=== PATIENT | female | born 1985 | race Caucasian/White ===

== ENCOUNTER 2016-06-02 10:31 | Observation (INO) | payer OTHER ==
[2016-05-20 11:14] VITALS: BP 156/78
[~2016-06-02 10:31] MED LIST: DOCU-27 PO; FERR325C PO; HYDR12.53 PO; SERT25TA PO; birth control
== END 2016-06-02 11:20 | disposition home or self-care (01) ==
LOC: 3 SO LND 10:31
PROVIDERS: ADMIT Obstetrics & Gynecology; ATTEND Obstetrics & Gynecology
DX: O36.8190 Decreased fetal movements, unspecified trimester, not applicable or unspecified (principal); Z3A.00 Weeks of gestation of pregnancy not specified
CPT/HCPCS: G0378; G0379; 59025

== ENCOUNTER 2016-06-18 08:20 | Observation (INO) | payer OTHER ==
[2016-05-20 11:14] VITALS: BP 156/78
[2016-06-18] MEDS ORDERED: IV RINGERS,LACTATED 1000ML 1,000 ML IV SCH ×2 (08:23→09:15)
[2016-06-18 10:10] LABS: BILIRUBIN,URINE NEGATIVE (NEG); GLUCOSE,URINE NEGATIVE (NEG)
[2016-06-18 10:11] LABS: BACTERIA,URINE FEW /HPF (0-FEW); NITRITE,URINE NEGATIVE (NEG); PH,URINE 6.5; PROTEIN,URINE TRACE mg/dL (NEG-TRACE); SQUAMOUS EPITHELIAL CELL,UR MANY /LPF; UROBILINOGEN,URINE 0.2 mg/dL (0.2 mg/dL)
[2016-06-18] MEDS ORDERED: BUTALB/APAP/CAFEIN 50/325/40MG TABLET. PO PRN (11:30)
== END 2016-06-18 11:30 | disposition home or self-care (01) ==
LOC: 3 SO LND 08:20
PROVIDERS: ADMIT Obstetrics & Gynecology; ATTEND Obstetrics & Gynecology
DX: O26.893 Other specified pregnancy related conditions, third trimester (principal); R51 Headache; R10.2 Pelvic and perineal pain; Z3A.30 30 weeks gestation of pregnancy
CPT/HCPCS: 81001; 87086; G0378; G0379

== ENCOUNTER 2016-07-14 11:01 | Observation (INO) | payer OTHER ==
[2016-05-20 11:14] VITALS: BP 156/78
[~2016-07-14 11:01] MED LIST changes: +DOCU-109 PO; -DOCU-27 PO
[2016-07-14] MEDS ORDERED: IV RINGERS,LACTATED 1000ML 1,000 ML IV SCH (11:15)
[2016-07-14 11:56] LABS: BILIRUBIN,URINE SMALL (NEG); GLUCOSE,URINE NEGATIVE (NEG); NITRITE,URINE NEGATIVE (NEG); PH,URINE 6.5; PROTEIN,URINE NEGATIVE (NEG-TRACE)
[2016-07-14 12:04] LABS: BASO % 0 % (0-3); EOS % 1 % (0-3); HEMATOCRIT 31.2 % (36.0-47.0); HEMOGLOBIN 10.5 g/dL (12.0-15.5); LYMPH # 1.4 x10^3/uL (1.0-4.8); LYMPH % 15 % (24-48); MEAN CORPUSCULAR HEMOGLOBIN 27 pg (25-35); MEAN CORPUSCULAR HGB CONC 34 g/dL (31-37); MEAN CORPUSCULAR VOLUME 80 fL (79-100); MONO % 7 % (0-9); NEUT % 77 % (31-73); PLATELET COUNT 212 x10^3/uL (140-400); RED BLOOD COUNT 3.89 x10^6/uL (3.50-5.40); RED CELL DISTRIBUTION WIDTH 13.6 % (11.5-14.5); WHITE BLOOD COUNT 9.7 x10^3/uL (4.0-11.0)
[2016-07-14 12:04] LABS: BACTERIA,URINE FEW /HPF (0-FEW); RBC,URINE 0 /HPF (0-2); SQUAMOUS EPITHELIAL CELL,UR MANY /LPF; WBC,URINE OCC /HPF (0-4)
[2016-07-14 12:13] LABS: CALCIUM 8.8 mg/dL (8.5-10.1); CREATININE 0.4 mg/dL (0.6-1.0); GFR 190.1; POTASSIUM 3.4 mmol/L (3.5-5.1)
[2016-07-14 12:18] LABS: ALBUMIN 2.5 g/dL (3.4-5.0); ALBUMIN/GLOBULIN RATIO 0.6 (1.0-1.7); TOTAL BILIRUBIN 0.2 mg/dL (0.2-1.0); TOTAL PROTEIN 6.8 g/dL (6.4-8.2); URIC ACID 3.5 mg/dL (2.6-6.0)
== END 2016-07-14 13:00 | disposition home or self-care (01) ==
LOC: 3 SO LND 11:01
PROVIDERS: ADMIT Obstetrics & Gynecology; ATTEND Obstetrics & Gynecology
DX: Z34.93 Encounter for supervision of normal pregnancy, unspecified, third trimester (principal); Z3A.34 34 weeks gestation of pregnancy
CPT/HCPCS: 36415; 80053; 81001; 84460; 84550; 85027; 87086; G0378; G0379; 59025

== ENCOUNTER 2016-07-15 12:00 | Observation (INO) | payer OTHER ==
[2016-05-20 11:14] VITALS: BP 156/78
[~2016-07-15 12:00] MED LIST changes: -DOCU-109 PO; +DOCU-27 PO
[2016-07-15] MEDS ORDERED: IV RINGERS,LACTATED 1000ML 1,000 ML IV SCH (16:03)
== END 2016-07-15 13:05 | disposition home or self-care (01) ==
LOC: 3 SO LND 12:00
PROVIDERS: ADMIT Obstetrics & Gynecology; ATTEND Obstetrics & Gynecology
DX: O26.893 Other specified pregnancy related conditions, third trimester (principal); R51 Headache; Z3A.00 Weeks of gestation of pregnancy not specified
CPT/HCPCS: G0378; G0379; 59025

== ENCOUNTER → 2016-07-16 | Outpatient (CLI) | payer OTHER ==
[2016-05-20 11:14] VITALS: BP 156/78
[~2016-07-16] MED LIST changes: +DOCU-109 PO; -DOCU-27 PO; +NIFE30TA2 PO; +OXYC-323 PO; +PEDI1TAB6 PO; +PROAIR HFA8.5 GM INH
[2016-07-16 18:12] LABS: TOTAL SERUM CREATININE 0.38 mg/dL (0.57-1.00); TOTAL URINE CREATININE 76.6 mg/dL (Not Estab.)
== END | disposition home or self-care (01) ==
LOC: LAB 09:52
PROVIDERS: ATTEND Obstetrics & Gynecology
DX: O14.93 Unspecified pre-eclampsia, third trimester (principal); Z3A.37 37 weeks gestation of pregnancy
CPT/HCPCS: 36415; 82575; 84156

== ENCOUNTER 2016-08-07 10:42 | Inpatient (IN) | payer OTHER ==
[~2016-08-07] VITALS: Ht 160 cm; Wt 103.0 kg
[~2016-08-07 10:42] MED LIST changes: -NIFE30TA2 PO; -OXYC-323 PO; -PEDI1TAB6 PO; -PROAIR HFA8.5 GM INH
[2016-08-07] MEDS ORDERED: TERBUTALINE 1 MG/ML VIAL. SQ PRN (11:00)
[2016-08-07] MEDS ORDERED: 0.9 % SODIUM CHLORIDE 10 ML DISP.SYRIN. IV PRN (11:00)
[2016-08-07] MEDS ORDERED: ACETAMINOPHEN 325 MG TABLET. PO PRN ×2 (11:00→14:30)
[2016-08-07] MEDS ORDERED: MAG HYDROX/ALUMINUM HYD/SIMETH 30 ML ORAL.SUSP PO PRN (11:00)
[2016-08-07] MEDS ORDERED: OXYTOCIN 30 UNIT/500 ML PREMIX 500 ML IV PRN (11:00)
[2016-08-07] MEDS ORDERED: hydrALAZINE 20 MG/ML VIAL. IVP PRN (11:00)
[2016-08-07] MEDS ORDERED: LIDOCAINE 1% PF 30 ML VIAL. INJ PRN (11:00)
[2016-08-07] MEDS ORDERED: ONDANSETRON PF 4 MG/2 ML VIAL. IV PRN (11:00)
[2016-08-07 12:08] LABS: HEMATOCRIT 30.5 % (36.0-47.0); HEMOGLOBIN 10.2 g/dL (12.0-15.5); RED BLOOD COUNT 3.88 x10^6/uL (3.50-5.40); RED CELL DISTRIBUTION WIDTH 13.9 % (11.5-14.5)
[2016-08-07] MEDS ORDERED: MAGNESIUM SULFATE 2GM 50 ML IV ONE (12:15)
[2016-08-07] MEDS ORDERED: MAGNESIUM SULFATE 4GM 100 ML IV ONE (12:15)
[2016-08-07 12:25] LABS: ALBUMIN 2.6 g/dL (3.4-5.0); ALBUMIN/GLOBULIN RATIO 0.7 (1.0-1.7); CALCIUM 8.6 mg/dL (8.5-10.1); CREATININE 0.4 mg/dL (0.6-1.0); GFR 190.1; POTASSIUM 3.5 mmol/L (3.5-5.1); TOTAL BILIRUBIN 0.3 mg/dL (0.2-1.0); TOTAL PROTEIN 6.5 g/dL (6.4-8.2)
[2016-08-07] MEDS ORDERED: MAGNESIUM SULFATE IV ONE (12:30)
[2016-08-07] MEDS ORDERED: NORMAL SALINE IV ONE (12:30)
[2016-08-07] MEDS: IV RINGERS,LACTATED 1000ML 1,000 ML IV SCH ×2 (12:41→22:03)
[2016-08-07 12:44] LABS: BILIRUBIN,URINE NEGATIVE (NEG); GLUCOSE,URINE NEGATIVE (NEG); NITRITE,URINE NEGATIVE (NEG); PROTEIN,URINE NEGATIVE (NEG-TRACE); UROBILINOGEN,URINE 0.2 mg/dL (0.2 mg/dL)
[2016-08-07] MEDS ORDERED: DINOPROSTONE 10 MG SUPP.VAG VG ONE (13:00)
[2016-08-07] MEDS: MAGNESIUM SULFATE 20GM 500 ML IV SCH ×2 (13:04→22:04)
--- NOTE | 2016-08-07 13:38 | PDOC1 ---
OB - History Hx of Present Care: Good Care Ultrasounds: Normal mid trimester US Obstetrical Complications: Pre-eclampsia Medical Complications: None Past Family/Social History * Past Medical, Surgical, Family and Obstetric Histories reviewed from chart. Rubella: Immune RPR/VDRL: Negative GBS Status: Negative HBsAG: Negative OB - Chief Complaint & HPI Date of Admission: Date of Admission: Aug 07, 2016 at 10:42 Chief Complaint/History : 5 Para: 4 EGA: 37 Reason for admission: other (preeclampsia) Indication for induction: other Admission Nurse Assessment Rev: Yes Problems: OB - Admission Exam Physical Exam HEENT: Normal Heart: Regular Rate Lungs: Clear Abdomen: Gravid, Non tender, Soft Extremities: Edema Reflexes: Hyperreflexia Present Cervical Dilatation: Fingertip Effacement: 25% Station: Ballotable Membranes: Intact Heart Rate: Normal Accelerations: Accelerations Present Decelerations: No decelerations Contractions on Admission: None Text A: 37 wks IUP Preeclampsia P: Admit for IOL. Start Magnesium sulfate and cervidil for induction. NIDIA TSE Jr, MD Aug 07, 2016 13:38
[2016-08-07] MEDS ORDERED: ACETAMINOPHEN 500 MG TABLET PO PRN (15:00)
[2016-08-07] MEDS ORDERED: diphenhydrAMINE HCL 25 MG CAPSULE PO PRN (19:45)
[2016-08-07] MEDS: BUTALB/APAP/CAFEIN 50/325/40MG TABLET. PO PRN (19:53)
[2016-08-07] MEDS: fentaNYL PF VIAL 100 MCG/2 ML VIAL IV PRN ×2 (22:02→23:40)
[2016-08-08] MEDS ORDERED: BUTORPHANOL 2 MG/ML VIAL. IV PRN (01:30)
[2016-08-08] MEDS: BUTALB/APAP/CAFEIN 50/325/40MG TABLET. PO PRN ×2 (05:42→18:29)
[2016-08-08] MEDS ORDERED: OXYTOCIN 30 UNIT/500 ML PREMIX 500 ML IV PRN (06:00)
[2016-08-08] MEDS: MAGNESIUM SULFATE 20GM 500 ML IV SCH ×2 (09:01→19:27)
--- NOTE | 2016-08-08 12:32 | PDOC ---
OB Progress Note Date of Service 08/08/16 Time of Evaluation 1225 Notes Pt. had headache through out night relieved with fioricet. Counseled on plan of care. Will use [facility] for EDC of 08/26/16. Lab Laboratory Tests Test 08/07/16 12:00 08/07/16 15:55 White Blood Count 8.0 x10^3/uL (4.0-11.0) Red Blood Count 3.88 x10^6/uL (3.50-5.40) Hemoglobin 10.2 g/dL (12.0-15.5) Hematocrit 30.5 % (36.0-47.0) Mean Corpuscular Volume 79 fL (79-100) Mean Corpuscular Hemoglobin 26 pg (25-35) Mean Corpuscular Hemoglobin Concent 33 g/dL (31-37) Red Cell Distribution Width 13.9 % (11.5-14.5) Platelet Count 218 x10^3/uL (140-400) Urine Collection Type Unknown Urine Color Yellow Urine Clarity Clear Urine pH 7.0 Urine Specific Weinert <=1.005 Urine Protein Negative mg/dL (NEG-TRACE) Urine Glucose (UA) Negative mg/dL (NEG) Urine Ketones (Stick) Negative mg/dL (NEG) Urine Blood Negative (NEG) Urine Nitrite Negative (NEG) Urine Bilirubin Negative (NEG) Urine Urobilinogen Dipstick 0.2 mg/dL (0.2 mg/dL) Urine Leukocyte Esterase Negative (NEG) Sodium Level 140 mmol/L (136-145) Potassium Level 3.5 mmol/L (3.5-5.1) Chloride Level 104 mmol/L (98-107) Carbon Dioxide Level 23 mmol/L (21-32) Anion Gap 13 (6-14) Blood Urea Nitrogen 2 mg/dL (7-20) Creatinine 0.4 mg/dL (0.6-1.0) Estimated GFR (Cockcroft-Gault) 190.1 BUN/Creatinine Ratio 5 (6-20) Glucose Level 81 mg/dL (70-99) Calcium Level 8.6 mg/dL (8.5-10.1) Total Bilirubin 0.3 mg/dL (0.2-1.0) Aspartate Amino Transf (AST/SGOT) 16 U/L (15-37) Alanine Aminotransferase (ALT/SGPT) 12 U/L (14-59) Alkaline Phosphatase 158 U/L (46-116) Total Protein 6.5 g/dL (6.4-8.2) Albumin 2.6 g/dL (3.4-5.0) Albumin/Globulin Ratio 0.7 (1.0-1.7) Rubella IgG Antibody 1.20 index (Immune >0.99) Laboratory Tests Test 08/07/16 15:55 Rubella IgG Antibody 1.20 index (Immune >0.99) Medications Current Medications Sodium Chloride (Normal Saline Flush) 3 ml QSHIFT PRN IV AFTER MEDS AND BLOOD DRAWS; Start 08/07/16 at 11:00 Ringer's Solution 1,000 ml @ 125 mls/hr Q8H IV Last administered on 08/07/16 22:03; Start 08/07/16 at 10:51 Fentanyl Citrate (Fentanyl 2ml Vial) 100 mcg PRN Q30MIN PRN IV Severe pain Last administered on 08/07/16 23:40; Start 08/07/16 at 11:00 Acetaminophen (Tylenol) 650 mg PRN Q6HRS PRN PO MILD PAIN / TEMP; Start at 11:00; Stop 08/07/16 at 14:49; Status DC Ondansetron HCl (Zofran) 4 mg PRN Q4HRS PRN IV NAUSEA/VOMITING; Start 08/07/16 at 11:00 Al Hydroxide/Mg Hydroxide (Mylanta Plus Xs) 30 ml PRN Q4HRS PRN PO HEARTBURN / GAS; Start 08/07/16 at 11:00 Terbutaline Sulfate (Brethine) 0.25 mg 1X PRN PRN SQ SEE COMMENTS; Start at 11:00; Stop 08/08/16 at 10:59; Status DC Lidocaine HCl 30 ml 1X PRN PRN INJ SEE COMMENTS; Start 08/07/16 at 11:00; Stop 08/09/16 at 10:59 Oxytocin/Sodium Chloride 500 ml @ 0 mls/hr CONT PRN IV SEE I/O RECORD Last administered on 08/08/16 05:55; Start 08/08/16 at 06:00 Oxytocin/Sodium Chloride 500 ml @ 0 mls/hr CONT PRN PRN IV Post delivery bleeding; Start 08/07/16 at 11:00 Dinoprostone (Cervidil) 10 mg 1X ONCE VG Last administered on 08/07/16 12:42 ; Start 08/07/16 at 13:00; Stop 08/07/16 at 13:01; Status DC Hydralazine HCl (Apresoline) 10 mg PRN Q20MIN PRN IVP ELEVATED BP, SEE COMMENTS ; Start 08/07/16 at 11:00 Magnesium Sulfate/ Dextrose 100 ml @ 25 mls/hr 1X ONCE IV ; Start 08/07/16 at 12:15; Stop 08/07/16 at 16:14; Status UNV Magnesium Sulfate/ Dextrose 50 ml @ 25 mls/hr 1X ONCE IV ; Start 08/07/16 at 12 :15; Stop 08/07/16 at 14:14; Status UNV Magnesium Sulfate 500 ml @ 50 mls/hr Q10H IV Last administered on 08/08/16 09 :01; Start 08/07/16 at 12:15 Magnesium Sulfate 6 gm/Sodium Chloride 112 ml @ 224 mls/hr 1X ONCE IV Last administered on 08/07/16 12:42; Start 08/07/16 at 12:30; Stop 08/07/16 at 12:59 ; Status DC Acetaminophen (Tylenol) 650 mg PRN Q6HRS PRN PO HEADACHE; Start 08/07/16 at 14: 30 Acetaminophen (Tylenol) 1,000 mg PRN Q6HRS PRN PO MILD PAIN / TEMP Last administered on 08/07/16 15:05; Start 08/07/16 at 15:00 Diphenhydramine HCl (Benadryl) 50 mg PRN Q6HRS PRN PO ITCHING; Start 08/07/16 at 19:45 Acetaminophen/ Butalbital/ Caffeine (Fioricet) 2 tab PRN Q6HRS PRN PO MIGRAINE HEADACHE Last administered on 08/08/16 05:42; Start 08/07/16 at 19:45 Butorphanol Tartrate (Stadol) 2 mg PRN Q2HR PRN IV LABOR PAIN Last administered on 08/08/16 01:38; Start 08/08/16 at 01:30 Active Scripts Active Reported [ control] Unknown Dose Colace (Docusate Sodium) 100 Mg Capsule 100 Mg PO Iron (Ferrous Sulfate) 325 Mg Capsule.er 325 Mg PO Hydrochlorothiazide Capsule (Hydrochlorothiazide) 12.5 Mg Capsule 12.5 Mg PO DAILY Zoloft (Sertraline Hcl) 25 Mg Tablet 25 Mg PO DAILY Exam Abd: soft, non tender Pelvic: cvx /-3 FHT's category 1 Pitocin at 20 milliUnits/min Ext: +1 edema, DTR's +2 adithya. Assessment A: 37 wks IUP Preeclampsia P: Continue with Magnesium sulfate and pitocin induction. NIDIA TSE Jr, MD Aug 08, 2016 12:32
[2016-08-08] MEDS ORDERED: DINOPROSTONE 10 MG SUPP.VAG VG ONE (19:00)
[2016-08-08] MEDS ORDERED: PROAIR HFA8.5 GM INH (20:26)
[2016-08-08] MEDS ORDERED: NIFE30TA2 PO (20:26)
[2016-08-08] MEDS ORDERED: PEDI1TAB6 PO (20:26)
[2016-08-09] MEDS: BUTALB/APAP/CAFEIN 50/325/40MG TABLET. PO PRN (02:03)
[2016-08-09] MEDS: MAGNESIUM SULFATE 20GM 500 ML IV SCH ×2 (05:25→15:18)
[2016-08-09] MEDS ORDERED: OXYTOCIN 30 UNIT/500 ML PREMIX 500 ML IV ONE (07:30)
[2016-08-09] MEDS: IV RINGERS,LACTATED 1000ML 1,000 ML IV SCH (09:11)
[2016-08-09 12:56] LABS: BASO % 0 % (0-3); EOS % 1 % (0-3); HEMATOCRIT 28.1 % (36.0-47.0); HEMOGLOBIN 9.3 g/dL (12.0-15.5); LYMPH # 1.6 x10^3/uL (1.0-4.8); LYMPH % 18 % (24-48); MEAN CORPUSCULAR HEMOGLOBIN 26 pg (25-35); MEAN CORPUSCULAR HGB CONC 33 g/dL (31-37); MEAN CORPUSCULAR VOLUME 78 fL (79-100); MONO % 7 % (0-9); NEUT % 74 % (31-73); PLATELET COUNT 207 x10^3/uL (140-400); RED BLOOD COUNT 3.59 x10^6/uL (3.50-5.40); RED CELL DISTRIBUTION WIDTH 14.2 % (11.5-14.5)
[2016-08-09 13:11] LABS: ALBUMIN 2.4 g/dL (3.4-5.0); ALBUMIN/GLOBULIN RATIO 0.6 (1.0-1.7); CALCIUM 7.5 mg/dL (8.5-10.1); CREATININE 0.4 mg/dL (0.6-1.0); GFR 190.1; MAGNESIUM 4.4 mg/dL (1.8-2.4); TOTAL BILIRUBIN 0.3 mg/dL (0.2-1.0); TOTAL PROTEIN 6.5 g/dL (6.4-8.2)
[2016-08-09 13:13] LABS: POTASSIUM 2.9 mmol/L (3.5-5.1)
[2016-08-09] MEDS ORDERED: POTASSIUM CL 40MEQ IN 0.9%NACL 1,000 ML IV ONE (13:30)
[2016-08-09] MEDS ORDERED: POTASSIUM CHLORIDE IV SCH ×2 (14:00→22:00)
[2016-08-09] MEDS ORDERED: RINGERS LACTATED IV SCH ×2 (14:00→22:00)
--- NOTE | 2016-08-09 14:23 | PDOC ---
OB Progress Note Date of Service 08/09/16 Time of Evaluation 1420 Notes Pt. feeling well. No headache today. BP remain labile unless sitting up, then BP elevate > 140/90. No CP or SOB. Lab Laboratory Tests Test 08/07/16 15:55 08/09/16 12:43 Rubella IgG Antibody 1.20 index (Immune >0.99) White Blood Count 9.0 x10^3/uL (4.0-11.0) Red Blood Count 3.59 x10^6/uL (3.50-5.40) Hemoglobin 9.3 g/dL (12.0-15.5) Hematocrit 28.1 % (36.0-47.0) Mean Corpuscular Volume 78 fL (79-100) Mean Corpuscular Hemoglobin 26 pg (25-35) Mean Corpuscular Hemoglobin Concent 33 g/dL (31-37) Red Cell Distribution Width 14.2 % (11.5-14.5) Platelet Count 207 x10^3/uL (140-400) Neutrophils (%) (Auto) 74 % (31-73) Lymphocytes (%) (Auto) 18 % (24-48) Monocytes (%) (Auto) 7 % (0-9) Eosinophils (%) (Auto) 1 % (0-3) Basophils (%) (Auto) 0 % (0-3) Neutrophils # (Auto) 6.7 x10^3uL (1.8-7.7) Lymphocytes # (Auto) 1.6 x10^3/uL (1.0-4.8) Monocytes # (Auto) 0.6 x10^3/uL (0.0-1.1) Eosinophils # (Auto) 0.1 x10^3/uL (0.0-0.7) Basophils # (Auto) 0.0 x10^3/uL (0.0-0.2) Sodium Level 139 mmol/L (136-145) Potassium Level 2.9 mmol/L (3.5-5.1) Chloride Level 103 mmol/L (98-107) Carbon Dioxide Level 24 mmol/L (21-32) Anion Gap 12 (6-14) Blood Urea Nitrogen 2 mg/dL (7-20) Creatinine 0.4 mg/dL (0.6-1.0) Estimated GFR (Cockcroft-Gault) 190.1 BUN/Creatinine Ratio 5 (6-20) Glucose Level 86 mg/dL (70-99) Calcium Level 7.5 mg/dL (8.5-10.1) Magnesium Level 4.4 mg/dL (1.8-2.4) Total Bilirubin 0.3 mg/dL (0.2-1.0) Aspartate Amino Transf (AST/SGOT) 14 U/L (15-37) Alanine Aminotransferase (ALT/SGPT) 12 U/L (14-59) Alkaline Phosphatase 150 U/L (46-116) Total Protein 6.5 g/dL (6.4-8.2) Albumin 2.4 g/dL (3.4-5.0) Albumin/Globulin Ratio 0.6 (1.0-1.7) Laboratory Tests Test 08/09/16 12:43 White Blood Count 9.0 x10^3/uL (4.0-11.0) Red Blood Count 3.59 x10^6/uL (3.50-5.40) Hemoglobin 9.3 g/dL (12.0-15.5) Hematocrit 28.1 % (36.0-47.0) Mean Corpuscular Volume 78 fL (79-100) Mean Corpuscular Hemoglobin 26 pg (25-35) Mean Corpuscular Hemoglobin Concent 33 g/dL (31-37) Red Cell Distribution Width 14.2 % (11.5-14.5) Platelet Count 207 x10^3/uL (140-400) Neutrophils (%) (Auto) 74 % (31-73) Lymphocytes (%) (Auto) 18 % (24-48) Monocytes (%) (Auto) 7 % (0-9) Eosinophils (%) (Auto) 1 % (0-3) Basophils (%) (Auto) 0 % (0-3) Neutrophils # (Auto) 6.7 x10^3uL (1.8-7.7) Lymphocytes # (Auto) 1.6 x10^3/uL (1.0-4.8) Monocytes # (Auto) 0.6 x10^3/uL (0.0-1.1) Eosinophils # (Auto) 0.1 x10^3/uL (0.0-0.7) Basophils # (Auto) 0.0 x10^3/uL (0.0-0.2) Sodium Level 139 mmol/L (136-145) Potassium Level 2.9 mmol/L (3.5-5.1) Chloride Level 103 mmol/L (98-107) Carbon Dioxide Level 24 mmol/L (21-32) Anion Gap 12 (6-14) Blood Urea Nitrogen 2 mg/dL (7-20) Creatinine 0.4 mg/dL (0.6-1.0) Estimated GFR (Cockcroft-Gault) 190.1 BUN/Creatinine Ratio 5 (6-20) Glucose Level 86 mg/dL (70-99) Calcium Level 7.5 mg/dL (8.5-10.1) Magnesium Level 4.4 mg/dL (1.8-2.4) Total Bilirubin 0.3 mg/dL (0.2-1.0) Aspartate Amino Transf (AST/SGOT) 14 U/L (15-37) Alanine Aminotransferase (ALT/SGPT) 12 U/L (14-59) Alkaline Phosphatase 150 U/L (46-116) Total Protein 6.5 g/dL (6.4-8.2) Albumin 2.4 g/dL (3.4-5.0) Albumin/Globulin Ratio 0.6 (1.0-1.7) Medications Current Medications Sodium Chloride (Normal Saline Flush) 3 ml QSHIFT PRN IV AFTER MEDS AND BLOOD DRAWS; Start 08/07/16 at 11:00 Ringer's Solution 1,000 ml @ 125 mls/hr Q8H IV Last administered on 08/09/16 09:11; Start 08/07/16 at 10:51 Fentanyl Citrate (Fentanyl 2ml Vial) 100 mcg PRN Q30MIN PRN IV Severe pain Last administered on 08/07/16 23:40; Start 08/07/16 at 11:00 Acetaminophen (Tylenol) 650 mg PRN Q6HRS PRN PO MILD PAIN / TEMP; Start at 11:00; Stop 08/07/16 at 14:49; Status DC Ondansetron HCl (Zofran) 4 mg PRN Q4HRS PRN IV NAUSEA/VOMITING; Start 08/07/16 at 11:00 Al Hydroxide/Mg Hydroxide (Mylanta Plus Xs) 30 ml PRN Q4HRS PRN PO HEARTBURN / GAS; Start 08/07/16 at 11:00 Terbutaline Sulfate (Brethine) 0.25 mg 1X PRN PRN SQ SEE COMMENTS; Start at 11:00; Stop 08/08/16 at 10:59; Status DC Lidocaine HCl 30 ml 1X PRN PRN INJ SEE COMMENTS; Start 08/07/16 at 11:00; Stop 08/09/16 at 10:59; Status DC Oxytocin/Sodium Chloride 500 ml @ 0 mls/hr CONT PRN IV SEE I/O RECORD Last administered on 08/08/16 05:55; Start 08/08/16 at 06:00; Stop 08/08/16 at 17:34 ; Status DC Oxytocin/Sodium Chloride 500 ml @ 0 mls/hr CONT PRN PRN IV Post delivery bleeding; Start 08/07/16 at 11:00 Dinoprostone (Cervidil) 10 mg 1X ONCE VG Last administered on 08/07/16 12:42 ; Start 08/07/16 at 13:00; Stop 08/07/16 at 13:01; Status DC Hydralazine HCl (Apresoline) 10 mg PRN Q20MIN PRN IVP ELEVATED BP, SEE COMMENTS ; Start 08/07/16 at 11:00 Magnesium Sulfate/ Dextrose 100 ml @ 25 mls/hr 1X ONCE IV ; Start 08/07/16 at 12:15; Stop 08/07/16 at 16:14; Status UNV Magnesium Sulfate/ Dextrose 50 ml @ 25 mls/hr 1X ONCE IV ; Start 08/07/16 at 12 :15; Stop 08/07/16 at 14:14; Status UNV Magnesium Sulfate 500 ml @ 50 mls/hr Q10H IV Last administered on 08/09/16 05 :25; Start 08/07/16 at 12:15 Magnesium Sulfate 6 gm/Sodium Chloride 112 ml @ 224 mls/hr 1X ONCE IV Last administered on 08/07/16 12:42; Start 08/07/16 at 12:30; Stop 08/07/16 at 12:59 ; Status DC Acetaminophen (Tylenol) 650 mg PRN Q6HRS PRN PO HEADACHE; Start 08/07/16 at 14: 30 Acetaminophen (Tylenol) 1,000 mg PRN Q6HRS PRN PO MILD PAIN / TEMP Last administered on 08/07/16 15:05; Start 08/07/16 at 15:00 Diphenhydramine HCl (Benadryl) 50 mg PRN Q6HRS PRN PO ITCHING; Start 08/07/16 at 19:45 Acetaminophen/ Butalbital/ Caffeine (Fioricet) 2 tab PRN Q6HRS PRN PO MIGRAINE HEADACHE Last administered on 08/09/16 02:03; Start 08/07/16 at 19:45 Butorphanol Tartrate (Stadol) 2 mg PRN Q2HR PRN IV LABOR PAIN Last administered on 08/08/16 01:38; Start 08/08/16 at 01:30 Dinoprostone (Cervidil) 10 mg 1X ONCE VG Last administered on 08/08/16 19:27 ; Start 08/08/16 at 19:00; Stop 08/08/16 at 19:01; Status DC Oxytocin/Sodium Chloride 500 ml @ 0 mls/hr 1X ONCE IV Last administered on 09:10; Start 08/09/16 at 07:30; Stop 08/09/16 at 07:31; Status DC Potassium Chloride/Sodium Chloride 1,000 ml @ 75 mls/hr 1X ONCE IV ; Start at 13:30; Stop 08/09/16 at 13:34; Status DC Potassium Chloride 40 meq/ Ringer's Solution 1,020 ml @ 75 mls/hr [id number] IV Last administered on 08/09/16 14:00; Start 08/09/16 at 14:00; Stop 08/10/16 at 03:35 Active Scripts Active Reported Flintstones (Pediatric Multivit Comb No.42) 1 Each Tab.chew 1 Each PO DAILY Proair Hfa Inhaler (Albuterol Sulfate) 8.5 Gm Hfa.aer.ad 1 Puff INH PRN Q6HRS PRN Procardia Xl (Nifedipine) 30 Mg Tab.er.24 30 Mg PO DAILY Exam Cvx: /-3 AROM: large amount clear fluid IUPC placed. Category 1 ctx's every 2 to 5 mins Pitocin at 20 milliUnits/min Magnesium sulfate at 2gm/hour Assessment 37wks +5 days IUP Preeclampsia Plan of Care: Continue current Tx, Mgmt NIDIA STE Jr, MD Aug 09, 2016 14:23
[2016-08-09] MEDS ORDERED: L&D EPIDURAL CASSETTE 100 ML EP ONE (14:36)
[2016-08-09] MEDS ORDERED: ROPIVacaine 0.2% IN 0.9%NACL PF 40 MG/20 ML DISP.SYRIN. ONE ×2 (14:37→18:00)
[2016-08-09] MEDS ORDERED: ROPIVacaine 0.2% PF 10 ML VIAL. EPI ONE (15:30)
[2016-08-09] MEDS ORDERED: L&D EPIDURAL CASSETTE 100 ML EP PRN (15:30)
[2016-08-09] MEDS ORDERED: ONDANSETRON PF 4 MG/2 ML VIAL. IV PRN ×2 (15:30→20:30)
[2016-08-09] MEDS ORDERED: fentaNYL PF VIAL 100 MCG/2 ML VIAL EPI ONE (15:30)
[2016-08-09] MEDS ORDERED: ePHEDrine PF IN SALINE 50 MG/5 ML DISP.SYRIN IV PRN (15:30)
[2016-08-09] MEDS ORDERED: NALOXONE 0.4 MG/ML VIAL. IV PRN ×3 (15:30→20:30)
[2016-08-09] MEDS ORDERED: TERBUTALINE 1 MG/ML VIAL. ONE ×2 (18:00→18:56)
[2016-08-09] MEDS ORDERED: miSOPROStol 200MCG TAB 200 MCG TABLET ONE ×2 (18:00→19:06)
[2016-08-09] MEDS ORDERED: METHYLERGONOVINE MALEATE 0.2 MG/ML VIAL. IM ONE ×2 (18:00→19:31)
[2016-08-09] MEDS ORDERED: SUCCINYLCHOLINE 200 MG/10 ML VIAL. ONE (19:07)
[2016-08-09] MEDS ORDERED: CHLOROPROCAINE 3% MPF 20 ML VIAL. ONE (19:14)
[2016-08-09] MEDS ORDERED: fentaNYL PF VIAL 100 MCG/2 ML VIAL ONE (19:35)
[2016-08-09] MEDS ORDERED: OXYTOCIN 10 UNIT/ML VIAL. ONE ×3 (19:36→19:51)
[2016-08-09] MEDS ORDERED: ceFAZolin 1GM IVPB FOR OMNI 100 ML IV ONE (19:44)
[2016-08-09] MEDS ORDERED: ceFAZolin 1GM IVPB FOR OMNI 1 GM/50 ML BAG IV ONE (20:00)
[2016-08-09] MEDS ORDERED: ONDANSETRON PF 4 MG/2 ML VIAL. ONE (20:14)
[2016-08-09] MEDS ORDERED: ATROPINE 0.5 MG/5 ML DISP.SYRIN. IV PRN (20:15)
--- NOTE | 2016-08-09 20:26 | PDOC4 ---
OB Operative Note PRE OP DIAGNOSIS: NRFHT POST OP DIAGNOSIS: Other (Same and Placental abruption) OPERATION PERFORMED: [address] Velasquez Anesthesia: Gen Blood Loss 1500 ml Specimen placenta and infant OB Findings: Position (Vertex), Sex (Female), (7/8), Weight (2135 Gram), Other (placenta abruption) Complications none Additional Remarks pt. NIDIA Parrish Jr, MD Aug 09, 2016 20:26
[2016-08-09] MEDS ORDERED: diphenhydrAMINE ORAL ELIXIR 12.5 MG/5 ML ML PO PRN (20:30)
[2016-08-09] MEDS ORDERED: MAG HYDROX/ALUMINUM HYD/SIMETH 30 ML ORAL.SUSP PO PRN (20:30)
[2016-08-09] MEDS ORDERED: OXYTOCIN 30 UNIT/500 ML PREMIX 500 ML IV PRN (20:30)
[2016-08-09] MEDS ORDERED: IBUPROFEN 800 MG TABLET. PO PRN (20:30)
[2016-08-09] MEDS ORDERED: 0.9 % SODIUM CHLORIDE 10 ML DISP.SYRIN. IV PRN (20:30)
[2016-08-09] MEDS ORDERED: ZOLPIDEM 5 MG TABLET. PO PRN (20:30)
[2016-08-09] MEDS ORDERED: SIMETHICONE 80 MG TAB.CHEW PO PRN (20:30)
[2016-08-09] MEDS ORDERED: MAGNESIUM SULFATE 20GM 500 ML IV SCH (21:00)
[2016-08-09 21:25] LABS: HEMATOCRIT 24.6 % (36.0-47.0); HEMOGLOBIN 7.9 g/dL (12.0-15.5); RED BLOOD COUNT 3.11 x10^6/uL (3.50-5.40); RED CELL DISTRIBUTION WIDTH 13.8 % (11.5-14.5); WHITE BLOOD COUNT 18.2 x10^3/uL (4.0-11.0)
--- NOTE | 2016-08-09 21:36 | OP ---
DATE OF SURGERY: PREOPERATIVE DIAGNOSES: 1. A 37-1/2 weeks intrauterine . 2. Preeclampsia. 3. Nonreassuring heart tones. POSTOPERATIVE DIAGNOSES: 1. A 37-1/2 weeks intrauterine . 2. Preeclampsia. 3. Nonreassuring heart tones. 4. Placental abruption. PROCEDURE: Primary low transverse section. SURGEON: Nidia Velasquez MD ANESTHESIA: GETA. ESTIMATED BLOOD LOSS: 1500 mL. COMPLICATIONS: None. FINDINGS: Viable female , Apgars 7 and 8, weight 2135 grams. Three-vessel cord placenta delivered manually intact, about 30% placental abruption visualized. SUMMARY: A 30-year-old 5, para 4, presented for induction of labor secondary to preeclampsia. The patient had been ____ over a 2-day induction using Cervidil as well as Pitocin during day #2. AROM was performed, which elicited a moderate amount of clear fluid. She was 2 cm at the time. An intrauterine pressure catheter was placed. The patient was provided with Pitocin augmentation; however, she began having nonreassuring heart tones, which required emergent section. The patient was counseled on the risks, benefits and expectations and voiced a clear understanding to proceed. DESCRIPTION OF PROCEDURE: The patient was taken to surgery suite, placed in dorsal supine position. She was prepped with ChloraPrep and draped in sterile fashion. After adequate anesthesia, a Pfannenstiel skin incision was made with a scalpel down to through the fascia. The fascia was extended laterally using curved Up scissors. The superior edge of the fascia grasped with two Adriana clamps and dissected free of the abdominal rectus muscle superiorly using blunt dissection along with Bovie cautery. The same process took place inferiorly. The abdominal rectus muscles were then dissected bluntly at the midline. Peritoneum was grasped with 2 hemostats and entered sharply with Metzenbaum scissors. This incision was extended superiorly as well as inferiorly. The Jagdish ring retractor was placed. Low transverse hysterotomy incision made with the scalpel down to and through the amniotic sac. The hysterotomy incision was extended laterally and superiorly digitally. With the aid of fundal pressure, the 's head was delivered in a smooth atraumatic manner. With additional fundal pressure, the anterior shoulder was delivered followed by a posterior shoulder and rest of the female was delivered. was suctioned with a bulb syringe orally and nasally, umbilical cord was clamped twice and cut. A viable female infant was handed to awaiting nursing staff. The arterial pH was then obtained. Three-vessel cord placenta was delivered manually. There appeared to be about 30% abruption of the placental tissue. The uterus was cleared of clot and debris with a moist lap. The hysterotomy incision was reapproximated using 1-0 Vicryl suture in a running locked fashion. Due to some mild uterine atony 800 mcg of Cytotec was placed intrauterine and imbricated layer using 1-0 Vicryl suture was placed for better hemostasis in a running fashion. A [id number] was placed in the right apex of the hysterotomy incision for better hemostasis. Uterus was then palpated firm. Fallopian tubes and ovaries appeared normal bilaterally. Posterior cul-de-sac was cleared of clot and debris with moist lap. The uterus was then returned to the abdomen. Pericolic gutters were cleared of clot and debris with moist lap. The hysterotomy incision was hemostatic. Interceed was placed over the hysterotomy incision in an inverted T fashion. The Jagdish ring retractor was removed. The peritoneum was reapproximated using 1-0 Vicryl suture in a running fashion. Fascia was reapproximated with 0 Vicryl suture in a running fashion. Skin was reapproximated using 4-0 Vicryl suture in a subcuticular manner. X-ray was performed due to OB emergency, which was clear of any retained foreign objects. The patient tolerated the procedure well, was sent to recovery in stable condition. NIDIA VELASQUEZ MD DR: RAUL/edilberto JOB#: [id number] / [id number]
[2016-08-09 23:00] VITALS: BP 114/63
[2016-08-10] VITALS (18 sets, daily range): BP systolic 105–136; BP diastolic 51–81
[2016-08-10 04:35] LABS: BASO % 0 % (0-3); EOS % 0 % (0-3); LYMPH # 1.5 x10^3/uL (1.0-4.8); LYMPH % 16 % (24-48); MEAN CORPUSCULAR HEMOGLOBIN 26 pg (25-35); MEAN CORPUSCULAR HGB CONC 33 g/dL (31-37); MEAN CORPUSCULAR VOLUME 78 fL (79-100); MONO % 7 % (0-9); NEUT % 77 % (31-73); PLATELET COUNT 203 x10^3/uL (140-400); RED BLOOD COUNT 2.48 x10^6/uL (3.50-5.40); RED CELL DISTRIBUTION WIDTH 13.8 % (11.5-14.5); WHITE BLOOD COUNT 9.6 x10^3/uL (4.0-11.0)
[2016-08-10 04:55] LABS: HEMOGLOBIN 6.4 g/dL (12.0-15.5)
[2016-08-10 04:56] LABS: HEMATOCRIT 19.4 % (36.0-47.0)
[2016-08-10 05:11] LABS: CREATININE 0.5 mg/dL (0.6-1.0); GFR 146.9; POTASSIUM 3.3 mmol/L (3.5-5.1)
--- NOTE | 2016-08-10 09:17 | RAD ---
Indication post ." Across study. Assess for potential retained foreign body. A single view incorporated in the lower abdomen and pelvis was obtained. The abdominal gas pattern is normal. No unexpected finding is seen. No retained radiopaque foreign body is seen
[2016-08-10 10:13] LABS: RPR REFLEX Negative (Non Reactive)
--- NOTE | 2016-08-10 11:43 | PDOC ---
OB Progress Note Date of Service 08/10/16 Time of Evaluation 1135 Notes Pt. feeling well. No headache, N/V, CP or SOB. Pain controlled with HOSPITAL NURSE pump. She is tolerating regular diet. Lab Laboratory Tests Test 08/09/16 12:43 08/09/16 21:20 08/10/16 04:10 White Blood Count 9.0 x10^3/uL (4.0-11.0) 18.2 x10^3/uL (4.0-11.0) 9.6 x10^3/uL (4.0-11.0) Red Blood Count 3.59 x10^6/uL (3.50-5.40) 3.11 x10^6/uL (3.50-5.40) 2.48 x10^6/uL (3.50-5.40) Hemoglobin 9.3 g/dL (12.0-15.5) 7.9 g/dL (12.0-15.5) 6.4 g/dL (12.0-15.5) Hematocrit 28.1 % (36.0-47.0) 24.6 % (36.0-47.0) 19.4 % (36.0-47.0) Mean Corpuscular Volume 78 fL (79-100) 79 fL (79-100) 78 fL (79-100) Mean Corpuscular Hemoglobin 26 pg (25-35) 26 pg (25-35) 26 pg (25-35) Mean Corpuscular Hemoglobin Concent 33 g/dL (31-37) 32 g/dL (31-37) 33 g/dL (31-37) Red Cell Distribution Width 14.2 % (11.5-14.5) 13.8 % (11.5-14.5) 13.8 % (11.5-14.5) Platelet Count 207 x10^3/uL (140-400) 254 x10^3/uL (140-400) 203 x10^3/uL (140-400) Neutrophils (%) (Auto) 74 % (31-73) 77 % (31-73) Lymphocytes (%) (Auto) 18 % (24-48) 16 % (24-48) Monocytes (%) (Auto) 7 % (0-9) 7 % (0-9) Eosinophils (%) (Auto) 1 % (0-3) 0 % (0-3) Basophils (%) (Auto) 0 % (0-3) 0 % (0-3) Neutrophils # (Auto) 6.7 x10^3uL (1.8-7.7) 7.3 x10^3uL (1.8-7.7) Lymphocytes # (Auto) 1.6 x10^3/uL (1.0-4.8) 1.5 x10^3/uL (1.0-4.8) Monocytes # (Auto) 0.6 x10^3/uL (0.0-1.1) 0.7 x10^3/uL (0.0-1.1) Eosinophils # (Auto) 0.1 x10^3/uL (0.0-0.7) 0.0 x10^3/uL (0.0-0.7) Basophils # (Auto) 0.0 x10^3/uL (0.0-0.2) 0.0 x10^3/uL (0.0-0.2) Sodium Level 139 mmol/L (136-145) 136 mmol/L (136-145) Potassium Level 2.9 mmol/L (3.5-5.1) 3.3 mmol/L (3.5-5.1) Chloride Level 103 mmol/L (98-107) 102 mmol/L (98-107) Carbon Dioxide Level 24 mmol/L (21-32) 26 mmol/L (21-32) Anion Gap 12 (6-14) 8 (6-14) Blood Urea Nitrogen 2 mg/dL (7-20) 3 mg/dL (7-20) Creatinine 0.4 mg/dL (0.6-1.0) 0.5 mg/dL (0.6-1.0) Estimated GFR (Cockcroft-Gault) 190.1 146.9 BUN/Creatinine Ratio 5 (6-20) Glucose Level 86 mg/dL (70-99) 96 mg/dL (70-99) Calcium Level 7.5 mg/dL (8.5-10.1) 7.0 mg/dL (8.5-10.1) Magnesium Level 4.4 mg/dL (1.8-2.4) Total Bilirubin 0.3 mg/dL (0.2-1.0) Aspartate Amino Transf (AST/SGOT) 14 U/L (15-37) Alanine Aminotransferase (ALT/SGPT) 12 U/L (14-59) Alkaline Phosphatase 150 U/L (46-116) Total Protein 6.5 g/dL (6.4-8.2) Albumin 2.4 g/dL (3.4-5.0) Albumin/Globulin Ratio 0.6 (1.0-1.7) Laboratory Tests Test 08/09/16 12:43 08/09/16 21:20 08/10/16 04:10 White Blood Count 9.0 x10^3/uL (4.0-11.0) 18.2 x10^3/uL (4.0-11.0) 9.6 x10^3/uL (4.0-11.0) Red Blood Count 3.59 x10^6/uL (3.50-5.40) 3.11 x10^6/uL (3.50-5.40) 2.48 x10^6/uL (3.50-5.40) Hemoglobin 9.3 g/dL (12.0-15.5) 7.9 g/dL (12.0-15.5) 6.4 g/dL (12.0-15.5) Hematocrit 28.1 % (36.0-47.0) 24.6 % (36.0-47.0) 19.4 % (36.0-47.0) Mean Corpuscular Volume 78 fL (79-100) 79 fL (79-100) 78 fL (79-100) Mean Corpuscular Hemoglobin 26 pg (25-35) 26 pg (25-35) 26 pg (25-35) Mean Corpuscular Hemoglobin Concent 33 g/dL (31-37) 32 g/dL (31-37) 33 g/dL (31-37) Red Cell Distribution Width 14.2 % (11.5-14.5) 13.8 % (11.5-14.5) 13.8 % (11.5-14.5) Platelet Count 207 x10^3/uL (140-400) 254 x10^3/uL (140-400) 203 x10^3/uL (140-400) Neutrophils (%) (Auto) 74 % (31-73) 77 % (31-73) Lymphocytes (%) (Auto) 18 % (24-48) 16 % (24-48) Monocytes (%) (Auto) 7 % (0-9) 7 % (0-9) Eosinophils (%) (Auto) 1 % (0-3) 0 % (0-3) Basophils (%) (Auto) 0 % (0-3) 0 % (0-3) Neutrophils # (Auto) 6.7 x10^3uL (1.8-7.7) 7.3 x10^3uL (1.8-7.7) Lymphocytes # (Auto) 1.6 x10^3/uL (1.0-4.8) 1.5 x10^3/uL (1.0-4.8) Monocytes # (Auto) 0.6 x10^3/uL (0.0-1.1) 0.7 x10^3/uL (0.0-1.1) Eosinophils # (Auto) 0.1 x10^3/uL (0.0-0.7) 0.0 x10^3/uL (0.0-0.7) Basophils # (Auto) 0.0 x10^3/uL (0.0-0.2) 0.0 x10^3/uL (0.0-0.2) Sodium Level 139 mmol/L (136-145) 136 mmol/L (136-145) Potassium Level 2.9 mmol/L (3.5-5.1) 3.3 mmol/L (3.5-5.1) Chloride Level 103 mmol/L (98-107) 102 mmol/L (98-107) Carbon Dioxide Level 24 mmol/L (21-32) 26 mmol/L (21-32) Anion Gap 12 (6-14) 8 (6-14) Blood Urea Nitrogen 2 mg/dL (7-20) 3 mg/dL (7-20) Creatinine 0.4 mg/dL (0.6-1.0) 0.5 mg/dL (0.6-1.0) Estimated GFR (Cockcroft-Gault) 190.1 146.9 BUN/Creatinine Ratio 5 (6-20) Glucose Level 86 mg/dL (70-99) 96 mg/dL (70-99) Calcium Level 7.5 mg/dL (8.5-10.1) 7.0 mg/dL (8.5-10.1) Magnesium Level 4.4 mg/dL (1.8-2.4) Total Bilirubin 0.3 mg/dL (0.2-1.0) Aspartate Amino Transf (AST/SGOT) 14 U/L (15-37) Alanine Aminotransferase (ALT/SGPT) 12 U/L (14-59) Alkaline Phosphatase 150 U/L (46-116) Total Protein 6.5 g/dL (6.4-8.2) Albumin 2.4 g/dL (3.4-5.0) Albumin/Globulin Ratio 0.6 (1.0-1.7) Medications Current Medications Sodium Chloride (Normal Saline Flush) 3 ml QSHIFT PRN IV AFTER MEDS AND BLOOD DRAWS; Start 08/07/16 at 11:00; Stop 08/09/16 at 20:34; Status DC Ringer's Solution 1,000 ml @ 125 mls/hr Q8H IV Last administered on 08/09/16 09:11; Start 08/07/16 at 10:51; Stop 08/09/16 at 21:17; Status DC Fentanyl Citrate (Fentanyl 2ml Vial) 100 mcg PRN Q30MIN PRN IV Severe pain Last administered on 08/07/16 23:40; Start 08/07/16 at 11:00; Stop 08/09/16 at 20:46; Status DC Acetaminophen (Tylenol) 650 mg PRN Q6HRS PRN PO MILD PAIN / TEMP; Start at 11:00; Stop 08/07/16 at 14:49; Status DC Ondansetron HCl (Zofran) 4 mg PRN Q4HRS PRN IV NAUSEA/VOMITING; Start 08/07/16 at 11:00; Stop 08/09/16 at 20:36; Status DC Al Hydroxide/Mg Hydroxide (Mylanta Plus Xs) 30 ml PRN Q4HRS PRN PO HEARTBURN / GAS; Start 08/07/16 at 11:00; Stop 08/09/16 at 20:35; Status DC Terbutaline Sulfate (Brethine) 0.25 mg 1X PRN PRN SQ SEE COMMENTS; Start at 11:00; Stop 08/08/16 at 10:59; Status DC Lidocaine HCl 30 ml 1X PRN PRN INJ SEE COMMENTS; Start 08/07/16 at 11:00; Stop 08/09/16 at 10:59; Status DC Oxytocin/Sodium Chloride 500 ml @ 0 mls/hr CONT PRN IV SEE I/O RECORD Last administered on 08/08/16 05:55; Start 08/08/16 at 06:00; Stop 08/08/16 at 17:34 ; Status DC Oxytocin/Sodium Chloride 500 ml @ 0 mls/hr CONT PRN PRN IV Post delivery bleeding; Start 08/07/16 at 11:00 Dinoprostone (Cervidil) 10 mg 1X ONCE VG Last administered on 08/07/16 12:42 ; Start 08/07/16 at 13:00; Stop 08/07/16 at 13:01; Status DC Hydralazine HCl (Apresoline) 10 mg PRN Q20MIN PRN IVP ELEVATED BP, SEE COMMENTS ; Start 08/07/16 at 11:00 Magnesium Sulfate/ Dextrose 100 ml @ 25 mls/hr 1X ONCE IV ; Start 08/07/16 at 12:15; Stop 08/07/16 at 16:14; Status UNV Magnesium Sulfate/ Dextrose 50 ml @ 25 mls/hr 1X ONCE IV ; Start 08/07/16 at 12 :15; Stop 08/07/16 at 14:14; Status UNV Magnesium Sulfate 500 ml @ 50 mls/hr Q10H IV Last administered on 08/09/16 15 :18; Start 08/07/16 at 12:15; Stop 08/09/16 at 21:17; Status DC Magnesium Sulfate 6 gm/Sodium Chloride 112 ml @ 224 mls/hr 1X ONCE IV Last administered on 08/07/16 12:42; Start 08/07/16 at 12:30; Stop 08/07/16 at 12:59 ; Status DC Acetaminophen (Tylenol) 650 mg PRN Q6HRS PRN PO HEADACHE; Start 08/07/16 at 14: 30 Acetaminophen (Tylenol) 1,000 mg PRN Q6HRS PRN PO MILD PAIN / TEMP Last administered on 08/07/16 15:05; Start 08/07/16 at 15:00 Diphenhydramine HCl (Benadryl) 50 mg PRN Q6HRS PRN PO ITCHING; Start 08/07/16 at 19:45 Acetaminophen/ Butalbital/ Caffeine (Fioricet) 2 tab PRN Q6HRS PRN PO MIGRAINE HEADACHE Last administered on 08/09/16 02:03; Start 08/07/16 at 19:45 Butorphanol Tartrate (Stadol) 2 mg PRN Q2HR PRN IV LABOR PAIN Last administered on 08/08/16 01:38; Start 08/08/16 at 01:30; Stop 08/09/16 at 20:46 ; Status DC Dinoprostone (Cervidil) 10 mg 1X ONCE VG Last administered on 08/08/16 19:27 ; Start 08/08/16 at 19:00; Stop 08/08/16 at 19:01; Status DC Oxytocin/Sodium Chloride 500 ml @ 0 mls/hr 1X ONCE IV Last administered on 09:10; Start 08/09/16 at 07:30; Stop 08/09/16 at 07:31; Status DC Potassium Chloride/Sodium Chloride 1,000 ml @ 75 mls/hr 1X ONCE IV ; Start at 13:30; Stop 08/09/16 at 13:34; Status DC Potassium Chloride 40 meq/ Ringer's Solution 1,020 ml @ 75 mls/hr [id number] IV Last administered on 08/09/16 14:00; Start 08/09/16 at 14:00; Stop 08/09/16 at 21:17; Status DC Ropivacaine/ Fentanyl/NS 100 ml @ As Directed STK-MED ONCE EP ; Start 08/09/16 at 14:36; Stop 08/09/16 at 14:37; Status DC Ropivacaine 40 mg STK-MED ONCE .ROUTE ; Start 08/09/16 at 14:37; Stop 08/09/16 at 14:38; Status DC Ephedrine Sulfate 10 mg PRN Q2MIN PRN IV IF SBP<90; Start 08/09/16 at 15:30 Naloxone HCl (Narcan) 0.04 mg PRN Q1MIN PRN IV SEE COMMENTS; Start 08/09/16 at 15:30; Stop 08/09/16 at 20:36; Status DC Fentanyl Citrate (Fentanyl 2ml Vial) 100 mcg 1X ONCE EPI ; Start 08/09/16 at 15 :30; Stop 08/09/16 at 15:31; Status DC Ropivacaine/ Fentanyl/NS 100 ml @ 14 mls/hr CONT PRN EP PAIN Last administered on 08/09/16t 19:02; Start 08/09/16 at 15:30 Ondansetron HCl (Zofran) 4 mg PRN Q6HRS PRN IV NAUSEA/VOMITING; Start 08/09/16 at 15:30; Stop 08/09/16 at 20:36; Status DC Ropivacaine (Naropin 0.2%) 20 ml 1X ONCE EPI ; Start 08/09/16 at 15:30; Stop at 15:31; Status DC Terbutaline Sulfate (Brethine) 1 mg STK-MED ONCE .ROUTE ; Start 08/09/16 at 18: 56; Stop 08/09/16 at 18:57; Status DC Misoprostol (Cytotec 200mcg Tab) 200 mcg STK-MED ONCE .ROUTE ; Start 08/09/16 at 19:06; Stop 08/09/16 at 19:07; Status DC Succinylcholine Chloride (Anectine) 200 mg STK-MED ONCE .ROUTE ; Start 08/09/16 at 19:07; Stop 08/09/16 at 19:08; Status DC Chloroprocaine HCl (Nesacaine 3% Mpf) 20 ml STK-MED ONCE .ROUTE ; Start at 19:14; Stop 08/09/16 at 19:15; Status DC Methylergonovine Maleate (Methergine) 0.2 mg STK-MED ONCE IM ; Start 08/09/16 at 19:31; Stop 08/09/16 at 19:32; Status DC Fentanyl Citrate (Fentanyl 2ml Vial) 100 mcg STK-MED ONCE .ROUTE ; Start at 19:35; Stop 08/09/16 at 19:36; Status DC Oxytocin (Pitocin) 10 unit STK-MED ONCE .ROUTE ; Start 08/09/16 at 19:36; Stop 08/09/16 at 19:37; Status DC Cefazolin Sodium 100 ml @ As Directed STK-MED ONCE IV ; Start 08/09/16 at 19:44 ; Stop 08/09/16 at 19:45; Status DC Oxytocin (Pitocin) 10 unit STK-MED ONCE .ROUTE ; Start 08/09/16 at 19:48; Stop 08/09/16 at 19:49; Status DC Oxytocin (Pitocin) 10 unit STK-MED ONCE .ROUTE ; Start 08/09/16 at 19:51; Stop 08/09/16 at 19:52; Status DC Atropine Sulfate 0.5 mg PRN 1X PRN IV SEE COMMENTS; Start 08/09/16 at 20:15; Stop 08/10/16 at 20:14 Naloxone HCl (Narcan) 0.04 mg PRN Q2MIN PRN IV SEE COMMENTS; Start 08/09/16 at 20:15; Stop 08/09/16 at 20:36; Status DC Ondansetron HCl (Zofran) 4 mg STK-MED ONCE .ROUTE ; Start 08/09/16 at 20:14; Stop 08/09/16 at 20:15; Status DC Sodium Chloride (Normal Saline Flush) 3 ml QSHIFT PRN IV AFTER MEDS AND BLOOD DRAWS; Start 08/09/16 at 20:30 Oxytocin/Sodium Chloride 500 ml @ 125 mls/hr CONT PRN IV EXCESSIVE POST- BLEEDING; Start 08/09/16 at 20:30; Stop 08/10/16 at 04:29; Status DC Ibuprofen (Motrin) 800 mg PRN Q8HRS PRN PO INFLAMMATION; Start 08/09/16 at 20: 30; Status Cancel Ondansetron HCl (Zofran) 4 mg PRN Q6HRS PRN IV NAUSEA/VOMITING; Start 08/09/16 at 20:30 Docusate Sodium (Colace) 100 mg PRN BID PRN PO CONSTIPATION; Start 08/09/16 at 20:30 Al Hydroxide/Mg Hydroxide (Mylanta Plus Xs) 30 ml PRN Q4HRS PRN PO HEARTBURN / GAS; Start 08/09/16 at 20:30 Simethicone (Gas-X) 80 mg PRN AFTMEALHC PRN PO GAS / BLOATING; Start 08/09/16 at 20:30 Diphenhydramine HCl (Benadryl Oral Elixir) 12.5 mg PRN Q6HRS PRN PO ITCHING; Start 08/09/16 at 20:30 Ferrous Sulfate (Feosol) 325 mg BIDWMEALS PO ; Start 08/10/16 at 08:00 Zolpidem Tartrate (Ambien) 5 mg PRN QHS PRN PO INSOMNIA, MAY REPEAT X1; Start 08/09/16 at 20:30 Oxycodone/ Acetaminophen (Percocet 5/325) 2 tab PRN Q4HRS PRN PO MODERATE PAIN , SEVERE PAIN; Start 08/09/16 at 20:30 Naloxone HCl (Narcan) 0.4 mg PRN Q2MIN PRN IV SEE INSTRUCTIONS; Start 08/09/16 at 20:30 Hydromorphone HCl 30 ml @ 0 mls/hr CONT PRN PRN IV PROTOCOL Last administered on 08/09/16t 21:44; Start 08/09/16 at 20:30 Potassium Chloride 40 meq/ Ringer's Solution 1,020 ml @ 50 mls/hr [id number] IV Last administered on 08/10/16t 03:05; Start 08/09/16 at 22:00 Magnesium Sulfate 500 ml @ 50 mls/hr Q10H IV Last administered on 08/09/16 21 :55; Start 08/09/16 at 21:00 Methylergonovine Maleate (Methergine) 0.2 mg STK-MED ONCE IM ; Start 08/09/16 at 18:00; Stop 08/10/16 at 08:14; Status DC Misoprostol (Cytotec 200mcg Tab) 800 mcg STK-MED ONCE .ROUTE ; Start 08/09/16 at 18:00; Stop 08/10/16 at 08:14; Status DC Terbutaline Sulfate (Brethine) 1 mg STK-MED ONCE .ROUTE ; Start 08/09/16 at 18: 00; Stop 08/10/16 at 08:14; Status DC Ropivacaine 40 mg STK-MED ONCE .ROUTE ; Start 08/09/16 at 18:00; Stop 08/10/16 at 08:14; Status DC Cefazolin Sodium (Ancef 1gm Ivpb For Omni) 2 gm STK-MED ONCE IV ; Start at 20:00; Stop 08/10/16 at 08:25; Status DC Active Scripts Active Reported Flintstones (Pediatric Multivit Comb No.42) 1 Each Tab.chew 1 Each PO DAILY Proair Hfa Inhaler (Albuterol Sulfate) 8.5 Gm Hfa.aer.ad 1 Puff INH PRN Q6HRS PRN Procardia Xl (Nifedipine) 30 Mg Tab.er.24 30 Mg PO DAILY Exam ABd: soft, mild tenderness, fundus firm Bandage in place and dry. Assessment POD#1 s/p c/s and Preeclampsia. Plan of Care: Continue current Tx, Mgmt (Switch to PO pain meds. Stop magnesium sulfate around 1600. ) NIDIA TSE Jr, MD Aug 10, 2016 11:43
[2016-08-10] MEDS ORDERED: oxyCODONE/APAP 7.5/325 1 TAB TABLET PO PRN (11:45)
[2016-08-10] MEDS: FERROUS SULFATE 325 MG TABLET. PO SCH ×2 (13:03→21:27)
[2016-08-10] MEDS: oxyCODONE/APAP 5/325 1 TAB TABLET PO PRN ×3 (13:04→21:28)
[2016-08-10 16:13] LABS: HEMOGLOBIN 8.4 g/dL (12.0-15.5); RED BLOOD COUNT 3.1 x10^6/uL (3.50-5.40); RED CELL DISTRIBUTION WIDTH 15.1 % (11.5-14.5); WHITE BLOOD COUNT 11.8 x10^3/uL (4.0-11.0)
[2016-08-10] MEDS ORDERED: AMMONIA AROMATIC 15% INHALANT AMPUL. ONE (18:01)
[2016-08-10] MEDS: DOCUSATE SODIUM 100 MG CAPSULE. PO PRN (21:27)
[2016-08-11] MEDS: oxyCODONE/APAP 5/325 1 TAB TABLET PO PRN ×5 (03:41→20:34)
[2016-08-11 04:19] VITALS: BP 140/89
[2016-08-11 04:40] LABS: BASO % 0 % (0-3); EOS % 0 % (0-3); HEMATOCRIT 24.4 % (36.0-47.0); HEMOGLOBIN 8.1 g/dL (12.0-15.5); LYMPH # 1.6 x10^3/uL (1.0-4.8); LYMPH % 15 % (24-48); MEAN CORPUSCULAR HEMOGLOBIN 27 pg (25-35); MEAN CORPUSCULAR HGB CONC 33 g/dL (31-37); MEAN CORPUSCULAR VOLUME 81 fL (79-100); MONO % 8 % (0-9); NEUT % 76 % (31-73); PLATELET COUNT 205 x10^3/uL (140-400); RED BLOOD COUNT 3.02 x10^6/uL (3.50-5.40); RED CELL DISTRIBUTION WIDTH 14.9 % (11.5-14.5)
[2016-08-11 04:52] LABS: ALBUMIN 1.9 g/dL (3.4-5.0); ALBUMIN/GLOBULIN RATIO 0.6 (1.0-1.7); CREATININE 0.4 mg/dL (0.6-1.0); GFR 190.1; POTASSIUM 3.3 mmol/L (3.5-5.1); TOTAL BILIRUBIN 0.2 mg/dL (0.2-1.0); TOTAL PROTEIN 5.3 g/dL (6.4-8.2)
[2016-08-11] MEDS: DOCUSATE SODIUM 100 MG CAPSULE. PO PRN ×2 (08:18→20:34)
[2016-08-11] MEDS: FERROUS SULFATE 325 MG TABLET. PO SCH ×2 (08:18→20:34)
[2016-08-11 12:54] VITALS: BP_SYST 1
--- NOTE | 2016-08-11 13:08 | PDOC ---
OB Progress Note Date of Service 08/11/16 Time of Evaluation 1305 Notes Pt. feeling more anxiety. No headache, N/V, CP or SOB. Pt. passing flatus. Lab Laboratory Tests Test 08/09/16 21:20 08/10/16 04:10 08/10/16 15:55 08/11/16 03:30 White Blood Count 18.2 x10^3/uL (4.0-11.0) 9.6 x10^3/uL (4.0-11.0) 11.8 x10^3/uL (4.0-11.0) 11.0 x10^3/uL (4.0-11.0) Red Blood Count 3.11 x10^6/uL (3.50-5.40) 2.48 x10^6/uL (3.50-5.40) 3.10 x10^6/uL (3.50-5.40) 3.02 x10^6/uL (3.50-5.40) Hemoglobin 7.9 g/dL (12.0-15.5) 6.4 g/dL (12.0-15.5) 8.4 g/dL (12.0-15.5) 8.1 g/dL (12.0-15.5) Hematocrit 24.6 % (36.0-47.0) 19.4 % (36.0-47.0) 25.0 % (36.0-47.0) 24.4 % (36.0-47.0) Mean Corpuscular Volume 79 fL (79-100) 78 fL (79-100) 81 fL (79-100) 81 fL ( 79-100) Mean Corpuscular Hemoglobin 26 pg (25-35) 26 pg (25-35) 27 pg (25-35) 27 pg ( 25-35) Mean Corpuscular Hemoglobin Concent 32 g/dL (31-37) 33 g/dL (31-37) 34 g/dL (31-37) 33 g/dL (31-37) Red Cell Distribution Width 13.8 % (11.5-14.5) 13.8 % (11.5-14.5) 15.1 % (11.5-14.5) 14.9 % (11.5-14.5) Platelet Count 254 x10^3/uL (140-400) 203 x10^3/uL (140-400) 213 x10^3/uL (140-400) 205 x10^3/uL (140-400) Neutrophils (%) (Auto) 77 % (31-73) 76 % (31-73) Lymphocytes (%) (Auto) 16 % (24-48) 15 % (24-48) Monocytes (%) (Auto) 7 % (0-9) 8 % (0-9) Eosinophils (%) (Auto) 0 % (0-3) 0 % (0-3) Basophils (%) (Auto) 0 % (0-3) 0 % (0-3) Neutrophils # (Auto) 7.3 x10^3uL (1.8-7.7) 8.4 x10^3uL (1.8-7.7) Lymphocytes # (Auto) 1.5 x10^3/uL (1.0-4.8) 1.6 x10^3/uL (1.0-4.8) Monocytes # (Auto) 0.7 x10^3/uL (0.0-1.1) 0.9 x10^3/uL (0.0-1.1) Eosinophils # (Auto) 0.0 x10^3/uL (0.0-0.7) 0.0 x10^3/uL (0.0-0.7) Basophils # (Auto) 0.0 x10^3/uL (0.0-0.2) 0.0 x10^3/uL (0.0-0.2) Sodium Level 136 mmol/L (136-145) 142 mmol/L (136-145) Potassium Level 3.3 mmol/L (3.5-5.1) 3.3 mmol/L (3.5-5.1) Chloride Level 102 mmol/L (98-107) 107 mmol/L (98-107) Carbon Dioxide Level 26 mmol/L (21-32) 28 mmol/L (21-32) Anion Gap 8 (6-14) 7 (6-14) Blood Urea Nitrogen 3 mg/dL (7-20) 2 mg/dL (7-20) Creatinine 0.5 mg/dL (0.6-1.0) 0.4 mg/dL (0.6-1.0) Estimated GFR (Cockcroft-Gault) 146.9 190.1 Glucose Level 96 mg/dL (70-99) 90 mg/dL (70-99) Calcium Level 7.0 mg/dL (8.5-10.1) 8.0 mg/dL (8.5-10.1) BUN/Creatinine Ratio 5 (6-20) Total Bilirubin 0.2 mg/dL (0.2-1.0) Aspartate Amino Transf (AST/SGOT) 40 U/L (15-37) Alanine Aminotransferase (ALT/SGPT) 15 U/L (14-59) Alkaline Phosphatase 130 U/L (46-116) Total Protein 5.3 g/dL (6.4-8.2) Albumin 1.9 g/dL (3.4-5.0) Albumin/Globulin Ratio 0.6 (1.0-1.7) Laboratory Tests Test 08/10/16 15:55 08/11/16 03:30 White Blood Count 11.8 x10^3/uL (4.0-11.0) 11.0 x10^3/uL (4.0-11.0) Red Blood Count 3.10 x10^6/uL (3.50-5.40) 3.02 x10^6/uL (3.50-5.40) Hemoglobin 8.4 g/dL (12.0-15.5) 8.1 g/dL (12.0-15.5) Hematocrit 25.0 % (36.0-47.0) 24.4 % (36.0-47.0) Mean Corpuscular Volume 81 fL (79-100) 81 fL (79-100) Mean Corpuscular Hemoglobin 27 pg (25-35) 27 pg (25-35) Mean Corpuscular Hemoglobin Concent 34 g/dL (31-37) 33 g/dL (31-37) Red Cell Distribution Width 15.1 % (11.5-14.5) 14.9 % (11.5-14.5) Platelet Count 213 x10^3/uL (140-400) 205 x10^3/uL (140-400) Neutrophils (%) (Auto) 76 % (31-73) Lymphocytes (%) (Auto) 15 % (24-48) Monocytes (%) (Auto) 8 % (0-9) Eosinophils (%) (Auto) 0 % (0-3) Basophils (%) (Auto) 0 % (0-3) Neutrophils # (Auto) 8.4 x10^3uL (1.8-7.7) Lymphocytes # (Auto) 1.6 x10^3/uL (1.0-4.8) Monocytes # (Auto) 0.9 x10^3/uL (0.0-1.1) Eosinophils # (Auto) 0.0 x10^3/uL (0.0-0.7) Basophils # (Auto) 0.0 x10^3/uL (0.0-0.2) Sodium Level 142 mmol/L (136-145) Potassium Level 3.3 mmol/L (3.5-5.1) Chloride Level 107 mmol/L (98-107) Carbon Dioxide Level 28 mmol/L (21-32) Anion Gap 7 (6-14) Blood Urea Nitrogen 2 mg/dL (7-20) Creatinine 0.4 mg/dL (0.6-1.0) Estimated GFR (Cockcroft-Gault) 190.1 BUN/Creatinine Ratio 5 (6-20) Glucose Level 90 mg/dL (70-99) Calcium Level 8.0 mg/dL (8.5-10.1) Total Bilirubin 0.2 mg/dL (0.2-1.0) Aspartate Amino Transf (AST/SGOT) 40 U/L (15-37) Alanine Aminotransferase (ALT/SGPT) 15 U/L (14-59) Alkaline Phosphatase 130 U/L (46-116) Total Protein 5.3 g/dL (6.4-8.2) Albumin 1.9 g/dL (3.4-5.0) Albumin/Globulin Ratio 0.6 (1.0-1.7) Medications Current Medications Sodium Chloride (Normal Saline Flush) 3 ml QSHIFT PRN IV AFTER MEDS AND BLOOD DRAWS; Start 08/07/16 at 11:00; Stop 08/09/16 at 20:34; Status DC Ringer's Solution 1,000 ml @ 125 mls/hr Q8H IV Last administered on 08/09/16t 09:11; Start 08/07/16 at 10:51; Stop 08/09/16 at 21:17; Status DC Fentanyl Citrate (Fentanyl 2ml Vial) 100 mcg PRN Q30MIN PRN IV Severe pain Last administered on 08/07/16 23:40; Start 08/07/16 at 11:00; Stop 08/09/16 at 20:46; Status DC Acetaminophen (Tylenol) 650 mg PRN Q6HRS PRN PO MILD PAIN / TEMP; Start at 11:00; Stop 08/07/16 at 14:49; Status DC Ondansetron HCl (Zofran) 4 mg PRN Q4HRS PRN IV NAUSEA/VOMITING; Start 08/07/16 at 11:00; Stop 08/09/16 at 20:36; Status DC Al Hydroxide/Mg Hydroxide (Mylanta Plus Xs) 30 ml PRN Q4HRS PRN PO HEARTBURN / GAS; Start 08/07/16 at 11:00; Stop 08/09/16 at 20:35; Status DC Terbutaline Sulfate (Brethine) 0.25 mg 1X PRN PRN SQ SEE COMMENTS; Start at 11:00; Stop 08/08/16 at 10:59; Status DC Lidocaine HCl 30 ml 1X PRN PRN INJ SEE COMMENTS; Start 08/07/16 at 11:00; Stop 08/09/16 at 10:59; Status DC Oxytocin/Sodium Chloride 500 ml @ 0 mls/hr CONT PRN IV SEE I/O RECORD Last administered on 08/08/16 05:55; Start 08/08/16 at 06:00; Stop 08/08/16 at 17:34 ; Status DC Oxytocin/Sodium Chloride 500 ml @ 0 mls/hr CONT PRN PRN IV Post delivery bleeding; Start 08/07/16 at 11:00; Stop 08/10/16 at 15:44; Status DC Dinoprostone (Cervidil) 10 mg 1X ONCE VG Last administered on 08/07/16 12:42 ; Start 08/07/16 at 13:00; Stop 08/07/16 at 13:01; Status DC Hydralazine HCl (Apresoline) 10 mg PRN Q20MIN PRN IVP ELEVATED BP, SEE COMMENTS ; Start 08/07/16 at 11:00 Magnesium Sulfate/ Dextrose 100 ml @ 25 mls/hr 1X ONCE IV ; Start 08/07/16 at 12:15; Stop 08/07/16 at 16:14; Status UNV Magnesium Sulfate/ Dextrose 50 ml @ 25 mls/hr 1X ONCE IV ; Start 08/07/16 at 12 :15; Stop 08/07/16 at 14:14; Status UNV Magnesium Sulfate 500 ml @ 50 mls/hr Q10H IV Last administered on 08/09/16 15 :18; Start 08/07/16 at 12:15; Stop 08/09/16 at 21:17; Status DC Magnesium Sulfate 6 gm/Sodium Chloride 112 ml @ 224 mls/hr 1X ONCE IV Last administered on 08/07/16 12:42; Start 08/07/16 at 12:30; Stop 08/07/16 at 12:59 ; Status DC Acetaminophen (Tylenol) 650 mg PRN Q6HRS PRN PO HEADACHE Last administered on 15:07; Start 08/07/16 at 14:30 Acetaminophen (Tylenol) 1,000 mg PRN Q6HRS PRN PO MILD PAIN / TEMP Last administered on 08/07/16 15:05; Start 08/07/16 at 15:00 Diphenhydramine HCl (Benadryl) 50 mg PRN Q6HRS PRN PO ITCHING Last administered on 08/10/16 15:07; Start 08/07/16 at 19:45 Acetaminophen/ Butalbital/ Caffeine (Fioricet) 2 tab PRN Q6HRS PRN PO MIGRAINE HEADACHE Last administered on 08/09/16 02:03; Start 08/07/16 at 19:45 Butorphanol Tartrate (Stadol) 2 mg PRN Q2HR PRN IV LABOR PAIN Last administered on 08/08/16 01:38; Start 08/08/16 at 01:30; Stop 08/09/16 at 20:46 ; Status DC Dinoprostone (Cervidil) 10 mg 1X ONCE VG Last administered on 08/08/16 19:27 ; Start 08/08/16 at 19:00; Stop 08/08/16 at 19:01; Status DC Oxytocin/Sodium Chloride 500 ml @ 0 mls/hr 1X ONCE IV Last administered on 09:10; Start 08/09/16 at 07:30; Stop 08/09/16 at 07:31; Status DC Potassium Chloride/Sodium Chloride 1,000 ml @ 75 mls/hr 1X ONCE IV ; Start at 13:30; Stop 08/09/16 at 13:34; Status DC Potassium Chloride 40 meq/ Ringer's Solution 1,020 ml @ 75 mls/hr [id number] IV Last administered on 08/09/16 14:00; Start 08/09/16 at 14:00; Stop 08/09/16 at 21:17; Status DC Ropivacaine/ Fentanyl/NS 100 ml @ As Directed STK-MED ONCE EP ; Start 08/09/16 at 14:36; Stop 08/09/16 at 14:37; Status DC Ropivacaine 40 mg STK-MED ONCE .ROUTE ; Start 08/09/16 at 14:37; Stop 08/09/16 at 14:38; Status DC Ephedrine Sulfate 10 mg PRN Q2MIN PRN IV IF SBP<90; Start 08/09/16 at 15:30; Stop 08/10/16 at 15:44; Status DC Naloxone HCl (Narcan) 0.04 mg PRN Q1MIN PRN IV SEE COMMENTS; Start 08/09/16 at 15:30; Stop 08/09/16 at 20:36; Status DC Fentanyl Citrate (Fentanyl 2ml Vial) 100 mcg 1X ONCE EPI ; Start 08/09/16 at 15 :30; Stop 08/09/16 at 15:31; Status DC Ropivacaine/ Fentanyl/NS 100 ml @ 14 mls/hr CONT PRN EP PAIN Last administered on 08/09/16 19:02; Start 08/09/16 at 15:30; Stop 08/10/16 at 15:44 ; Status DC Ondansetron HCl (Zofran) 4 mg PRN Q6HRS PRN IV NAUSEA/VOMITING; Start 08/09/16 at 15:30; Stop 08/09/16 at 20:36; Status DC Ropivacaine (Naropin 0.2%) 20 ml 1X ONCE EPI ; Start 08/09/16 at 15:30; Stop at 15:31; Status DC Terbutaline Sulfate (Brethine) 1 mg STK-MED ONCE .ROUTE ; Start 08/09/16 at 18: 56; Stop 08/10/16 at 15:44; Status DC Misoprostol (Cytotec 200mcg Tab) 200 mcg STK-MED ONCE .ROUTE ; Start 08/09/16 at 19:06; Stop 08/10/16 at 15:44; Status DC Succinylcholine Chloride (Anectine) 200 mg STK-MED ONCE .ROUTE ; Start 08/09/16 at 19:07; Stop 08/10/16 at 15:44; Status DC Chloroprocaine HCl (Nesacaine 3% Mpf) 20 ml STK-MED ONCE .ROUTE ; Start at 19:14; Stop 08/10/16 at 15:44; Status DC Methylergonovine Maleate (Methergine) 0.2 mg STK-MED ONCE IM ; Start 08/09/16 at 19:31; Stop 08/10/16 at 15:44; Status DC Fentanyl Citrate (Fentanyl 2ml Vial) 100 mcg STK-MED ONCE .ROUTE ; Start at 19:35; Stop 08/10/16 at 15:44; Status DC Oxytocin (Pitocin) 10 unit STK-MED ONCE .ROUTE ; Start 08/09/16 at 19:36; Stop 08/10/16 at 15:44; Status DC Cefazolin Sodium 100 ml @ As Directed STK-MED ONCE IV ; Start 08/09/16 at 19:44 ; Stop 08/10/16 at 15:44; Status DC Oxytocin (Pitocin) 10 unit STK-MED ONCE .ROUTE ; Start 08/09/16 at 19:48; Stop 08/10/16 at 15:44; Status DC Oxytocin (Pitocin) 10 unit STK-MED ONCE .ROUTE ; Start 08/09/16 at 19:51; Stop 08/10/16 at 15:44; Status DC Atropine Sulfate 0.5 mg PRN 1X PRN IV SEE COMMENTS; Start 08/09/16 at 20:15; Stop 08/10/16 at 15:44; Status DC Naloxone HCl (Narcan) 0.04 mg PRN Q2MIN PRN IV SEE COMMENTS; Start 08/09/16 at 20:15; Stop 08/09/16 at 20:36; Status DC Ondansetron HCl (Zofran) 4 mg STK-MED ONCE .ROUTE ; Start 08/09/16 at 20:14; Stop 08/10/16 at 15:44; Status DC Sodium Chloride (Normal Saline Flush) 3 ml QSHIFT PRN IV AFTER MEDS AND BLOOD DRAWS; Start 08/09/16 at 20:30 Oxytocin/Sodium Chloride 500 ml @ 125 mls/hr CONT PRN IV EXCESSIVE POST- BLEEDING; Start 08/09/16 at 20:30; Stop 08/10/16 at 04:29; Status DC Ibuprofen (Motrin) 800 mg PRN Q8HRS PRN PO INFLAMMATION; Start 08/09/16 at 20: 30; Status Cancel Ondansetron HCl (Zofran) 4 mg PRN Q6HRS PRN IV NAUSEA/VOMITING; Start 08/09/16 at 20:30 Docusate Sodium (Colace) 100 mg PRN BID PRN PO CONSTIPATION Last administered on 08/11/16 08:18; Start 08/09/16 at 20:30 Al Hydroxide/Mg Hydroxide (Mylanta Plus Xs) 30 ml PRN Q4HRS PRN PO HEARTBURN / GAS; Start 08/09/16 at 20:30 Simethicone (Gas-X) 80 mg PRN AFTMEALHC PRN PO GAS / BLOATING; Start 08/09/16 at 20:30 Diphenhydramine HCl (Benadryl Oral Elixir) 12.5 mg PRN Q6HRS PRN PO ITCHING; Start 08/09/16 at 20:30 Ferrous Sulfate (Feosol) 325 mg BIDWMEALS PO Last administered on 08/11/16 08: 18; Start 08/10/16 at 08:00 Zolpidem Tartrate (Ambien) 5 mg PRN QHS PRN PO INSOMNIA, MAY REPEAT X1; Start 08/09/16 at 20:30 Oxycodone/ Acetaminophen (Percocet 5/325) 2 tab PRN Q4HRS PRN PO MODERATE PAIN , SEVERE PAIN Last administered on 08/11/16 11:59; Start 08/09/16 at 20:30 Naloxone HCl (Narcan) 0.4 mg PRN Q2MIN PRN IV SEE INSTRUCTIONS; Start 08/09/16 at 20:30 Hydromorphone HCl 30 ml @ 0 mls/hr CONT PRN PRN IV PROTOCOL Last administered on 08/09/16t 21:44; Start 08/09/16 at 20:30; Stop 08/10/16 at 15:44; Status DC Potassium Chloride 40 meq/ Ringer's Solution 1,020 ml @ 50 mls/hr [id number] IV Last administered on 08/10/16 03:05; Start 08/09/16 at 22:00 Magnesium Sulfate 500 ml @ 50 mls/hr Q10H IV Last administered on 08/09/16 21 :55; Start 08/09/16 at 21:00 Methylergonovine Maleate (Methergine) 0.2 mg STK-MED ONCE IM ; Start 08/09/16 at 18:00; Stop 08/10/16 at 15:44; Status DC Misoprostol (Cytotec 200mcg Tab) 800 mcg STK-MED ONCE .ROUTE ; Start 08/09/16 at 18:00; Stop 08/10/16 at 15:44; Status DC Terbutaline Sulfate (Brethine) 1 mg STK-MED ONCE .ROUTE ; Start 08/09/16 at 18: 00; Stop 08/10/16 at 15:44; Status DC Ropivacaine 40 mg STK-MED ONCE .ROUTE ; Start 08/09/16 at 18:00; Stop 08/10/16 at 15:45; Status DC Cefazolin Sodium (Ancef 1gm Ivpb For Omni) 2 gm STK-MED ONCE IV ; Start at 20:00; Stop 08/10/16 at 15:45; Status DC Oxycodone/ Acetaminophen (Percocet 7.5/ 325) 1 tab PRN Q4HRS PRN PO PAIN; Start 08/10/16 at 11:45 Ammonia (Aromatic Spirit) (Amoply) 1 each STK-MED ONCE .ROUTE ; Start 08/10/16 at 18:01; Stop 08/10/16 at 18:02; Status DC Active Scripts Active Reported Flintstones (Pediatric Multivit Comb No.42) 1 Each Tab.chew 1 Each PO DAILY Proair Hfa Inhaler (Albuterol Sulfate) 8.5 Gm Hfa.aer.ad 1 Puff INH PRN Q6HRS PRN Procardia Xl (Nifedipine) 30 Mg Tab.er.24 30 Mg PO DAILY Exam Abd: soft, mild tenderness, fundus firm INcision site: clean,dry and intact Assessment POD#2 s/p c/s Preeclampsia: resolving Acute blood loss anemia: transfusion 2 Units PRBC's given; now stable Plan of Care: Continue current Tx, Mgmt NIDIA TSE Jr, MD Aug 11, 2016 13:08
[2016-08-11] MEDS ORDERED: ESCITALOPRAM 10 MG TABLET. PO SCH (14:00)
[2016-08-11 15:04] VITALS: BP 136/92
[2016-08-11 20:30] VITALS: BP 141/93
[2016-08-12] MEDS: oxyCODONE/APAP 5/325 1 TAB TABLET PO PRN ×2 (01:48→08:02)
[2016-08-12 01:50] VITALS: BP 149/90
[2016-08-12 05:55] VITALS: BP 126/96
[2016-08-12 06:40] VITALS: BP 149/99
[2016-08-12] MEDS: DOCUSATE SODIUM 100 MG CAPSULE. PO PRN (08:01)
[2016-08-12] MEDS: FERROUS SULFATE 325 MG TABLET. PO SCH (08:01)
--- NOTE | 2016-08-12 08:29 | PDOC ---
OB Progress Note Date of Service 08/12/16 Time of Evaluation 0825 Notes Pt. feeling well. BP more elevated overnight. Counseled on restarting Procardia XL 30mg daily. Lab Laboratory Tests Test 08/10/16 15:55 08/11/16 03:30 White Blood Count 11.8 x10^3/uL (4.0-11.0) 11.0 x10^3/uL (4.0-11.0) Red Blood Count 3.10 x10^6/uL (3.50-5.40) 3.02 x10^6/uL (3.50-5.40) Hemoglobin 8.4 g/dL (12.0-15.5) 8.1 g/dL (12.0-15.5) Hematocrit 25.0 % (36.0-47.0) 24.4 % (36.0-47.0) Mean Corpuscular Volume 81 fL (79-100) 81 fL (79-100) Mean Corpuscular Hemoglobin 27 pg (25-35) 27 pg (25-35) Mean Corpuscular Hemoglobin Concent 34 g/dL (31-37) 33 g/dL (31-37) Red Cell Distribution Width 15.1 % (11.5-14.5) 14.9 % (11.5-14.5) Platelet Count 213 x10^3/uL (140-400) 205 x10^3/uL (140-400) Neutrophils (%) (Auto) 76 % (31-73) Lymphocytes (%) (Auto) 15 % (24-48) Monocytes (%) (Auto) 8 % (0-9) Eosinophils (%) (Auto) 0 % (0-3) Basophils (%) (Auto) 0 % (0-3) Neutrophils # (Auto) 8.4 x10^3uL (1.8-7.7) Lymphocytes # (Auto) 1.6 x10^3/uL (1.0-4.8) Monocytes # (Auto) 0.9 x10^3/uL (0.0-1.1) Eosinophils # (Auto) 0.0 x10^3/uL (0.0-0.7) Basophils # (Auto) 0.0 x10^3/uL (0.0-0.2) Sodium Level 142 mmol/L (136-145) Potassium Level 3.3 mmol/L (3.5-5.1) Chloride Level 107 mmol/L (98-107) Carbon Dioxide Level 28 mmol/L (21-32) Anion Gap 7 (6-14) Blood Urea Nitrogen 2 mg/dL (7-20) Creatinine 0.4 mg/dL (0.6-1.0) Estimated GFR (Cockcroft-Gault) 190.1 BUN/Creatinine Ratio 5 (6-20) Glucose Level 90 mg/dL (70-99) Calcium Level 8.0 mg/dL (8.5-10.1) Total Bilirubin 0.2 mg/dL (0.2-1.0) Aspartate Amino Transf (AST/SGOT) 40 U/L (15-37) Alanine Aminotransferase (ALT/SGPT) 15 U/L (14-59) Alkaline Phosphatase 130 U/L (46-116) Total Protein 5.3 g/dL (6.4-8.2) Albumin 1.9 g/dL (3.4-5.0) Albumin/Globulin Ratio 0.6 (1.0-1.7) Medications Current Medications Sodium Chloride (Normal Saline Flush) 3 ml QSHIFT PRN IV AFTER MEDS AND BLOOD DRAWS; Start 08/07/16 at 11:00; Stop 08/09/16 at 20:34; Status DC Ringer's Solution 1,000 ml @ 125 mls/hr Q8H IV Last administered on 08/09/16 09:11; Start 08/07/16 at 10:51; Stop 08/09/16 at 21:17; Status DC Fentanyl Citrate (Fentanyl 2ml Vial) 100 mcg PRN Q30MIN PRN IV Severe pain Last administered on 08/07/16t 23:40; Start 08/07/16 at 11:00; Stop 08/09/16 at 20:46; Status DC Acetaminophen (Tylenol) 650 mg PRN Q6HRS PRN PO MILD PAIN / TEMP; Start at 11:00; Stop 08/07/16 at 14:49; Status DC Ondansetron HCl (Zofran) 4 mg PRN Q4HRS PRN IV NAUSEA/VOMITING; Start 08/07/16 at 11:00; Stop 08/09/16 at 20:36; Status DC Al Hydroxide/Mg Hydroxide (Mylanta Plus Xs) 30 ml PRN Q4HRS PRN PO HEARTBURN / GAS; Start 08/07/16 at 11:00; Stop 08/09/16 at 20:35; Status DC Terbutaline Sulfate (Brethine) 0.25 mg 1X PRN PRN SQ SEE COMMENTS; Start at 11:00; Stop 08/08/16 at 10:59; Status DC Lidocaine HCl 30 ml 1X PRN PRN INJ SEE COMMENTS; Start 08/07/16 at 11:00; Stop 08/09/16 at 10:59; Status DC Oxytocin/Sodium Chloride 500 ml @ 0 mls/hr CONT PRN IV SEE I/O RECORD Last administered on 08/08/16 05:55; Start 08/08/16 at 06:00; Stop 08/08/16 at 17:34 ; Status DC Oxytocin/Sodium Chloride 500 ml @ 0 mls/hr CONT PRN PRN IV Post delivery bleeding; Start 08/07/16 at 11:00; Stop 08/10/16 at 15:44; Status DC Dinoprostone (Cervidil) 10 mg 1X ONCE VG Last administered on 08/07/16 12:42 ; Start 08/07/16 at 13:00; Stop 08/07/16 at 13:01; Status DC Hydralazine HCl (Apresoline) 10 mg PRN Q20MIN PRN IVP ELEVATED BP, SEE COMMENTS ; Start 08/07/16 at 11:00 Magnesium Sulfate/ Dextrose 100 ml @ 25 mls/hr 1X ONCE IV ; Start 08/07/16 at 12:15; Stop 08/07/16 at 16:14; Status UNV Magnesium Sulfate/ Dextrose 50 ml @ 25 mls/hr 1X ONCE IV ; Start 08/07/16 at 12 :15; Stop 08/07/16 at 14:14; Status UNV Magnesium Sulfate 500 ml @ 50 mls/hr Q10H IV Last administered on 08/09/16 15 :18; Start 08/07/16 at 12:15; Stop 08/09/16 at 21:17; Status DC Magnesium Sulfate 6 gm/Sodium Chloride 112 ml @ 224 mls/hr 1X ONCE IV Last administered on 08/07/16 12:42; Start 08/07/16 at 12:30; Stop 08/07/16 at 12:59 ; Status DC Acetaminophen (Tylenol) 650 mg PRN Q6HRS PRN PO HEADACHE Last administered on 15:07; Start 08/07/16 at 14:30 Acetaminophen (Tylenol) 1,000 mg PRN Q6HRS PRN PO MILD PAIN / TEMP Last administered on 08/07/16 15:05; Start 08/07/16 at 15:00; Stop 08/11/16 at 19:49 ; Status DC Diphenhydramine HCl (Benadryl) 50 mg PRN Q6HRS PRN PO ITCHING Last administered on 08/10/16 15:07; Start 08/07/16 at 19:45 Acetaminophen/ Butalbital/ Caffeine (Fioricet) 2 tab PRN Q6HRS PRN PO MIGRAINE HEADACHE Last administered on 08/09/16 02:03; Start 08/07/16 at 19:45 Butorphanol Tartrate (Stadol) 2 mg PRN Q2HR PRN IV LABOR PAIN Last administered on 08/08/16 01:38; Start 08/08/16 at 01:30; Stop 08/09/16 at 20:46 ; Status DC Dinoprostone (Cervidil) 10 mg 1X ONCE VG Last administered on 08/08/16 19:27 ; Start 08/08/16 at 19:00; Stop 08/08/16 at 19:01; Status DC Oxytocin/Sodium Chloride 500 ml @ 0 mls/hr 1X ONCE IV Last administered on 09:10; Start 08/09/16 at 07:30; Stop 08/09/16 at 07:31; Status DC Potassium Chloride/Sodium Chloride 1,000 ml @ 75 mls/hr 1X ONCE IV ; Start at 13:30; Stop 08/09/16 at 13:34; Status DC Potassium Chloride 40 meq/ Ringer's Solution 1,020 ml @ 75 mls/hr [id number] IV Last administered on 08/09/16 14:00; Start 08/09/16 at 14:00; Stop 08/09/16 at 21:17; Status DC Ropivacaine/ Fentanyl/NS 100 ml @ As Directed STK-MED ONCE EP ; Start 08/09/16 at 14:36; Stop 08/09/16 at 14:37; Status DC Ropivacaine 40 mg STK-MED ONCE .ROUTE ; Start 08/09/16 at 14:37; Stop 08/09/16 at 14:38; Status DC Ephedrine Sulfate 10 mg PRN Q2MIN PRN IV IF SBP<90; Start 08/09/16 at 15:30; Stop 08/10/16 at 15:44; Status DC Naloxone HCl (Narcan) 0.04 mg PRN Q1MIN PRN IV SEE COMMENTS; Start 08/09/16 at 15:30; Stop 08/09/16 at 20:36; Status DC Fentanyl Citrate (Fentanyl 2ml Vial) 100 mcg 1X ONCE EPI ; Start 08/09/16 at 15 :30; Stop 08/09/16 at 15:31; Status DC Ropivacaine/ Fentanyl/NS 100 ml @ 14 mls/hr CONT PRN EP PAIN Last administered on 08/09/16t 19:02; Start 08/09/16 at 15:30; Stop 08/10/16 at 15:44 ; Status DC Ondansetron HCl (Zofran) 4 mg PRN Q6HRS PRN IV NAUSEA/VOMITING; Start 08/09/16 at 15:30; Stop 08/09/16 at 20:36; Status DC Ropivacaine (Naropin 0.2%) 20 ml 1X ONCE EPI ; Start 08/09/16 at 15:30; Stop at 15:31; Status DC Terbutaline Sulfate (Brethine) 1 mg STK-MED ONCE .ROUTE ; Start 08/09/16 at 18: 56; Stop 08/10/16 at 15:44; Status DC Misoprostol (Cytotec 200mcg Tab) 200 mcg STK-MED ONCE .ROUTE ; Start 08/09/16 at 19:06; Stop 08/10/16 at 15:44; Status DC Succinylcholine Chloride (Anectine) 200 mg STK-MED ONCE .ROUTE ; Start 08/09/16 at 19:07; Stop 08/10/16 at 15:44; Status DC Chloroprocaine HCl (Nesacaine 3% Mpf) 20 ml STK-MED ONCE .ROUTE ; Start at 19:14; Stop 08/10/16 at 15:44; Status DC Methylergonovine Maleate (Methergine) 0.2 mg STK-MED ONCE IM ; Start 08/09/16 at 19:31; Stop 08/10/16 at 15:44; Status DC Fentanyl Citrate (Fentanyl 2ml Vial) 100 mcg STK-MED ONCE .ROUTE ; Start at 19:35; Stop 08/10/16 at 15:44; Status DC Oxytocin (Pitocin) 10 unit STK-MED ONCE .ROUTE ; Start 08/09/16 at 19:36; Stop 08/10/16 at 15:44; Status DC Cefazolin Sodium 100 ml @ As Directed STK-MED ONCE IV ; Start 08/09/16 at 19:44 ; Stop 08/10/16 at 15:44; Status DC Oxytocin (Pitocin) 10 unit STK-MED ONCE .ROUTE ; Start 08/09/16 at 19:48; Stop 08/10/16 at 15:44; Status DC Oxytocin (Pitocin) 10 unit STK-MED ONCE .ROUTE ; Start 08/09/16 at 19:51; Stop 08/10/16 at 15:44; Status DC Atropine Sulfate 0.5 mg PRN 1X PRN IV SEE COMMENTS; Start 08/09/16 at 20:15; Stop 08/10/16 at 15:44; Status DC Naloxone HCl (Narcan) 0.04 mg PRN Q2MIN PRN IV SEE COMMENTS; Start 08/09/16 at 20:15; Stop 08/09/16 at 20:36; Status DC Ondansetron HCl (Zofran) 4 mg STK-MED ONCE .ROUTE ; Start 08/09/16 at 20:14; Stop 08/10/16 at 15:44; Status DC Sodium Chloride (Normal Saline Flush) 3 ml QSHIFT PRN IV AFTER MEDS AND BLOOD DRAWS; Start 08/09/16 at 20:30; Stop 08/11/16 at 19:49; Status DC Oxytocin/Sodium Chloride 500 ml @ 125 mls/hr CONT PRN IV EXCESSIVE POST- BLEEDING; Start 08/09/16 at 20:30; Stop 08/10/16 at 04:29; Status DC Ibuprofen (Motrin) 800 mg PRN Q8HRS PRN PO INFLAMMATION; Start 08/09/16 at 20: 30; Status Cancel Ondansetron HCl (Zofran) 4 mg PRN Q6HRS PRN IV NAUSEA/VOMITING; Start 08/09/16 at 20:30; Stop 08/11/16 at 19:49; Status DC Docusate Sodium (Colace) 100 mg PRN BID PRN PO CONSTIPATION Last administered on 08/12/16 08:01; Start 08/09/16 at 20:30 Al Hydroxide/Mg Hydroxide (Mylanta Plus Xs) 30 ml PRN Q4HRS PRN PO HEARTBURN / GAS; Start 08/09/16 at 20:30 Simethicone (Gas-X) 80 mg PRN AFTMEALHC PRN PO GAS / BLOATING; Start 08/09/16 at 20:30 Diphenhydramine HCl (Benadryl Oral Elixir) 12.5 mg PRN Q6HRS PRN PO ITCHING; Start 08/09/16 at 20:30; Stop 08/11/16 at 19:49; Status DC Ferrous Sulfate (Feosol) 325 mg BIDWMEALS PO Last administered on 08/12/16 08: 01; Start 08/10/16 at 08:00 Zolpidem Tartrate (Ambien) 5 mg PRN QHS PRN PO INSOMNIA, MAY REPEAT X1; Start 08/09/16 at 20:30 Oxycodone/ Acetaminophen (Percocet 5/325) 2 tab PRN Q4HRS PRN PO MODERATE PAIN , SEVERE PAIN Last administered on 08/12/16 08:02; Start 08/09/16 at 20:30 Naloxone HCl (Narcan) 0.4 mg PRN Q2MIN PRN IV SEE INSTRUCTIONS; Start 08/09/16 at 20:30; Stop 08/11/16 at 19:49; Status DC Hydromorphone HCl 30 ml @ 0 mls/hr CONT PRN PRN IV PROTOCOL Last administered on 08/09/16 21:44; Start 08/09/16 at 20:30; Stop 08/10/16 at 15:44; Status DC Potassium Chloride 40 meq/ Ringer's Solution 1,020 ml @ 50 mls/hr [id number] IV Last administered on 08/10/16 03:05; Start 08/09/16 at 22:00; Stop 08/11/16 at 19:50; Status DC Magnesium Sulfate 500 ml @ 50 mls/hr Q10H IV Last administered on 08/09/16t 21 :55; Start 08/09/16 at 21:00; Stop 08/11/16 at 19:50; Status DC Methylergonovine Maleate (Methergine) 0.2 mg STK-MED ONCE IM ; Start 08/09/16 at 18:00; Stop 08/10/16 at 15:44; Status DC Misoprostol (Cytotec 200mcg Tab) 800 mcg STK-MED ONCE .ROUTE ; Start 08/09/16 at 18:00; Stop 08/10/16 at 15:44; Status DC Terbutaline Sulfate (Brethine) 1 mg STK-MED ONCE .ROUTE ; Start 08/09/16 at 18: 00; Stop 08/10/16 at 15:44; Status DC Ropivacaine 40 mg STK-MED ONCE .ROUTE ; Start 08/09/16 at 18:00; Stop 08/10/16 at 15:45; Status DC Cefazolin Sodium (Ancef 1gm Ivpb For Omni) 2 gm STK-MED ONCE IV ; Start at 20:00; Stop 08/10/16 at 15:45; Status DC Oxycodone/ Acetaminophen (Percocet 7.5/ 325) 1 tab PRN Q4HRS PRN PO PAIN; Start 08/10/16 at 11:45 Ammonia (Aromatic Spirit) (Amoply) 1 each STK-MED ONCE .ROUTE ; Start 08/10/16 at 18:01; Stop 08/10/16 at 18:02; Status DC Escitalopram Oxalate (Lexapro) 10 mg DAILY PO Last administered on 08/11/16t 20 :33; Start 08/11/16 at 14:00 Active Scripts Active Reported Flintstones (Pediatric Multivit Comb No.42) 1 Each Tab.chew 1 Each PO DAILY Proair Hfa Inhaler (Albuterol Sulfate) 8.5 Gm Hfa.aer.ad 1 Puff INH PRN Q6HRS PRN Procardia Xl (Nifedipine) 30 Mg Tab.er.24 30 Mg PO DAILY Exam Abd: soft, mild tenderness, fundus firm Incision site: clean, dry and intact Assessment POD#3 s/p c/s Preeclampsia: resolving Acute blood loss anemia: resolving Plan of Care: See new orders (D/c home.) NIDIA TSE Jr, MD Aug 12, 2016 08:29
--- NOTE | 2016-08-12 08:30 | DISCH ---
DISCHARGE INSTRUCTIONS Condition on Discharge Condition on Discharge: Stable Activity After Discharge Activity Instructions for Disc: Avoid exertion, Bedrest today Lifting Instructions after Dis: No heavy lifting Driving Instructions after Dis: No driving for 2 weeks Diet after Discharge Diet after Discharge: Regular Contacting the after DC Call your doctor for: Concerns you may have Follow-Up Follow up with: Dr. Velasquez in 1 week NIDIA VELASQUEZ Jr, MD Aug 12, 2016 08:30
[2016-08-12] MEDS ORDERED: DOCU-109 PO (08:32)
[2016-08-12] MEDS ORDERED: OXYC-323 PO (08:32)
[2016-08-12] MEDS ORDERED: NIFE30TA2 PO (08:32)
[2016-08-12 10:20] VITALS: BP 141/93
[2016-08-12 10:25] VITALS: BP 141/93
--- NOTE | 2016-08-12 15:40 | PATHOLOGY ---
PATHOLOGY REPORT * * * * * * * * FINAL DIAGNOSIS: Placenta "placenta with cord": - section, gestational age approximately 37 weeks. - Placental weight is 680 grams, 90th percentile for gestational age. - Three-vessel umbilical cord centrally located with mild twisting. - Scant retromembranous hematoma. - Mild meconium staining of membrane. - Grossly described abruption measuring 6 x 4 cm. - Recent hemorrhage at the abrupted areas. REPORT ELECTRONICALLY SIGNED BY: Gil Ashford M.D. DATE/TIME: 08/12/2016 15:39 * * * * * * * * GROSS PATHOLOGY: The specimen is received in formalin labeled "Berto-placenta and" is a 26.0 x 19.3 x 2.7 cm roberts placenta with a 15 cm long umbilical cord. The 3 vessel umbilical cord inserts centrally with 2 twists per 5-6 cm. The membranes are bluish durbin with marginal insertion. The point of rupture is unable to be determined. The surface is intact. The maternal surface displays an area of possible minor abruption, measuring 6 x 4 cm located underneath the umbilical cord insertion site. After removal of the membranes and umbilical cord, the placenta weighs 680 g. Sectioning reveals a red beefy unremarkable cut surface. Section code: A1-membranes and umbilical cord, A2-visitor services representative section adjacent to the umbilical cord insertion site, A3-visitor services representative sections of placenta at the possible abrupted areas, A4-additional visitor services representative sections of placenta full thickness. (AKA; 08/11/2016) INITIAL CPT CODE(S): A; 00646 Professional services performed by [facility] at [address] [address] Technical services performed by [facility] at [address] [place] [address], [address], [place] [address]. SPECIMEN(S) RECEIVED: A.Placenta with cord CLINICAL HISTORY: Primary , suspect abruption, , distress 5lb 7oz female @ 1935 on 08/09/16, apgars 7-8, EDC 08/26/16 PATIENT: TARUN THOMPSON /AGE: 7 1985 (Age: 30) PATIENT #: [id number] ALT CASE #: SPECIMEN COLLECTION DATE: 08/09/2016 SPECIMEN RECEIVED DATE: 08/10/2016 [facility] - [id number] [address] - PHONE: [phone] * * * END OF REPORT * * *
== END 2016-08-12 11:00 | disposition home or self-care (01) | DRG 765 ==
LOC: 3 SO LND 10:42
PROVIDERS: ADMIT Obstetrics & Gynecology; ATTEND Obstetrics & Gynecology
PROC: 10D00Z1 Extraction of Products of Conception, Low, Open Approach (ICD-10-PCS; principal; 2016-08-09)
PROC: 3E0P7GC Introduction of Other Therapeutic Substance into Female Reproductive, Via Natural or Artificial Opening (ICD-10-PCS; 2016-08-09)
PROC: 3E033VJ Introduction of Other Hormone into Peripheral Vein, Percutaneous Approach (ICD-10-PCS; 2016-08-09)
PROC: 30233N1 Transfusion of Nonautologous Red Blood Cells into Peripheral Vein, Percutaneous Approach (ICD-10-PCS; 2016-08-09)
PROC: 3E0234Z Introduction of Serum, Toxoid and Vaccine into Muscle, Percutaneous Approach (ICD-10-PCS; 2016-08-09)
DX: O76 Abnormality in fetal heart rate and rhythm complicating labor and delivery (principal); O45.8X3 Other premature separation of placenta, third trimester; D62 Acute posthemorrhagic anemia; O14.94 Unspecified pre-eclampsia, complicating childbirth; O62.2 Other uterine inertia; Z37.0 Single live birth; Z3A.37 37 weeks gestation of pregnancy; O99.02 Anemia complicating childbirth
CPT/HCPCS: 36415; 74000; 80048; 80053; 81003; 83735; 85027; 85461; 86593; 86706; 86762; 86850; 86900; 86901; 86920; 88307; J0330; J0690; J1170; J2210; J2405; J2590; J2791; J2795; J3010; J3105; J3475; J7120; P9016; Q0163

== ENCOUNTER → 2016-09-11 | Outpatient (CLI) | payer OTHER ==
[2016-08-12 10:25] VITALS: BP 141/93
[~2016-09-11] MED LIST changes: +NIFE30TA2 PO; +OXYC-323 PO; +PEDI1TAB6 PO; +PROAIR HFA8.5 GM INH
--- NOTE | 2016-09-11 11:41 | RAD ---
MR of the sacrum without contrast HISTORY: Chronic coccyx pain. History of coccyx fracture. one month ago. No new injury. TECHNIQUE: Routine multiplanar sequences FINDINGS: There is diffuse low T1 marrow signal of the visualized lumbosacral spine. No significant T2 signal abnormality. These findings may be due to red marrow reconversion as can be seen with nonspecific systemic stress. No acute fracture or aggressive bone destruction. The sacrum is intact. Sacroiliac joints are unremarkable. The neural foramina in the sacrum appear patent. Note is made of pseudoarthroses at the lumbosacral junction bilaterally. There is diffuse soft tissue edema anterior to the sacrum extending into the pelvis. There is also intramuscular edema within the piriformis muscles bilaterally symmetric. IMPRESSION: 1. Diffuse soft tissue edema within the presacral tissues and visualized pelvis. Findings suggest nonspecific inflammatory process, correlate clinically, and could be related to recent . 2. Diffuse loss of fatty marrow signal on T1-weighted images throughout the visualized bones, compatible with red marrow reconversion as can be seen with nonspecific systemic stress. Electronically signed by: Maxim Martinez MD (09/11/2016 11:37 AM) [id number]
== END | disposition home or self-care (01) ==
LOC: MRI 13:15
PROVIDERS: ATTEND Nurse Practitioner Family
DX: R10.2 Pelvic and perineal pain (principal); M53.3 Sacrococcygeal disorders, not elsewhere classified
CPT/HCPCS: 72195

== ENCOUNTER 2016-10-01 09:51 | Observation (INO) | payer OTHER ==
[~2016-10-01] VITALS: Ht 160 cm; Wt 93.4 kg
[~2016-10-01 09:51] MED LIST changes: +CHOL500016 PO; +CLINDAMYCIN 900MG PREMIX 50 ML IV PRN; +FERR-26 PO; +HYDR25TA9 PO; +IV RINGERS,LACTATED 1000ML 1,000 ML IV SCH; +LIDOCAINE 1% 1 ML SYRINGE. ID PRN; +NIFE60TA16 PO; +ONDANSETRON PF 4 MG/2 ML VIAL. IV PRN; +PROCHLORPERAZINE 10 MG/2 ML VIAL. IV PRN; +SERT50TA PO; +fentaNYL PF VIAL 100 MCG/2 ML VIAL IV PRN
[2016-10-01] MEDS ORDERED: BUPIVAC MPF-EPI 0.5%-1:200000 30 ML VIAL. ONE (10:06)
[2016-10-01] MEDS ORDERED: ESTROGENS, CONJ VAGINAL CREAM 30GM TUBE. ONE (10:06)
[2016-10-01] MEDS ORDERED: PROPOFOL 20 ML IV ONE ×2 (10:09→11:54)
[2016-10-01] MEDS ORDERED: LIDOCAINE 2% PF Vial for OR 5 ML VIAL. ONE (10:09)
[2016-10-01] MEDS ORDERED: ONDANSETRON PF 4 MG/2 ML VIAL. ONE (10:09)
[2016-10-01] MEDS ORDERED: MIDAZOLAM HCL/PF 2 MG/2 ML VIAL. ONE (10:09)
[2016-10-01] MEDS ORDERED: ROCURONIUM 100 MG/10 ML VIAL. ONE (10:09)
[2016-10-01] MEDS ORDERED: DEXAMETHASONE SOD PHOS 20 MG/5 ML VIAL. ONE (10:09)
[2016-10-01] MEDS ORDERED: fentaNYL PF VIAL 100 MCG/2 ML VIAL ONE ×4 (10:09→13:52)
[2016-10-01] MEDS ORDERED: BUPIVAC MPF-EPI 0.5%-1:200000 30 ML VIAL. INJ ONE (11:27)
[2016-10-01] MEDS ORDERED: NEOSTIGMINE 10 MG/10 ML VIAL. ONE (11:53)
[2016-10-01] MEDS ORDERED: GLYCOPYRROLATE 1 MG/5 ML VIAL. ONE (11:53)
[2016-10-01 12:07] LABS: NEG OBC UR NEG; POS OBC UR POS
[2016-10-01] MEDS ORDERED: PROCHLORPERAZINE 10 MG/2 ML VIAL. ONE (13:06)
--- NOTE | 2016-10-01 13:07 | PDOC ---
BRIEF OPERATIVE NOTE Pre-Op Diagnosis AUB Post-Op Diagnosis SAme Procedure Performed [facility] Surgeon Dr. Velasquez Elevator Pilot Jill Anesthesia Type: General Blood Loss 200 ml Specimens Obtained uterus and cervix Findings enlarged uterus; nml fallopian tubes and ovaries adithya. Complications none NIDIA VELASQUEZ Jr, MD Oct 01, 2016 13:07
[2016-10-01] MEDS ORDERED: ONDANSETRON PF 4 MG/2 ML VIAL. IV PRN (13:15)
[2016-10-01] MEDS ORDERED: PROCHLORPERAZINE 10 MG/2 ML VIAL. IV PRN (13:15)
[2016-10-01] MEDS ORDERED: CALCIUM CARBONATE 500 MG TAB.CHEW PO PRN (13:15)
[2016-10-01] MEDS ORDERED: diphenhydrAMINE HCL 25 MG CAPSULE PO PRN (13:15)
[2016-10-01] MEDS ORDERED: 0.9 % SODIUM CHLORIDE 10 ML DISP.SYRIN. IV PRN (13:15)
[2016-10-01] MEDS ORDERED: SIMETHICONE 80 MG TAB.CHEW PO PRN (13:15)
[2016-10-01] MEDS ORDERED: DEXTROSE 50% 25 GM / 50ML DISP.SYRIN. IV PRN (13:15)
[2016-10-01] MEDS ORDERED: ZOLPIDEM 5 MG TABLET. PO PRN (13:15)
[2016-10-01] MEDS ORDERED: diphenhydrAMINE 50 MG/ML VIAL IV PRN (13:15)
[2016-10-01] MEDS: fentaNYL PF VIAL 100 MCG/2 ML VIAL IV PRN ×4 (13:38→14:11)
[2016-10-01 14:41] VITALS: BP 113/68
[2016-10-01 15:28] VITALS: BP 104/67
[2016-10-01 16:12] VITALS: BP 112/66
--- NOTE | 2016-10-01 17:29 | OP ---
DATE OF SURGERY: 10/01/2016 PREOPERATIVE DIAGNOSIS: Abnormal uterine bleeding. POSTOPERATIVE DIAGNOSIS: Abnormal uterine bleeding. PROCEDURE: LAVH. SURGEON: Nidia Velasquez MD FREIGHT AIR BRAKE FITTER: Jill, ANESTHESIA: GETA. ESTIMATED BLOOD LOSS: 700 mL. COMPLICATIONS: None. FINDINGS: Enlarged uterus, normal fallopian tubes, and ovaries bilaterally. SUMMARY: A 31-year-old female, unresponsive to any medical treatment for abnormal uterine bleeding desire hysterectomy. The patient was counseled on risks, benefits, and expectations and voiced clear understanding to proceed. DESCRIPTION OF PROCEDURE: The patient was taken to surgery suite and placed in dorsal lithotomy position. She was prepped with Betadine solution for vaginal prep and ChloraPrep for abdominal prep. After adequate anesthesia, bivalve speculum was placed vaginally. The anterior lip of the cervix grasped with a single tooth tenaculum. The Valtchev uterine manipulator was then placed. The bivalve speculum was removed. Attention was now placed on abdomen. A small transverse skin incision was made just below the umbilicus with a scalpel. The Veress needle was then placed through the infraumbilical incision site. The abdomen was allowed to insufflate up to 1.5 to 2 liters CO2 gas. The Veress needle was then removed, 5 mm trocar was placed. The scope was positioned. The uterus appeared mildly enlarged. The fallopian tubes and ovaries appeared normal bilaterally. There were adhesions to the lower uterine segment throughout the fundal region of the uterus to the omentum. Two incisions were made in the left lower quadrant with a scalpel in which 5 mm trocars were placed. With the aid of graspers and EnSeal device, the abdominal wall adhesions were removed. The right round ligament was coagulated and dissected. The right utero-ovarian pedicle was coagulated and dissected. The right broad ligament down to the uterine artery was coagulated and dissected. Same process took place for the left adnexa. Bladder flap was created using blunt dissection along with the vessel sealer. Attention was now placed vaginally. Weighted speculum and curved Aidan placed vaginally. The single tooth tenaculum and the Valtchev uterine manipulator was then removed. Sin clamps were placed on the anterior and posterior lip of the cervix. Cervix was injected with 0.5% Marcaine with epinephrine in a circumferential manner. Bovie cautery was utilized to circumscribe the cervix. The vaginal mucosa was dissected away from the lower uterine segment using a moist Ray-Brittney. The anterior cul-de-sac was entered bluntly using index finger. Curved La Rose retractor was repositioned. Posterior cul-de-sac was entered sharply with curved Up scissors. The long weighted speculum was placed. Uterosacral ligaments and cardinal ligaments were clamped bilaterally, cut and suture ligated. The cervix, uterus then removed. A modified Walls's culdoplasty was performed incorporating the uterosacral ligaments bilaterally. The vaginal mucosa was reapproximated using 2-0 Vicryl suture in a [id number] manner. Moist vaginal packing was then placed. Attention was again placed on the abdomen. Abdomen was allowed to insufflate with 1-1/2 liters CO2 gas. The scope was positioned. There was some mild bleeding near the peritoneum, the posterior cul-de-sac, in which Marcel as well as 15 mL of FloSeal was placed for hemostasis. The other pedicles were all hemostatic. A MERLIN drain was also placed due to the peritoneal oozing. This was exited through the left lower quadrant port and tied to the skin with silk suture. The trocars were then removed under direct visualization. The abdomen was allowed to deflate as much as possible along with mechanical manipulation. The three skin incisions were reapproximated at the skin level using 4-0 Vicryl suture in subcuticular manner. Marcaine 0.5% with epinephrine was injected at each incision site. The patient tolerated the procedure well and was taken to recovery room in stable condition. Sponge and needle count correct x 3correct x 3. NIDIA VELASQUEZ MD DR: RAUL/edilberto JOB#: [id number] / [id number]
[2016-10-01] MEDS: GABAPENTIN 300 MG CAPSULE. PO SCH ×2 (17:40→21:58)
[2016-10-01] MEDS: oxyCODONE/APAP 7.5/325 1 TAB TABLET PO PRN ×2 (17:40→20:03)
[2016-10-01 19:00] VITALS: BP 123/74
[2016-10-01] MEDS: oxyCODONE/APAP 5/325 1 TAB TABLET PO PRN (21:58)
[2016-10-01 23:00] VITALS: BP 110/61
[2016-10-02] MEDS: oxyCODONE/APAP 5/325 1 TAB TABLET PO PRN ×3 (03:26→13:09)
[2016-10-02 06:28] VITALS: BP 96/48
[2016-10-02 08:09] LABS: BASO % 1 % (0-3); EOS % 0 % (0-3); HEMATOCRIT 25.5 % (36.0-47.0); HEMOGLOBIN 8.4 g/dL (12.0-15.5); LYMPH # 2.2 x10^3/uL (1.0-4.8); LYMPH % 30 % (24-48); MEAN CORPUSCULAR HEMOGLOBIN 28 pg (25-35); MEAN CORPUSCULAR HGB CONC 33 g/dL (31-37); MEAN CORPUSCULAR VOLUME 85 fL (79-100); MONO % 11 % (0-9); NEUT % 59 % (31-73); PLATELET COUNT 248 x10^3/uL (140-400); RED BLOOD COUNT 3.01 x10^6/uL (3.50-5.40); RED CELL DISTRIBUTION WIDTH 16.1 % (11.5-14.5); WHITE BLOOD COUNT 7.3 x10^3/uL (4.0-11.0)
[2016-10-02 08:20] VITALS: BP 119/81
[2016-10-02] MEDS: GABAPENTIN 300 MG CAPSULE. PO SCH (08:22)
[2016-10-02 14:13] VITALS: BP 113/75
[2016-10-02 15:00] VITALS: BP 128/67
--- NOTE | 2016-10-02 15:03 | PDOC ---
SURGICAL PROGRESS NOTE Subjective Pt. feeling well. Pain controlled. Pt. tolerating regular diet, ambulating and voiding without difficulty. Vital Signs Vital Signs Date Time Temp Pulse Resp B/P (MAP) Pulse Ox O2 Delivery O2 Flow Rate FiO2 10/02/16 14:13 98.4 89 18 113/75 (88) Room Air 98.4 10/02/16 13:09 97 10/02/16 08:20 2.0 I&O Intake and Output 10/02/16 07:00 Intake Total 340 ml Output Total 2780 ml Balance -2440 ml Intake Oral 290 ml IV Total 50 ml Output Urine Total 2420 ml Drainage Total 360 ml # Voids 1 PATIENT HAS A PA: No General: Alert, Oriented X3, Cooperative HEENT: Atraumatic Lungs: Clear to auscultation Heart: Regular rate Abdomen: Normal bowel sounds, Soft, No tenderness, No masses Psych/Mental Status: Mental status NL Labs Laboratory Tests Test 10/01/16 10:15 10/02/16 07:10 Urine Test Negative (NEG) White Blood Count 7.3 x10^3/uL (4.0-11.0) Red Blood Count 3.01 x10^6/uL (3.50-5.40) Hemoglobin 8.4 g/dL (12.0-15.5) Hematocrit 25.5 % (36.0-47.0) Mean Corpuscular Volume 85 fL (79-100) Mean Corpuscular Hemoglobin 28 pg (25-35) Mean Corpuscular Hemoglobin Concent 33 g/dL (31-37) Red Cell Distribution Width 16.1 % (11.5-14.5) Platelet Count 248 x10^3/uL (140-400) Neutrophils (%) (Auto) 59 % (31-73) Lymphocytes (%) (Auto) 30 % (24-48) Monocytes (%) (Auto) 11 % (0-9) Eosinophils (%) (Auto) 0 % (0-3) Basophils (%) (Auto) 1 % (0-3) Neutrophils # (Auto) 4.3 x10^3uL (1.8-7.7) Lymphocytes # (Auto) 2.2 x10^3/uL (1.0-4.8) Monocytes # (Auto) 0.8 x10^3/uL (0.0-1.1) Eosinophils # (Auto) 0.0 x10^3/uL (0.0-0.7) Basophils # (Auto) 0.0 x10^3/uL (0.0-0.2) Laboratory Tests Test 10/02/16 07:10 White Blood Count 7.3 x10^3/uL (4.0-11.0) Red Blood Count 3.01 x10^6/uL (3.50-5.40) Hemoglobin 8.4 g/dL (12.0-15.5) Hematocrit 25.5 % (36.0-47.0) Mean Corpuscular Volume 85 fL (79-100) Mean Corpuscular Hemoglobin 28 pg (25-35) Mean Corpuscular Hemoglobin Concent 33 g/dL (31-37) Red Cell Distribution Width 16.1 % (11.5-14.5) Platelet Count 248 x10^3/uL (140-400) Neutrophils (%) (Auto) 59 % (31-73) Lymphocytes (%) (Auto) 30 % (24-48) Monocytes (%) (Auto) 11 % (0-9) Eosinophils (%) (Auto) 0 % (0-3) Basophils (%) (Auto) 1 % (0-3) Neutrophils # (Auto) 4.3 x10^3uL (1.8-7.7) Lymphocytes # (Auto) 2.2 x10^3/uL (1.0-4.8) Monocytes # (Auto) 0.8 x10^3/uL (0.0-1.1) Eosinophils # (Auto) 0.0 x10^3/uL (0.0-0.7) Basophils # (Auto) 0.0 x10^3/uL (0.0-0.2) Assessment/Plan POD# 1 s/p [facility] P: D/c home. Problems: NIDIA TSE Jr, MD Oct 02, 2016 15:03
[2016-10-02] MEDS ORDERED: OXYC-323 PO (15:04)
--- NOTE | 2016-10-02 15:04 | DISCH ---
DISCHARGE INSTRUCTIONS Condition on Discharge Condition on Discharge: Stable Activity After Discharge Activity Instructions for Disc: Activity as tolerated Lifting Instructions after Dis: No heavy lifting Driving Instructions after Dis: Do not drive today Diet after Discharge Diet after Discharge: Regular Contacting the after DC Call your doctor for: Concerns you may have Follow-Up Follow up with: Dr. Evans in 1 week for drain removal. NIDIA EVANS Jr, MD Oct 02, 2016 15:03
--- NOTE | 2016-10-06 14:00 | PATHOLOGY ---
PATHOLOGY REPORT * * * * * * * * FINAL DIAGNOSIS: Uterus, laparoscopic-assisted vaginal hysterectomy: - Focal myometrial necrosis and sclerosis with associated foreign body granulomatous and suture granulomatous reaction of anterior uterine corpus consistent with previous caesarean section. - Uterine serosal hemorrhage and focal foreign body granulomatous reaction. - Placental implantation site changes. - Chronic endometritis. COMMENT: There is no evidence of malignancy. (JPM:mgr; 10/05/2016) REPORT ELECTRONICALLY SIGNED BY: Kalpesh Zheng M.D. DATE/TIME: 10/06/2016 14:00 * * * * * * * * GROSS PATHOLOGY: The specimen is received in formalin labeled "Tarun Thomson, uterus, cervix". Received is a 9.8 x 6.5 x 3.4 cm113.4 g uterus with attached cervix. The uterine serosa is pink christie and smooth with focal areas of dark reddish brown discoloration of the anterior serosal surface of the lower uterine segment. The 1.3 cm cervical os is surrounded by pale yellow christie ectocervical mucosa. The uterus is oriented using the peritoneal reflection and the anterior paracervical margin is inked black. The uterus is opened laterally to reveal a yellow christie, corrugated endocervical canal measuring 3.3 cm in length. The endometrial cavity is roughly triangular in shape measuring 3.7 cm in length by 2.7 cm in width. The endometrium is thickened, granular, shaggy and irregular in appearance and measures 0.8 in thickness. Serial sectioning reveals a pink christie trabeculated myometrium measuring 1.7 cm in thickness. There are focal irregular areas of durbin white myometrium beneath the endometrium. Starch Crab sections are submitted as follows: A1- anterior cervix A2- posterior cervix A3- anterior serosa A4-A7- anterior endomyometrium A8-A10- posterior endomyometrium (JPM; 10/02/16) INITIAL CPT CODE(S): A; 43136 Professional services performed by [facility] at [address] [address] Technical services performed by [facility] at [address] [place] [address], [address], [place] [address]. SPECIMEN(S) RECEIVED: A.Uterus, cervix CLINICAL HISTORY: AUB PATIENT: TARUN THOMSON Justyn /AGE: 7 1985 (Age: 31) PATIENT #: [id number] ALT CASE #: SPECIMEN COLLECTION DATE: 10/01/2016 SPECIMEN RECEIVED DATE: 10/02/2016 [facility] - [address] [place] [address] - PHONE: [phone] * * * END OF REPORT * * *
== END 2016-10-02 15:40 | disposition home or self-care (01) ==
LOC: SURG 09:51 → 3 NORTH 13:07
PROVIDERS: ADMIT Obstetrics & Gynecology; ATTEND Obstetrics & Gynecology
DX: N93.9 Abnormal uterine and vaginal bleeding, unspecified (principal); N85.2 Hypertrophy of uterus; K66.0 Peritoneal adhesions (postprocedural) (postinfection)
CPT/HCPCS: 36415; 57268; 58550; 81025; 85027; 86850; 86870; 86900; 86901; 88307; A4215; G0378; G0379; J1100; J2250; J2405; J2704; J2710; J3010; J3490; J7030; J7120; J0780; J2001

== ENCOUNTER 2016-10-07 09:17 | Observation (INO) | payer OTHER ==
[~2016-10-07] VITALS: Ht 160 cm; Wt 95.3 kg
[~2016-10-07 09:17] MED LIST changes: -CLINDAMYCIN 900MG PREMIX 50 ML IV PRN; -IV RINGERS,LACTATED 1000ML 1,000 ML IV SCH; -LIDOCAINE 1% 1 ML SYRINGE. ID PRN; -ONDANSETRON PF 4 MG/2 ML VIAL. IV PRN; -PROCHLORPERAZINE 10 MG/2 ML VIAL. IV PRN; -fentaNYL PF VIAL 100 MCG/2 ML VIAL IV PRN
--- NOTE | 2016-10-07 09:42 | PHYS DOC ---
Past Medical History Past Medical History: Anxiety, Asthma, Hypertension, Other Additional Past Medical Histor: POST-PARDUM Past Surgical History: Cholecystectomy, Hysterectomy, Tonsillectomy, Other Additional Past Surgical Histo: HERNIA REPAIR, WISDOM TEETH Alcohol Use: Occasionally Drug Use: None Adult General Chief Complaint Chief Complaint: ABDOMINAL PAIN HPI HPI Patient is a 31 year old female with history of anxiety, hypertension, who presents today complaining of a fever and generalized abdominal pain as well as increased vaginal bleeding that began yesterday. Patient states she had a hysterectomy done on October 01, [address] Velasquez. She states she followed up yesterday and had the drain removed. She states this morning she noted an increased in her vaginal bleeding. She has used two feminine pads since last night. Patient denies any nausea vomiting. Review of Systems Review of Systems Constitutional: fever Eyes: Denies change in visual acuity, redness, or eye pain [] HENT: Denies nasal congestion or sore throat [] Respiratory: Denies cough or shortness of breath [] Cardiovascular: No additional information not addressed in HPI [] GI: generalized abdominal pain, vaginal bleeding : Denies dysuria or hematuria [] Musculoskeletal: Denies back pain or joint pain [] Integument: Denies rash or skin lesions [] Neurologic: Denies headache, focal weakness or sensory changes [] Endocrine: Denies polyuria or polydipsia [] Current Medications Current Medications Current Medications Medications (Trade) Dose Ordered Sig/[facility] Start Time Stop Time Status Last Admin Dose Admin Acetaminophen (Tylenol) 1,000 mg 1X ONCE 10/07/16 09:45 10/07/16 09:46 DC 10/07/16 10:17 1,000 MG Hydromorphone HCl (Dilaudid) 1 mg 1X ONCE 10/07/16 13:45 10/07/16 13:46 DC 10/07/16 13:57 1 MG Info (Do NOT chart on this entry -- for MONITORING) 1 each PRN DAILY PRN 10/07/16 10:00 10/09/16 09:59 Iohexol (Omnipaque 300 Mg/ml) 75 ml 1X ONCE 10/07/16 10:00 10/07/16 10:01 DC 10/07/16 10:34 75 ML Morphine Sulfate 5 mg 1X ONCE 10/07/16 12:45 10/07/16 12:46 DC 10/07/16 12:46 5 MG Sodium Chloride 500 ml @ 1,000 mls/hr PRN Q30MIN PRN 10/07/16 09:45 Allergies Allergies Allergies Coded Allergies Type Severity Reaction Last Updated Verified cephalexin Allergy Severe TURN BLUE 10/01/16 Yes coconut Allergy Intermediate hives 10/01/16 Yes ibuprofen Allergy Intermediate ASTHMA 10/01/16 Yes mushroom Allergy Intermediate hives 10/01/16 Yes tramadol Allergy Intermediate Hives 08/09/16 Yes Physical Exam Physical Exam Constitutional: Well developed, well nourished, no acute distress, non-toxic appearance. [] HENT: Normocephalic, atraumatic, bilateral external ears normal, oropharynx moist, no oral exudates, nose normal. [] Eyes: PERRLA, EOMI, conjunctiva normal, no discharge. [] Neck: Normal range of motion, no tenderness, supple, no stridor. [] Cardiovascular:Heart rate regular rhythm, no murmur [] Lungs & Thorax: Bilateral breath sounds clear to auscultation [] Abdomen: Abdomen with wide approximated laparoscopic incision consistent with laparoscopy hysterectomy with incisional tenderness, no signs of infection on the incision sites. Bowel sounds normal, soft, no tenderness, no masses, no pulsatile masses. [] Skin: Warm, dry, no erythema, no rash. [] Back: No tenderness, no CVA tenderness. [] Extremities: No tenderness, no cyanosis, no clubbing, ROM intact, no edema. [] Neurologic: Alert and oriented X 3, normal motor function, normal sensory function, no focal deficits noted. [] Psychologic: Affect normal, judgement normal, mood normal. [] Current Patient Data Vital Signs Vital Signs Date Time Temp Pulse Resp B/P (MAP) Pulse Ox O2 Delivery O2 Flow Rate FiO2 10/07/16 14:26 94 19 136/77 (96) 99 Room Air 10/07/16 09:28 99.2 99.2 Lab Values Laboratory Tests Test 10/07/16 09:45 10/07/16 10:50 White Blood Count 8.3 x10^3/uL (4.0-11.0) Red Blood Count 3.53 x10^6/uL (3.50-5.40) Hemoglobin 9.7 g/dL (12.0-15.5) L Hematocrit 29.4 % (36.0-47.0) L Mean Corpuscular Volume 83 fL (79-100) Mean Corpuscular Hemoglobin 28 pg (25-35) Mean Corpuscular Hemoglobin Concent 33 g/dL (31-37) Red Cell Distribution Width 17.1 % (11.5-14.5) H Platelet Count 284 x10^3/uL (140-400) Neutrophils (%) (Auto) 70 % (31-73) Lymphocytes (%) (Auto) 17 % (24-48) L Monocytes (%) (Auto) 9 % (0-9) Eosinophils (%) (Auto) 3 % (0-3) Basophils (%) (Auto) 1 % (0-3) Neutrophils # (Auto) 5.8 x10^3uL (1.8-7.7) Lymphocytes # (Auto) 1.4 x10^3/uL (1.0-4.8) Monocytes # (Auto) 0.8 x10^3/uL (0.0-1.1) Eosinophils # (Auto) 0.3 x10^3/uL (0.0-0.7) Basophils # (Auto) 0.1 x10^3/uL (0.0-0.2) Prothrombin Time 12.6 SEC (11.7-14.0) Prothrombin Time INR 1.0 (0.8-1.1) PTT 25 SEC (24-38) Sodium Level 139 mmol/L (136-145) Potassium Level 3.4 mmol/L (3.5-5.1) L Chloride Level 100 mmol/L (98-107) Carbon Dioxide Level 31 mmol/L (21-32) Anion Gap 8 (6-14) Blood Urea Nitrogen 5 mg/dL (7-20) L Creatinine 0.6 mg/dL (0.6-1.0) Estimated GFR (Cockcroft-Gault) 118.2 BUN/Creatinine Ratio 8 (6-20) Glucose Level 106 mg/dL (70-99) H Lactic Acid Level 0.7 mmol/L (0.4-2.0) Calcium Level 9.3 mg/dL (8.5-10.1) Total Bilirubin 0.4 mg/dL (0.2-1.0) Aspartate Amino Transferase (AST) 62 U/L (15-37) H Alanine Aminotransferase (ALT) 163 U/L (14-59) H Alkaline Phosphatase 159 U/L (46-116) H Total Protein 7.7 g/dL (6.4-8.2) Albumin 3.7 g/dL (3.4-5.0) Albumin/Globulin Ratio 0.9 (1.0-1.7) L Lipase 84 U/L (73-393) Procalcitonin < 0.10 ng/mL (0.00-0.10) Urine Collection Type Unknown Urine Color Red Urine Clarity Clear Urine pH 7.0 Urine Specific Valders 1.015 Urine Protein 30 mg/dL (NEG-TRACE) Urine Glucose (UA) Negative mg/dL (NEG) Urine Ketones (Stick) Negative mg/dL (NEG) Urine Blood Large (NEG) Urine Nitrite Negative (NEG) Urine Bilirubin Negative (NEG) Urine Urobilinogen Dipstick 0.2 mg/dL (0.2 mg/dL) Urine Leukocyte Esterase Small (NEG) Urine RBC Tntc /HPF (0-2) Urine WBC 1-4 /HPF (0-4) Urine Squamous Epithelial Cells Mod /LPF Urine Bacteria Few /HPF (0-FEW) Urine Mucus Slight /LPF Laboratory Tests 10/07/16 09:45 Laboratory Tests 10/07/16 09:45 EKG EKG [] Radiology/Procedures Radiology/Procedures []PROCEDURE: CT ABD PELV W/ IV CONTRST ONLY CT abdomen/pelvis with contrast 10/07/2016 at 1036 hours Indication: Status post hysterectomy with abdominal pain and bleeding. Comparison: Pelvis MRI 09/11/2016 Technique: Multiple axial CT images of the abdomen and pelvis were obtained after the intravenous administration of 74 mL Omnipaque 300. Findings: Visualized portions of the lung bases are clear. Heart size is within normal limits. Liver is homogeneous without evidence for a focal mass lesion. Spleen is borderline in size measuring 14.5 cm in AP dimension. Pancreas is within normal limits. Adrenal glands are within normal limits. Gallbladder is surgically absent. Abdominal aorta is normal in course and caliber. There are no enlarged lymph nodes in the abdomen. There is a left external iliac lymph node measuring 6.6 mm by short axis (series 3, image 68). The kidneys enhance symmetrically. No hydronephrosis. No suspicious renal mass. Ureters and urinary bladder are within normal limits. The uterus is surgically absent. In the postsurgical bed, there is a gas containing collection measuring 7.6 x 6.0 x 5.4 cm (AP by transverse by craniocaudal). There is moderate free fluid within the pelvis. Additionally, superiorly and anteriorly to this collection, there is a 5.0 x 5.0 cm complex cystic area which is inseparable from the postsurgical bed, however has the appearance of an ovary. The sigmoid colon is separate from this collection and normal in appearance. Normal appendix is visualized. Impression: 1. Complex gas containing collection in the postsurgical bed measuring approximately 7.6 x 6.0 x 5.4 cm. Findings could represent sequela of postsurgical changes, however in the setting of fever and pelvic pain consideration should be given to abscess formation. Recommend correlation with type of surgery performed as well as chronicity of symptoms. 2. There is a 5.0 x 5.0 cm complex cystic mass in the left adnexa which appears inseparable from the gas containing collection described above, however has morphology suggestive of the left ovary. Correlation for surgical removal of the left ovary. If the left ovary remains, this may represent an enlarged left ovary as may be seen in the setting of ovarian torsion and transabdominal pelvic ultrasound is recommended for further evaluation. Critical findings were discussed with Dr. Tovar at 12:15 PM on 10/07/2016 PQRS Compliance Statement: One or more of the following individualized dose reduction techniques were utilized for this examination: 1. Automated exposure control 2. Adjustment of the mA and/or kV according to patient size 3. Use of iterative reconstruction technique DICTATED and SIGNED BY: JAZZMINE DIETRICH MD DATE: 10/07/16 1206 CC: KIM SEGAL APRN; NON,STAFF; [facility] ~ Course & Med Decision Making Course & Med Decision Making Pertinent Labs and Imaging studies reviewed. (See chart for details) This is a 31-year-old female patient who presents to the ED today complaining of fever,generalized abdominal pain and increased vaginal bleeding since yesterday she is status post-hysterectomy on October 01, 2016 done by . Patient had drains removed yesterday. Temperature was 99.2 with a heart rate of 102 on arrival to the ED. She was started on the sepsis protocol. CBC with normal WBC, lactic is normal, hemoglobin 9.7, hematocrit 29.4. CMP with AST 62, ALT 163, alkaline phosphate of 159. Urine analysis with no acute findings. CT of the abdomen and pelvic results were noted for complex gas containing collection in postsurgical bed measuring 7.6 x 6.0 x 5.4 cm. Radiologist states findings could represent sequela of postsurgical changes however in the setting of fever and pelvic pain consideration should be given to abscess formation. Radiologist also mentioned patient has a 5 x 5 complex cystic mass in the left adnexa which appears inseparable from the gas containing collection described above however has morphology suggesting of the left ovary. Correlation for surgical removal of left ovary. Patient still has all her ovaries. Radiologist is concerned of a possible torsed ovary. Pelvic ultrasound was ordered. 14:[address] Penaloza he was accepted patient for admission. He requested patient to be admitted with orders for Motrin and Tylenol for pain regular diet. Patient could not be given ibuprofen. She is allergic to it. Dragon Disclaimer Dragon Disclaimer This electronic medical record was generated, in whole or in part, using a voice recognition dictation system. Departure Departure Impression: Primary Impression: Abdominal pain Additional Impression: Fever Disposition: 09 ADMITTED INPATIENT Condition: STABLE Referrals: [facility] (PCP) Problem Qualifiers Primary Impression: Abdominal pain Abdominal location: lower abdomen, unspecified Qualified Codes: R10.30 - Lower abdominal pain, unspecified Additional Impression: Fever Fever type: unspecified Qualified Codes: R50.9 - Fever, unspecified KIM SEGAL APRN Oct 07, 2016 09:42
[2016-10-07] MEDS ORDERED: IV NORMAL SALINE 500ML BAG 500 ML IV PRN (09:45)
[2016-10-07] MEDS ORDERED: ACETAMINOPHEN 500 MG TABLET PO ONE (09:45)
[2016-10-07 10:00] LABS: BASO # 0.1 x10^3/uL (0.0-0.2); BASO % 1 % (0-3); EOS % 3 % (0-3); HEMATOCRIT 29.4 % (36.0-47.0); HEMOGLOBIN 9.7 g/dL (12.0-15.5); LYMPH # 1.4 x10^3/uL (1.0-4.8); LYMPH % 17 % (24-48); MEAN CORPUSCULAR HEMOGLOBIN 28 pg (25-35); MEAN CORPUSCULAR HGB CONC 33 g/dL (31-37); MEAN CORPUSCULAR VOLUME 83 fL (79-100); MONO % 9 % (0-9); NEUT % 70 % (31-73); PLATELET COUNT 284 x10^3/uL (140-400); RED BLOOD COUNT 3.53 x10^6/uL (3.50-5.40); RED CELL DISTRIBUTION WIDTH 17.1 % (11.5-14.5); WHITE BLOOD COUNT 8.3 x10^3/uL (4.0-11.0)
[2016-10-07] MEDS ORDERED: IOHEXOL 300 MG/ML 75 ML VIAL IV ONE (10:00)
[2016-10-07] MEDS ORDERED: CONTRAST GIVEN MC PRN (10:00)
[2016-10-07 10:09] LABS: PROTHROMBIN TIME PATIENT 12.6 SEC (11.7-14.0)
[2016-10-07 10:16] LABS: CALCIUM 9.3 mg/dL (8.5-10.1); CREATININE 0.6 mg/dL (0.6-1.0); GFR 118.2; POTASSIUM 3.4 mmol/L (3.5-5.1)
[2016-10-07] MEDS: NORMAL SALINE IV SCH ×2 (10:18→10:19)
[2016-10-07 10:23] LABS: ALBUMIN 3.7 g/dL (3.4-5.0); ALBUMIN/GLOBULIN RATIO 0.9 (1.0-1.7); TOTAL BILIRUBIN 0.4 mg/dL (0.2-1.0); TOTAL PROTEIN 7.7 g/dL (6.4-8.2)
[2016-10-07 11:08] LABS: BILIRUBIN,URINE NEGATIVE (NEG); GLUCOSE,URINE NEGATIVE (NEG); NITRITE,URINE NEGATIVE (NEG); PROTEIN,URINE 30 mg/dL (NEG-TRACE); UROBILINOGEN,URINE 0.2 mg/dL (0.2 mg/dL)
[2016-10-07 11:24] LABS: BACTERIA,URINE FEW /HPF (0-FEW); RBC,URINE TNTC /HPF (0-2); SQUAMOUS EPITHELIAL CELL,UR MOD /LPF
--- NOTE | 2016-10-07 12:23 | RAD ---
CT abdomen/pelvis with contrast 10/07/2016 at 1036 hours Indication: Status post hysterectomy with abdominal pain and bleeding. Comparison: Pelvis MRI 09/11/2016 Technique: Multiple axial CT images of the abdomen and pelvis were obtained after the intravenous administration of 74 mL Omnipaque 300. Findings: Visualized portions of the lung bases are clear. Heart size is within normal limits. Liver is homogeneous without evidence for a focal mass lesion. Spleen is borderline in size measuring 14.5 cm in AP dimension. Pancreas is within normal limits. Adrenal glands are within normal limits. Gallbladder is surgically absent. Abdominal aorta is normal in course and caliber. There are no enlarged lymph nodes in the abdomen. There is a left external iliac lymph node measuring 6.6 mm by short axis (series 3, image 68). The kidneys enhance symmetrically. No hydronephrosis. No suspicious renal mass. Ureters and urinary bladder are within normal limits. The uterus is surgically absent. In the postsurgical bed, there is a gas containing collection measuring 7.6 x 6.0 x 5.4 cm (AP by transverse by craniocaudal). There is moderate free fluid within the pelvis. Additionally, superiorly and anteriorly to this collection, there is a 5.0 x 5.0 cm complex cystic area which is inseparable from the postsurgical bed, however has the appearance of an ovary. The sigmoid colon is separate from this collection and normal in appearance. Normal appendix is visualized. Impression: 1. Complex gas containing collection in the postsurgical bed measuring approximately 7.6 x 6.0 x 5.4 cm. Findings could represent sequela of postsurgical changes, however in the setting of fever and pelvic pain consideration should be given to abscess formation. Recommend correlation with type of surgery performed as well as chronicity of symptoms. 2. There is a 5.0 x 5.0 cm complex cystic mass in the left adnexa which appears inseparable from the gas containing collection described above, however has morphology suggestive of the left ovary. Correlation for surgical removal of the left ovary. If the left ovary remains, this may represent an enlarged left ovary as may be seen in the setting of ovarian torsion and transabdominal pelvic ultrasound is recommended for further evaluation. Critical findings were discussed with Dr. Tovar at 12:15 PM on 10/07/2016 PQRS Compliance Statement: One or more of the following individualized dose reduction techniques were utilized for this examination: 1. Automated exposure control 2. Adjustment of the mA and/or kV according to patient size 3. Use of iterative reconstruction technique
[2016-10-07] MEDS ORDERED: MORPHINE SULFATE 10 MG/ML VIAL. IV ONE (12:45)
[2016-10-07] MEDS ORDERED: HYDROmorphone 2 MG/ML VIAL IV ONE (13:45)
--- NOTE | 2016-10-07 14:35 | RAD ---
Pelvic ultrasound 10/07/2016 at 1400 hours Indication: Pelvic pain and fevers. Comparison: CT abdomen/pelvis 10/07/2016 Technique: Sonographic imaging of the pelvis was performed utilizing transabdominal imaging. Grayscale, color Doppler and spectral waveform analysis was utilized. Findings: Left ovary measures 6.1 x 4.4 x 4.0 cm. Left ovary demonstrates a hypoechoic central areas measuring up to 3.2 x 2.5 cm, which may represent an ovarian cyst. Arterial and venous waveform are documented by color Doppler and spectral waveform analysis at the time of imaging. The right ovary measures 4.1 x 3.2 x 3.0 cm and appears nondescript. Arterial and venous waveform is documented by color Doppler and spectral waveform analysis of the time of imaging. Free fluid is noted within the pelvis. Uterus is surgically absent. Impression: 1. Enlarged left ovary measuring 6.1 x 4.4 x 4.0 cm. Perfusion is documented at the time of imaging. Enlarged appearance of the ovary may be secondary to ovarian cystic lesion such as a hemorrhagic cyst or endometrioma. However, recommend gynecologic consultation. 2. Uterus is surgically absent. Complex pelvic collection is not well visualized. 3. Free fluid is identified within the pelvis.
[2016-10-07] MEDS ORDERED: IBUPROFEN 800 MG TABLET. PO PRN (15:30)
[2016-10-07] MEDS ORDERED: ONDANSETRON PF 4 MG/2 ML VIAL. IV PRN (15:30)
[2016-10-07] MEDS ORDERED: MORPHINE SULFATE 4 MG/ML DISP.SYRIN. IV PRN (15:30)
[2016-10-07] MEDS ORDERED: IV NORMAL SALINE 1000ML BAG 1,000 ML IV ONE (15:30)
[2016-10-07] MEDS ORDERED: ACETAMINOPHEN 325 MG TABLET. PO PRN ×2 (15:30→16:15)
[2016-10-07 15:45] VITALS: BP 130/87
[2016-10-07] MEDS: IV RINGERS,LACTATED 1000ML 1,000 ML IV SCH ×2 (16:23→23:41)
[2016-10-07] MEDS: oxyCODONE/APAP 5/325 1 TAB TABLET PO PRN ×3 (16:24→22:35)
[2016-10-07 16:45] LABS: BASO % 1 % (0-3); EOS % 3 % (0-3); HEMATOCRIT 28.5 % (36.0-47.0); HEMOGLOBIN 9.4 g/dL (12.0-15.5); LYMPH # 1.7 x10^3/uL (1.0-4.8); LYMPH % 24 % (24-48); MEAN CORPUSCULAR HEMOGLOBIN 28 pg (25-35); MEAN CORPUSCULAR HGB CONC 33 g/dL (31-37); MEAN CORPUSCULAR VOLUME 85 fL (79-100); MONO % 10 % (0-9); NEUT % 62 % (31-73); PLATELET COUNT 249 x10^3/uL (140-400); RED BLOOD COUNT 3.37 x10^6/uL (3.50-5.40); RED CELL DISTRIBUTION WIDTH 17.3 % (11.5-14.5); WHITE BLOOD COUNT 7.1 x10^3/uL (4.0-11.0)
[2016-10-07] MEDS ORDERED: CYCLOBENZAPRINE 10 MG TABLET. PO PRN (18:00)
[2016-10-07 18:44] VITALS: BP 113/71
[2016-10-07 22:35] VITALS: BP 123/74
[2016-10-08 02:30] VITALS: BP 110/67
[2016-10-08] MEDS: oxyCODONE/APAP 5/325 1 TAB TABLET PO PRN ×2 (02:33→07:42)
[2016-10-08 05:51] LABS: CALCIUM 8.7 mg/dL (8.5-10.1); CREATININE 0.7 mg/dL (0.6-1.0); GFR 98.9; POTASSIUM 3.1 mmol/L (3.5-5.1)
[2016-10-08 05:54] LABS: BASO % 1 % (0-3); EOS % 5 % (0-3); HEMATOCRIT 25.1 % (36.0-47.0); HEMOGLOBIN 8.2 g/dL (12.0-15.5); LYMPH # 1.6 x10^3/uL (1.0-4.8); LYMPH % 24 % (24-48); MEAN CORPUSCULAR HEMOGLOBIN 28 pg (25-35); MEAN CORPUSCULAR HGB CONC 33 g/dL (31-37); MEAN CORPUSCULAR VOLUME 84 fL (79-100); MONO % 7 % (0-9); NEUT % 63 % (31-73); PLATELET COUNT 238 x10^3/uL (140-400); RED BLOOD COUNT 2.98 x10^6/uL (3.50-5.40); RED CELL DISTRIBUTION WIDTH 17.2 % (11.5-14.5); WHITE BLOOD COUNT 6.6 x10^3/uL (4.0-11.0)
[2016-10-08 06:14] VITALS: BP 101/60
[2016-10-08] MEDS: IV RINGERS,LACTATED 1000ML 1,000 ML IV SCH (06:48)
[2016-10-08 11:00] VITALS: BP 115/69
--- NOTE | 2016-10-08 11:47 | PDOC1 ---
History and Physical Date of Admission Date of Admission DATE: 10/08/16 TIME: 11:43 Identification/Chief Complaint Chief Complaint abd pain Problems: Source Source: Patient History of Present Illness History of Present Illness 31 y/o 1 wk s/p CHAPIN presented with c/o abd pain, fever at home and dark vaginal bleeding. Past Surgical History Past Surgical History: , Hysterectomy Social History Smoke: <1 pack per day ALCOHOL: none Drugs: None Current Problem List Problem List Problems Medical Problems: (1) Abdominal pain Status: Acute (2) Fever Status: Acute Problems: Current Medications Current Medications Current Medications Sodium Chloride 2,850 ml @ 2,850 mls/hr Q1H IV Last administered on 10/07/16 10:19; Start 10/07/16 at 09:32 Sodium Chloride 500 ml @ 1,000 mls/hr PRN Q30MIN PRN IV SEE COMMENTS; Start at 09:45; Stop 10/07/16 at 17:50; Status DC Acetaminophen (Tylenol) 1,000 mg 1X ONCE PO Last administered on 10/07/16 10: 17; Start 10/07/16 at 09:45; Stop 10/07/16 at 09:46; Status DC Iohexol (Omnipaque 300 Mg/ml) 75 ml 1X ONCE IV Last administered on 10/07/16 10:34; Start 10/07/16 at 10:00; Stop 10/07/16 at 10:01; Status DC Info (Do NOT chart on this entry -- for MONITORING) 1 each PRN DAILY PRN MC SEE COMMENTS; Start 10/07/16 at 10:00; Stop 10/09/16 at 09:59 Morphine Sulfate 5 mg 1X ONCE IV Last administered on 10/07/16 12:46; Start 10/07/16 at 12:45; Stop 10/07/16 at 12:46; Status DC Hydromorphone HCl (Dilaudid) 1 mg 1X ONCE IV Last administered on 10/07/16 13 :57; Start 10/07/16 at 13:45; Stop 10/07/16 at 13:46; Status DC Ondansetron HCl (Zofran) 4 mg PRN Q8HRS PRN IV NAUSEA/VOMITING; Start 10/07/16 at 15:30; Stop 10/08/16 at 15:29 Morphine Sulfate 4 mg PRN Q2HR PRN IV PAIN; Start 10/07/16 at 15:30; Stop 10/08 at 15:29 Acetaminophen (Tylenol) 650 mg PRN Q4HRS PRN PO FEVER; Start 10/07/16 at 15:30 ; Stop 10/08/16 at 15:29 Sodium Chloride 1,000 ml @ 75 mls/hr 1X ONCE IV ; Start 10/07/16 at 15:30; Stop 10/08/16 at 04:49; Status DC Ibuprofen (Motrin) 800 mg PRN Q6HRS PRN PO INFLAMMATION; Start 10/07/16 at 15: 30; Status UNV Oxycodone/ Acetaminophen (Percocet 5/325) 1 tab PRN Q4HRS PRN PO PAIN Last administered on 10/07/16 18:36; Start 10/07/16 at 16:15 Oxycodone/ Acetaminophen (Percocet 5/325) 2 tab PRN Q4HRS PRN PO PAIN Last administered on 10/08/16 07:42; Start 10/07/16 at 16:15 Ringer's Solution 1,000 ml @ 150 mls/hr Q6H40M IV Last administered on 06:48; Start 10/07/16 at 16:30 Acetaminophen (Tylenol) 800 mg PRN Q8HRS PRN PO PAIN; Start 10/07/16 at 16:15 Cyclobenzaprine HCl (Flexeril) 10 mg PRN BID PRN PO MUSCLE SPASMS Last administered on 10/08/16 07:42; Start 10/07/16 at 18:00 Active Scripts Active Percocet 5-325 Mg Tablet (Oxycodone/Acetaminophen) 1 Each Tablet 1 Tab PO PRN Q6HRS PRN Colace (Docusate Sodium) 100 Mg Capsule 1 Cap PO BID Reported Vitamin D3 (Cholecalciferol (Vitamin D3)) 5,000 Unit Tablet 50,000 Unit PO WEEKLY Ferrous Sulfate 325 Mg Tablet 325 Mg PO Hydrochlorothiazide Tablet (Hydrochlorothiazide) 25 Mg Tablet 25 Mg PO DAILY Zoloft (Sertraline Hcl) 50 Mg Tablet 50 Mg PO DAILY Nifedipine Er (Nifedipine) 60 Mg Tab.er.24 60 Mg PO HS Proair Hfa Inhaler (Albuterol Sulfate) 8.5 Gm Hfa.aer.ad 1 Puff INH PRN Q6HRS PRN Allergies Allergies: Coded Allergies: cephalexin (Verified Allergy, Severe, TURN BLUE, 10/01/16) coconut (Verified Allergy, Intermediate, hives, 10/01/16) ibuprofen (Verified Allergy, Intermediate, ASTHMA, 10/01/16) mushroom (Verified Allergy, Intermediate, hives, 10/01/16) tramadol (Verified Allergy, Intermediate, Hives, 08/09/16) LORTAB is home med ROS General: YES: Chills, Fatigue, No: Night Sweats, Malaise, Appetite, Other PSYCHOLOGICAL ROS: YES: Anxiety, No: Behavioral Disorder, Concentration difficultie, Decreased libido, Depression, Disorientation, Hallucinations, Hostility, Irritablity, Memory difficulties, Mood Swings, Obsessive thoughts, Physical abuse, Sexual abuse, Sleep disturbances, Suicidal ideation, Other Eyes: No Blurry vision, No Decreased vision, No Double vision, No Dry eyes, No Excessive tearing, No Eye Pain, No Itchy Eyes, No Loss of vision, No Photophobia , No Scotomata, No Uses contacts, No Uses glasses, No Other HEENT: No: Heacaches, Visual Changes, Hearing change, Nasal congestion, Nasal discharge, Oral lesions, Sinus pain, Sore Throat, Epistaxis, Sneezing, Snoring, Tinnitus, Vertigo, Vocal changes, Other ALLERGY AND IMMUNOLOGY: No: Hives, Insect Bite Sensitivity, Itchy/Watery Eyes, Nasal Congestion, Post Nasal Drip, Seasonal Allergies, Other Hematological and Lymphatic: No: Bleeding Problems, Blood Clots, Blood Transfusions, Brusing, Night Sweats, Pallor, Swollen Lymph Nodes, Other ENDOCRINE: No: Breast Changes, Galactorrhea, Hair Pattern Changes, Hot Flashes , Malaise/lethargy, Mood Swings, Palpitations, Polydipsia/polyuria, Skin Changes , Temperature Intolerance, Unexpected Weight Changes, Other Breast: No New/Changing Breast Lumps, No Nipple changes, No Nipple discharge, No Other Respiratory: No: Cough, Hemoptysis, Orthopnea, Pleuritic Pain, Shortness of breath, SOB with excertion, Sputum Changes, Stridor, Tachypnea, Wheezing, Other Cardiovascular: No Chest Pain, No Palpitations, No Orthopnea, No Paroxysmal Noc. Dyspnea, No Edema, No Lt Headedness, No Other Gastrointestinal: Yes Abdominal Pain, No Nausea, No Vomiting, No Diarrhea, No Constipation, No Melena, No Hematochezia, No Other Genitourinary: No Dysuria, No Frequency, No Incontinence, No Hematuria, No Retention, No Discharge, No Urgency, No Pain, No Flank Pain, No Other, No , No , No , No , No , No , No Musculoskeletal: No Gait Disturbance, No Joint Pain, No Joint Stiffness, No Joint Swelling, No Muscle Pain, No Muscular Weakness, No Pain In:, No Swelling In:, No Other Physical Exam General: Alert, Oriented X3, Cooperative HEENT: Atraumatic Lungs: Clear to auscultation Heart: S1S2 Cardiovascular: S1 Breasts: Normal Abdomen: Normal bowel sounds, Soft, No masses, Other (mild tenderness) Vitals Vitals Vital Signs Date Time Temp Pulse Resp B/P (MAP) Pulse Ox O2 Delivery O2 Flow Rate FiO2 10/08/16 11:00 98.8 88 18 115/69 (84) 97 Room Air 98.8 Labs Labs Laboratory Tests Test 10/07/16 09:45 10/07/16 10:50 10/07/16 16:35 10/08/16 05:15 White Blood Count 8.3 x10^3/uL (4.0-11.0) 7.1 x10^3/uL (4.0-11.0) 6.6 x10^3/uL (4.0-11.0) Red Blood Count 3.53 x10^6/uL (3.50-5.40) 3.37 x10^6/uL (3.50-5.40) 2.98 x10^6/uL (3.50-5.40) Hemoglobin 9.7 g/dL (12.0-15.5) 9.4 g/dL (12.0-15.5) 8.2 g/dL (12.0-15.5) Hematocrit 29.4 % (36.0-47.0) 28.5 % (36.0-47.0) 25.1 % (36.0-47.0) Mean Corpuscular Volume 83 fL (79-100) 85 fL (79-100) 84 fL (79-100) Mean Corpuscular Hemoglobin 28 pg (25-35) 28 pg (25-35) 28 pg (25-35) Mean Corpuscular Hemoglobin Concent 33 g/dL (31-37) 33 g/dL (31-37) 33 g/dL (31-37) Red Cell Distribution Width 17.1 % (11.5-14.5) 17.3 % (11.5-14.5) 17.2 % (11.5-14.5) Platelet Count 284 x10^3/uL (140-400) 249 x10^3/uL (140-400) 238 x10^3/uL (140-400) Neutrophils (%) (Auto) 70 % (31-73) 62 % (31-73) 63 % (31-73) Lymphocytes (%) (Auto) 17 % (24-48) 24 % (24-48) 24 % (24-48) Monocytes (%) (Auto) 9 % (0-9) 10 % (0-9) 7 % (0-9) Eosinophils (%) (Auto) 3 % (0-3) 3 % (0-3) 5 % (0-3) Basophils (%) (Auto) 1 % (0-3) 1 % (0-3) 1 % (0-3) Neutrophils # (Auto) 5.8 x10^3uL (1.8-7.7) 4.4 x10^3uL (1.8-7.7) 4.2 x10^3uL (1.8-7.7) Lymphocytes # (Auto) 1.4 x10^3/uL (1.0-4.8) 1.7 x10^3/uL (1.0-4.8) 1.6 x10^3/uL (1.0-4.8) Monocytes # (Auto) 0.8 x10^3/uL (0.0-1.1) 0.7 x10^3/uL (0.0-1.1) 0.5 x10^3/uL (0.0-1.1) Eosinophils # (Auto) 0.3 x10^3/uL (0.0-0.7) 0.2 x10^3/uL (0.0-0.7) 0.3 x10^3/uL (0.0-0.7) Basophils # (Auto) 0.1 x10^3/uL (0.0-0.2) 0.0 x10^3/uL (0.0-0.2) 0.0 x10^3/uL (0.0-0.2) Prothrombin Time 12.6 SEC (11.7-14.0) Prothromb Time International Ratio 1.0 (0.8-1.1) Activated Partial Thromboplast Time 25 SEC (24-38) Sodium Level 139 mmol/L (136-145) 141 mmol/L (136-145) Potassium Level 3.4 mmol/L (3.5-5.1) 3.1 mmol/L (3.5-5.1) Chloride Level 100 mmol/L (98-107) 103 mmol/L (98-107) Carbon Dioxide Level 31 mmol/L (21-32) 30 mmol/L (21-32) Anion Gap 8 (6-14) 8 (6-14) Blood Urea Nitrogen 5 mg/dL (7-20) 5 mg/dL (7-20) Creatinine 0.6 mg/dL (0.6-1.0) 0.7 mg/dL (0.6-1.0) Estimated GFR (Cockcroft-Gault) 118.2 98.9 BUN/Creatinine Ratio 8 (6-20) Glucose Level 106 mg/dL (70-99) 126 mg/dL (70-99) Lactic Acid Level 0.7 mmol/L (0.4-2.0) Calcium Level 9.3 mg/dL (8.5-10.1) 8.7 mg/dL (8.5-10.1) Total Bilirubin 0.4 mg/dL (0.2-1.0) Aspartate Amino Transf (AST/SGOT) 62 U/L (15-37) Alanine Aminotransferase (ALT/SGPT) 163 U/L (14-59) Alkaline Phosphatase 159 U/L (46-116) Total Protein 7.7 g/dL (6.4-8.2) Albumin 3.7 g/dL (3.4-5.0) Albumin/Globulin Ratio 0.9 (1.0-1.7) Lipase 84 U/L (73-393) Procalcitonin < 0.10 ng/mL (0.00-0.10) Urine Collection Type Unknown Urine Color Red Urine Clarity Clear Urine pH 7.0 Urine Specific [place] 1.015 Urine Protein 30 mg/dL (NEG-TRACE) Urine Glucose (UA) Negative mg/dL (NEG) Urine Ketones (Stick) Negative mg/dL (NEG) Urine Blood Large (NEG) Urine Nitrite Negative (NEG) Urine Bilirubin Negative (NEG) Urine Urobilinogen Dipstick 0.2 mg/dL (0.2 mg/dL) Urine Leukocyte Esterase Small (NEG) Urine RBC Tntc /HPF (0-2) Urine WBC 1-4 /HPF (0-4) Urine Squamous Epithelial Cells Mod /LPF Urine Bacteria Few /HPF (0-FEW) Urine Mucus Slight /LPF Laboratory Tests Test 10/07/16 16:35 10/08/16 05:15 White Blood Count 7.1 x10^3/uL (4.0-11.0) 6.6 x10^3/uL (4.0-11.0) Red Blood Count 3.37 x10^6/uL (3.50-5.40) 2.98 x10^6/uL (3.50-5.40) Hemoglobin 9.4 g/dL (12.0-15.5) 8.2 g/dL (12.0-15.5) Hematocrit 28.5 % (36.0-47.0) 25.1 % (36.0-47.0) Mean Corpuscular Volume 85 fL (79-100) 84 fL (79-100) Mean Corpuscular Hemoglobin 28 pg (25-35) 28 pg (25-35) Mean Corpuscular Hemoglobin Concent 33 g/dL (31-37) 33 g/dL (31-37) Red Cell Distribution Width 17.3 % (11.5-14.5) 17.2 % (11.5-14.5) Platelet Count 249 x10^3/uL (140-400) 238 x10^3/uL (140-400) Neutrophils (%) (Auto) 62 % (31-73) 63 % (31-73) Lymphocytes (%) (Auto) 24 % (24-48) 24 % (24-48) Monocytes (%) (Auto) 10 % (0-9) 7 % (0-9) Eosinophils (%) (Auto) 3 % (0-3) 5 % (0-3) Basophils (%) (Auto) 1 % (0-3) 1 % (0-3) Neutrophils # (Auto) 4.4 x10^3uL (1.8-7.7) 4.2 x10^3uL (1.8-7.7) Lymphocytes # (Auto) 1.7 x10^3/uL (1.0-4.8) 1.6 x10^3/uL (1.0-4.8) Monocytes # (Auto) 0.7 x10^3/uL (0.0-1.1) 0.5 x10^3/uL (0.0-1.1) Eosinophils # (Auto) 0.2 x10^3/uL (0.0-0.7) 0.3 x10^3/uL (0.0-0.7) Basophils # (Auto) 0.0 x10^3/uL (0.0-0.2) 0.0 x10^3/uL (0.0-0.2) Sodium Level 141 mmol/L (136-145) Potassium Level 3.1 mmol/L (3.5-5.1) Chloride Level 103 mmol/L (98-107) Carbon Dioxide Level 30 mmol/L (21-32) Anion Gap 8 (6-14) Blood Urea Nitrogen 5 mg/dL (7-20) Creatinine 0.7 mg/dL (0.6-1.0) Estimated GFR (Cockcroft-Gault) 98.9 Glucose Level 126 mg/dL (70-99) Calcium Level 8.7 mg/dL (8.5-10.1) VTE Prophylaxis Ordered VTE Prophylaxis Devices: No VTE Pharmacological Prophylaxi: No Assessment/Plan Assessment/Plan A: Abd hematoma s/p LAVH 1 wk ago. P: Pt. was observed with repeat H&H to insure hematoma is stable with no active bleeding. D/c home. F/u in 1 week. NIDIA TSE Jr, MD Oct 08, 2016 11:47
--- NOTE | 2016-10-08 11:48 | DISCH ---
DISCHARGE INSTRUCTIONS Condition on Discharge Condition on Discharge: Stable Activity After Discharge Activity Instructions for Disc: Activity as tolerated Lifting Instructions after Dis: No heavy lifting Driving Instructions after Dis: Do not drive today Diet after Discharge Diet after Discharge: Regular Contacting the DRMin after DC Call your doctor for: Concerns you may have Follow-Up Follow up with: Dr. Velasquez as scheduled. NIDIA VELASQUEZ Jr, MD Oct 08, 2016 11:48
[2016-10-08] MEDS ORDERED: OXYC-323 PO (11:49)
== END 2016-10-08 12:41 | disposition home or self-care (01) ==
LOC: ER 09:17 → 3 NORTH 14:35
PROVIDERS: ADMIT Obstetrics & Gynecology; ATTEND Obstetrics & Gynecology
DX: K91.870 Postprocedural hematoma of a digestive system organ or structure following a digestive system procedure (principal); J45.909 Unspecified asthma, uncomplicated; I10 Essential (primary) hypertension; F41.9 Anxiety disorder, unspecified; F17.210 Nicotine dependence, cigarettes, uncomplicated; Y83.8 Other surgical procedures as the cause of abnormal reaction of the patient, or of later complication, without mention of misadventure at the time of the procedure; Y92.89 Other specified places as the place of occurrence of the external cause; Z90.710 Acquired absence of both cervix and uterus
CPT/HCPCS: 36415; 74177; 76856; 80048; 80053; 81001; 83605; 83690; 84145; 85025; 85610; 85730; 87040; 87086; 96361; 96374; 96375; 99285; G0378; J1170; J2270; J7030; Q9967; G0379; J7120

== ENCOUNTER → 2016-11-25 | Outpatient (CLI) | payer OTHER ==
--- NOTE | 2016-11-25 12:13 | KCIC ---
EXAMINATION: Magnetic resonance imaging (MRI) of the brain and brainstem without contrast 11/25/2016 11:45 AM HISTORY: Headaches, chronic migraines TECHNIQUE: Multiplanar multi-weighted MRI of the brain and brainstem was performed without intravenous contrast using the general brain protocol. COMPARISON: None available. FINDINGS: The scalp and calvarium are normal. The superior sagittal sinus demonstrates normal venous flow. The corpus callosum is normal in shape and signal intensity. The posterior fossa is unremarkable. The pituitary and sella are normal. The brainstem and craniocervical junction are unremarkable. Diffusion weighted images reveal no hyperintensities to suggest acute cerebral infarction. The susceptibility weighted sequences reveal no evidence of acute or chronic hemorrhage. The ventricles are normal in size and position without evidence of hydrocephalus. The paranasal sinuses are normal. The visualized portions of the mastoids are unremarkable. The orbits appear normal. Normal flow voids are demonstrated in the carotid arteries and basilar artery. IMPRESSION: Normal MRI of the brain. Electronically signed by: Natalee Anne MD (11/25/2016 12:10 PM) [id number]
== END | disposition home or self-care (01) ==
LOC: KCIC MRI 11:10
PROVIDERS: ATTEND Physician Assistant
DX: G43.719 Chronic migraine without aura, intractable, without status migrainosus (principal)
CPT/HCPCS: 70551

== ENCOUNTER 2017-06-26 17:12 | Emergency (ER) | payer OTHER ==
[2017-06-26 17:52] LABS: URINE HCG POC HCG NEGATIVE (Negative)
[2017-06-26 17:54] LABS: BILIRUBIN,URINE NEGATIVE (NEG); CLARITY,URINE CLEAR; COLOR,URINE YELLOW; GLUCOSE,URINE NEGATIVE (NEG); NITRITE,URINE NEGATIVE (NEG); PH,URINE 6.5; PROTEIN,URINE NEGATIVE (NEG-TRACE)
[2017-06-26 18:04] LABS: BACTERIA,URINE MOD /HPF (0-FEW); RBC,URINE RARE /HPF (0-2); SQUAMOUS EPITHELIAL CELL,UR MOD /LPF; WBC,URINE RARE /HPF (0-4)
[2017-06-26 18:12] LABS: ADD MAN DIFF? NO
[2017-06-26 18:15] LABS: BASO # 0.1 x10^3/uL (0.0-0.2); BASO % 1 % (0-3); EOS # 0.2 x10^3/uL (0.0-0.7); EOS % 2 % (0-3); HEMATOCRIT 39.4 % (36.0-47.0); HEMOGLOBIN 13.6 g/dL (12.0-15.5); LYMPH # 2.4 x10^3/uL (1.0-4.8); LYMPH % 25 % (24-48); MEAN CORPUSCULAR HEMOGLOBIN 29 pg (25-35); MEAN CORPUSCULAR HGB CONC 34 g/dL (31-37); MEAN CORPUSCULAR VOLUME 83 fL (79-100); MONO # 0.6 x10^3/uL (0.0-1.1); MONO % 7 % (0-9); NEUT # 6.4 x10^3uL (1.8-7.7); NEUT % 66 % (31-73); PLATELET COUNT 288 x10^3/uL (140-400); RED BLOOD COUNT 4.76 x10^6/uL (3.50-5.40); RED CELL DISTRIBUTION WIDTH 14.9 % (11.5-14.5); WHITE BLOOD COUNT 9.7 x10^3/uL (4.0-11.0)
[2017-06-26] MEDS: ONDANSETRON PF 4 MG/2 ML VIAL. IV (18:19)
[2017-06-26] MEDS: MORPHINE SULFATE 4 MG/ML DISP.SYRIN. IV (18:19)
[2017-06-26 18:25] LABS: ANION GAP 9 (6-14); BLOOD UREA NITROGEN 12 mg/dL (7-20); BUN/CREATININE RATIO 15 (6-20); CALCIUM 9.1 mg/dL (8.5-10.1); CARBON DIOXIDE 29 mmol/L (21-32); CHLORIDE 103 mmol/L (98-107); CREATININE 0.8 mg/dL (0.6-1.0); GFR 84.8; GLUCOSE 114 mg/dL (70-99); POTASSIUM 3.5 mmol/L (3.5-5.1); SODIUM 141 mmol/L (136-145)
[2017-06-26] MEDS ORDERED: CONTRAST GIVEN MC (18:30)
[2017-06-26 18:31] LABS: ALBUMIN 3.7 g/dL (3.4-5.0); ALBUMIN/GLOBULIN RATIO 0.9 (1.0-1.7); ALK PHOS 75 U/L (46-116); ALT (SGPT) 29 U/L (14-59); AST (SGOT) 23 U/L (15-37); LIPASE 136 U/L (73-393); TOTAL BILIRUBIN 0.5 mg/dL (0.2-1.0); TOTAL PROTEIN 7.8 g/dL (6.4-8.2)
[2017-06-26] MEDS: IOHEXOL 300 MG/ML 100ML VIAL. IV (18:40)
== END 2017-06-26 19:26 | disposition home or self-care (01) ==
LOC: ER 17:12
DX: R10.33 Periumbilical pain (principal); R10.31 Right lower quadrant pain; R11.0 Nausea; I10 Essential (primary) hypertension; J45.909 Unspecified asthma, uncomplicated; Z88.1 Allergy status to other antibiotic agents; Z88.8 Allergy status to other drugs, medicaments and biological substances; Z88.6 Allergy status to analgesic agent; Z91.018 Allergy to other foods
CPT/HCPCS: 36415; 74177; 80053; 81001; 81025; 83690; 85025; 96374; 96375; 99285-25; J2270; J2405; Q9967

== ENCOUNTER 2017-08-23 09:32 | Emergency (ER) | payer OTHER ==
[2017-08-23] MEDS: oxyCODONE/APAP 5/325 1 TAB TABLET PO (10:30)
[2017-08-23] MEDS: CYCLOBENZAPRINE 10 MG TABLET. PO (11:19)
== END 2017-08-23 11:23 | disposition home or self-care (01) ==
LOC: ER 11:23
DX: S39.92XA Unspecified injury of lower back, initial encounter (principal); I10 Essential (primary) hypertension; J45.909 Unspecified asthma, uncomplicated; Z90.49 Acquired absence of other specified parts of digestive tract; Z90.710 Acquired absence of both cervix and uterus; Z98.890 Other specified postprocedural states; Z88.1 Allergy status to other antibiotic agents; Z91.018 Allergy to other foods; W01.0XXA Fall on same level from slipping, tripping and stumbling without subsequent striking against object, initial encounter; Y93.89 Activity, other specified; Y99.8 Other external cause status; Y92.89 Other specified places as the place of occurrence of the external cause
CPT/HCPCS: 72220; 99284

== ENCOUNTER 2017-10-04 17:09 | Emergency (ER) | payer OTHER ==
[~2017-10-04] VITALS: Ht 160 cm; Wt 111.1 kg
[~2017-10-04 17:09] MED LIST changes: +ALPR0.25 PO; +BUSP15TA PO; -FERR-26 PO; +FERR325T14 PO; +HYDR-971 PO; +TOPI50TA8 PO
[2017-10-04 17:44] VITALS: BP 130/78
[2017-10-04] MEDS ORDERED: HYDROcodone/APAP 5/325MG 1 TAB TABLET PO ONE (18:15)
[2017-10-04] MEDS ORDERED: HYDR-971 PO (18:28)
[2017-10-04] MEDS ORDERED: AMOX500C PO (18:28)
--- NOTE | 2017-10-04 18:30 | PHYS DOC ---
Past Medical History Past Medical History: Anxiety, Asthma, Hypertension Additional Past Medical Histor: PPD, PTSD Past Surgical History: Cholecystectomy, , Hysterectomy, Tonsillectomy , Other Additional Past Surgical Histo: HERNIA REPAIR, Additional Information: 1/2 PPD Alcohol Use: Occasionally Drug Use: None Adult General Chief Complaint Chief Complaint: DENTAL PROBLEM HPI HPI Patient is a 32 year old [f__sex] who presents with [] Review of Systems Review of Systems Constitutional: Denies fever or chills [] Eyes: Denies change in visual acuity, redness, or eye pain [] HENT: Denies nasal congestion or sore throat [] Respiratory: Denies cough or shortness of breath [] Cardiovascular: No additional information not addressed in HPI [] GI: Denies abdominal pain, nausea, vomiting, bloody stools or diarrhea [] : Denies dysuria or hematuria [] Musculoskeletal: Denies back pain or joint pain [] Integument: Denies rash or skin lesions [] Neurologic: Denies headache, focal weakness or sensory changes [] Endocrine: Denies polyuria or polydipsia [] All other systems were reviewed and found to be within normal limits, except as documented in this note. Current Medications Current Medications Current Medications Medications (Trade) Dose Ordered Sig/Mia Start Time Stop Time Status Last Admin Dose Admin Acetaminophen/ Hydrocodone Bitart (Lortab 5/325) 1 tab 1X ONCE 10/04/17 18:15 10/04/17 18:16 DC 10/04/17 18:19 1 TAB Allergies Allergies Allergies Coded Allergies Type Severity Reaction Last Updated Verified cephalexin Allergy Severe TURN BLUE 10/01/16 Yes coconut Allergy Intermediate hives 10/01/16 Yes ibuprofen Allergy Intermediate ASTHMA 10/01/16 Yes mushroom Allergy Intermediate hives 10/01/16 Yes tramadol Allergy Intermediate Hives 08/09/16 Yes Physical Exam Physical Exam Constitutional: Well developed, well nourished, no acute distress, non-toxic appearance. [] HENT: Normocephalic, atraumatic, bilateral external ears normal, oropharynx moist, no oral exudates, nose normal. [] Eyes: PERRLA, EOMI, conjunctiva normal, no discharge. [] Neck: Normal range of motion, no tenderness, supple, no stridor. [] Cardiovascular:Heart rate regular rhythm, no murmur [] Lungs & Thorax: Bilateral breath sounds clear to auscultation [] Abdomen: Bowel sounds normal, soft, no tenderness, no masses, no pulsatile masses. [] Skin: Warm, dry, no erythema, no rash. [] Back: No tenderness, no CVA tenderness. [] Extremities: No tenderness, no cyanosis, no clubbing, ROM intact, no edema. [] Neurologic: Alert and oriented X 3, normal motor function, normal sensory function, no focal deficits noted. [] Psychologic: Affect normal, judgement normal, mood normal. [] Current Patient Data Vital Signs Vital Signs Date Time Temp Pulse Resp B/P (MAP) Pulse Ox O2 Delivery O2 Flow Rate FiO2 10/04/17 18:19 16 98 Room Air 10/04/17 17:44 98.6 93 130/78 (95) 98.6 EKG EKG [] Radiology/Procedures Radiology/Procedures [] Course & Med Decision Making Course & Med Decision Making Pertinent Labs and Imaging studies reviewed. (See chart for details) [] Dragon Disclaimer Dragon Disclaimer This electronic medical record was generated, in whole or in part, using a voice recognition dictation system. Departure Departure Impression: Primary Impression: Pain, dental Disposition: 01 HOME, SELF-CARE Condition: STABLE Referrals: JADEN JUSTICE (PCP) Patient Instructions: Dental Abscess, Dental Pain Additional Instructions: Take the medication as prescribed. Do not drive or operate heavy machinery while taking this medication. Follow-up with a dentist at the first available appointment. If worsening return to the emergency department. Scripts Hydrocodone/Apap 5-325 (NORCO 5-325 TABLET) 1 Each Tablet 1 TAB PO PRN Q6HRS PRN for PAIN, #10 TAB 0 Refills Prov: ROBYN SEWELL APRN 10/04/17 Amoxicillin (AMOXICILLIN) 500 Mg Capsule 2 CAP PO BID, #40 CAP Prov: ROBYN SEWELL APRN 10/04/17 ROBYN SEWELL APRN Oct 04, 2017 18:29
== END 2017-10-04 18:42 | disposition home or self-care (01) ==
LOC: ER 17:09
DX: K08.89 Other specified disorders of teeth and supporting structures (principal); I10 Essential (primary) hypertension; J45.909 Unspecified asthma, uncomplicated; F43.10 Post-traumatic stress disorder, unspecified; F17.200 Nicotine dependence, unspecified, uncomplicated; Z88.1 Allergy status to other antibiotic agents; Z88.6 Allergy status to analgesic agent; Z88.8 Allergy status to other drugs, medicaments and biological substances
CPT/HCPCS: 99283

== ENCOUNTER 2017-12-11 13:01 | Emergency (ER) | payer OTHER ==
[~2017-12-11] VITALS: Ht 160 cm; Wt 118.8 kg
[~2017-12-11 13:01] MED LIST changes: +AMOX500C PO
[2017-12-11 13:31] LABS: BILIRUBIN,URINE NEGATIVE (NEG); CLARITY,URINE CLEAR; COLOR,URINE YELLOW; NITRITE,URINE NEGATIVE (NEG); PROTEIN,URINE NEGATIVE (NEG-TRACE); UROBILINOGEN,URINE 0.2 mg/dL (0.2 mg/dL)
[2017-12-11 13:46] LABS: BACTERIA,URINE FEW /HPF (0-FEW); RBC,URINE 0 /HPF (0-2)
[2017-12-11 13:47] LABS: SQUAMOUS EPITHELIAL CELL,UR OCC /LPF; WBC,URINE 0 /HPF (0-4)
[2017-12-11] MEDS ORDERED: fentaNYL PF VIAL 100 MCG/2 ML VIAL IV ONE (14:00)
[2017-12-11 14:04] LABS: BASO # 0.1 x10^3/uL (0.0-0.2); BASO % 1 % (0-3); EOS # 0.3 x10^3/uL (0.0-0.7); EOS % 3 % (0-3); HEMATOCRIT 37.7 % (36.0-47.0); HEMOGLOBIN 13.5 g/dL (12.0-15.5); LYMPH # 2.1 x10^3/uL (1.0-4.8); LYMPH % 24 % (24-48); MEAN CORPUSCULAR HEMOGLOBIN 31 pg (25-35); MEAN CORPUSCULAR HGB CONC 36 g/dL (31-37); MEAN CORPUSCULAR VOLUME 86 fL (79-100); MONO # 0.7 x10^3/uL (0.0-1.1); MONO % 8 % (0-9); NEUT # 5.7 x10^3uL (1.8-7.7); NEUT % 64 % (31-73); PLATELET COUNT 292 x10^3/uL (140-400); RED BLOOD COUNT 4.38 x10^6/uL (3.50-5.40); RED CELL DISTRIBUTION WIDTH 13.9 % (11.5-14.5); WHITE BLOOD COUNT 8.9 x10^3/uL (4.0-11.0)
[2017-12-11 14:13] LABS: CALCIUM 9.7 mg/dL (8.5-10.1); CREATININE 0.9 mg/dL (0.6-1.0); GFR 73.5; POTASSIUM 3.2 mmol/L (3.5-5.1)
--- NOTE | 2017-12-11 14:48 | PHYS DOC ---
Past Medical History Past Medical History: Anxiety, Asthma, Hypertension Additional Past Medical Histor: POST- DEPRESSION, PTSD Past Surgical History: Cholecystectomy, , Hysterectomy, Tonsillectomy , Other Additional Past Surgical Histo: HERNIA REPAIR Alcohol Use: Occasionally Drug Use: None Adult General Chief Complaint Chief Complaint: ABDOMINAL PAIN HPI HPI Patient is a 32 year old female who presents with pelvic pain. Patient states she has been having pelvic pain over the last 3-5 days. The pain worsened overnight last night. Pain is primarily on the left although she does feel some on the right as well. She does endorse a prior history of ovarian cysts. She has not had a fever or chills. No vaginal symptoms. No urinary symptoms. She is status post hysterectomy. Review of Systems Review of Systems Constitutional: Denies fever or chills Eyes: Denies change HENT: Denies nasal congestion Respiratory: Denies cough Cardiovascular: No additional information not addressed GI: Denies nausea/vomiting : Denies dysuria or hematuria Musculoskeletal: Denies back pain or joint pain Integument: Denies rash or skin lesions Neurologic: Denies headache All other systems were reviewed and found to be within normal limits, except as documented in this note. Current Medications Current Medications Current Medications Medications (Trade) Dose Ordered Sig/Mia Start Time Stop Time Status Last Admin Dose Admin Fentanyl Citrate (Fentanyl 2ml Vial) 75 mcg 1X ONCE 12/11/17 14:00 12/11/17 14:01 DC 12/11/17 14:10 75 MCG Morphine Sulfate (Morphine Sulfate) 4 mg 1X ONCE 12/11/17 16:00 12/11/17 16:01 Allergies Allergies Allergies Coded Allergies Type Severity Reaction Last Updated Verified cephalexin Allergy Severe TURN BLUE 10/01/16 Yes coconut Allergy Intermediate hives 10/01/16 Yes ibuprofen Allergy Intermediate ASTHMA 10/01/16 Yes mushroom Allergy Intermediate hives 10/01/16 Yes tramadol Allergy Intermediate Hives 08/09/16 Yes Physical Exam Physical Exam Constitutional: Well developed, well nourished, no acute distress, non-toxic HENT: Normocephalic, atraumatic, bilateral external ears normal, oropharynx moist Eyes: PERRLA, EOMI, conjunctiva normal Neck: Normal range of motion, no tenderness Cardiovascular:Heart rate regular rhythm, no murmur Lungs & Thorax: Bilateral breath sounds clear to auscultation Abdomen: Bowel sounds normal, soft, nontender but + TTP over the pelvic area, worse on left compared to right Skin: Warm, dry, no erythema Back: No tenderness Extremities: No tenderness Neurologic: Alert and oriented X 3 Psychologic: Affect normal Current Patient Data Vital Signs Vital Signs Date Time Temp Pulse Resp B/P (MAP) Pulse Ox O2 Delivery O2 Flow Rate FiO2 12/11/17 14:59 99 12/11/17 14:10 20 12/11/17 13:10 99.1 79 140/93 (109) Room Air 99.1 Lab Values Laboratory Tests Test 12/11/17 13:20 12/11/17 13:26 12/11/17 13:53 Urine Collection Type Unknown Urine Color Yellow Urine Clarity Clear Urine pH 6.0 Urine Specific [place] 1.010 Urine Protein Negative mg/dL (NEG-TRACE) Urine Glucose (UA) Negative mg/dL (NEG) Urine Ketones (Stick) Negative mg/dL (NEG) Urine Blood Negative (NEG) Urine Nitrite Negative (NEG) Urine Bilirubin Negative (NEG) Urine Urobilinogen Dipstick 0.2 mg/dL (0.2 mg/dL) Urine Leukocyte Esterase Negative (NEG) Urine RBC 0 /HPF (0-2) Urine WBC 0 /HPF (0-4) Urine Squamous Epithelial Cells Occ /LPF Urine Bacteria Few /HPF (0-FEW) POC Urine HCG, Qualitative Hcg negative (Negative) White Blood Count 8.9 x10^3/uL (4.0-11.0) Red Blood Count 4.38 x10^6/uL (3.50-5.40) Hemoglobin 13.5 g/dL (12.0-15.5) Hematocrit 37.7 % (36.0-47.0) Mean Corpuscular Volume 86 fL (79-100) Mean Corpuscular Hemoglobin 31 pg (25-35) Mean Corpuscular Hemoglobin Concent 36 g/dL (31-37) Red Cell Distribution Width 13.9 % (11.5-14.5) Platelet Count 292 x10^3/uL (140-400) Neutrophils (%) (Auto) 64 % (31-73) Lymphocytes (%) (Auto) 24 % (24-48) Monocytes (%) (Auto) 8 % (0-9) Eosinophils (%) (Auto) 3 % (0-3) Basophils (%) (Auto) 1 % (0-3) Neutrophils # (Auto) 5.7 x10^3uL (1.8-7.7) Lymphocytes # (Auto) 2.1 x10^3/uL (1.0-4.8) Monocytes # (Auto) 0.7 x10^3/uL (0.0-1.1) Eosinophils # (Auto) 0.3 x10^3/uL (0.0-0.7) Basophils # (Auto) 0.1 x10^3/uL (0.0-0.2) Sodium Level 141 mmol/L (136-145) Potassium Level 3.2 mmol/L (3.5-5.1) L Chloride Level 102 mmol/L (98-107) Carbon Dioxide Level 31 mmol/L (21-32) Anion Gap 8 (6-14) Blood Urea Nitrogen 9 mg/dL (7-20) Creatinine 0.9 mg/dL (0.6-1.0) Estimated GFR (Cockcroft-Gault) 73.5 Glucose Level 112 mg/dL (70-99) H Calcium Level 9.7 mg/dL (8.5-10.1) Laboratory Tests 12/11/17 13:53 Laboratory Tests 12/11/17 13:53 EKG EKG [] Radiology/Procedures Radiology/Procedures Findings: Hysterectomy. The right ovary was unable to be visualized. The left ovary measures 3.2 x 2.3 x 2.9 cm. It demonstrates normal vascular flow. Small left ovarian follicles seen. Pelvic fluid collection measuring 4.0 x 3.5 x 2.4 cm. Thin septation seen within the collection. Impression: 1. Small left ovarian follicles. Normal left ovarian vascular flow. 2. The right ovary was unable be visualized. 3. Hysterectomy. 4. 4.0 x 3.5 x 2.4 cm pelvic fluid collection, not significantly change from prior ultrasound. Course & Med Decision Making Course & Med Decision Making Pertinent Labs and Imaging studies reviewed. (See chart for details) Patient is seen and examined. Pelvic US and labs ordered. Fentanyl for pain. 15:49: Patient was evaluated in the ER for pelvic pain. Her pelvic ultrasound revealed some follicles but no large cyst. Her labs were normal. Consideration is given for CT scan but the patient's exam is relatively benign. Her CBC is normal. Patient opts not for scan and prefers discharge home. She does follow with [facility] physician at this hospital and will call to make a follow-up appointment. She is discharged home with some pain medications and will return to the ER for any new or worsening symptoms. Addendum: After discharge, I did review the patient's [facility]'s record and recommend future physicians do the same. As of the date of this encounter, 23 controlled substance prescriptions written by 16 different providers over the last 12 months. Patient was treated today but the frequency of prescriptions and number of providers is worth noting on this patient as these numbers represent a high potential for abuse/addiction. Remigio Niño Disclaimer Dragon Disclaimer This electronic medical record was generated, in whole or in part, using a voice recognition dictation system. Departure Departure Referrals: JADEN JUSTICE-[place] (PCP) Scripts Oxycodone/Apap 5-325 (PERCOCET 5-325 MG TABLET) 1 Each Tablet 1-2 EACH PO PRN TID PRN for severe pain, #15 TAB pain Prov: TONA LINTON DO 12/11/17 Cyclobenzaprine Hcl (CYCLOBENZAPRINE HCL) 10 Mg Tablet 1 TAB PO TID for muscle spasm, #21 TAB Prov: TONA LINTON DO 12/11/17 TONA LINTON DO Dec 11, 2017 14:48
[2017-12-11] MEDS ORDERED: MORPHINE SULFATE 4 MG/ML VIAL. IV ONE ×2 (15:00→16:00)
--- NOTE | 2017-12-11 15:09 | RAD ---
History: Pelvic pain, history of ovarian cyst, hysterectomy. Transabdominal and transvaginal Ultrasound imaging of the pelvis was performed. Comparison: Pelvic ultrasound dated 10/07/2016 CT abdomen and pelvis dated 06/26/2017, pelvic ultrasound dated 06/24/2017. LMP: Hysterectomy in 2017 G 5 P5 Findings: Hysterectomy. The right ovary was unable to be visualized. The left ovary measures 3.2 x 2.3 x 2.9 cm. It demonstrates normal vascular flow. Small left ovarian follicles seen. Pelvic fluid collection measuring 4.0 x 3.5 x 2.4 cm. Thin septation seen within the collection. Impression: 1. Small left ovarian follicles. Normal left ovarian vascular flow. 2. The right ovary was unable be visualized. 3. Hysterectomy. 4. 4.0 x 3.5 x 2.4 cm pelvic fluid collection, not significantly change from prior ultrasound. Electronically signed by: Antony Vazquez MD (12/11/2017 3:06 PM) [facility]
[2017-12-11 15:28] VITALS: BP 134/76
[2017-12-11] MEDS ORDERED: OXYC-323 PO (15:54)
[2017-12-11] MEDS ORDERED: CYCL10TA2 PO (15:54)
== END 2017-12-11 16:04 | disposition home or self-care (01) ==
LOC: ER 13:01
DX: R10.2 Pelvic and perineal pain (principal); N83.8 Other noninflammatory disorders of ovary, fallopian tube and broad ligament; J45.909 Unspecified asthma, uncomplicated; I10 Essential (primary) hypertension; Z90.710 Acquired absence of both cervix and uterus; F43.10 Post-traumatic stress disorder, unspecified; Z90.49 Acquired absence of other specified parts of digestive tract; Z98.890 Other specified postprocedural states; Z88.1 Allergy status to other antibiotic agents; Z88.6 Allergy status to analgesic agent; Z88.8 Allergy status to other drugs, medicaments and biological substances
CPT/HCPCS: 36415; 76830; 76856; 80048; 81001; 81025; 85025; 96374; 96375; 96376; 99285; J2270; J3010

== ENCOUNTER 2017-12-21 12:18 | Emergency (ER) | payer OTHER ==
[~2017-12-21] VITALS: Ht 160 cm; Wt 120.2 kg
[~2017-12-21 12:18] MED LIST changes: +CYCL10TA2 PO
[2017-12-21 13:36] LABS: BILIRUBIN,URINE SMALL (NEG); CLARITY,URINE CLOUDY; NITRITE,URINE NEGATIVE (NEG); PROTEIN,URINE NEGATIVE (NEG-TRACE)
[2017-12-21] MEDS ORDERED: CYCLOBENZAPRINE 10 MG TABLET. PO ONE (13:45)
[2017-12-21] MEDS ORDERED: HYDROcodone/APAP 5/325MG 1 TAB TABLET PO ONE (13:45)
[2017-12-21 13:51] LABS: COLOR,URINE YELLOW; SQUAMOUS EPITHELIAL CELL,UR MOD /LPF
[2017-12-21 13:52] LABS: BACTERIA,URINE FEW /HPF (0-FEW)
[2017-12-21 14:00] VITALS: BP 149/87
[2017-12-21] MEDS ORDERED: HYDR-971 PO (14:17)
--- NOTE | 2017-12-21 14:17 | PHYS DOC ---
Past Medical History Past Medical History: Asthma, Hypertension Additional Past Medical Histor: L OVARY CYST Past Surgical History: Cholecystectomy, , Hysterectomy, Tonsillectomy Additional Past Surgical Histo: ADDENOIDS Alcohol Use: None Drug Use: None Adult General Chief Complaint Chief Complaint: ABDOMINAL PAIN HPI HPI Patient is a 32 year old female with history of asthma, who presents today complaining of 10 out of 10 left pelvic pain that has been going on for 2 weeks. Patient states she was seen in the ED 2 weeks ago and was diagnosed with left ovarian cyst. Patient states she has an appointment with her OB next month. Patient states she also has a repeat ultrasound ordered for next month. Patient states she could not wait until then. She contacted the OB and they sent her to the ED to be evaluated. Patient denies any other symptoms. Review of Systems Review of Systems Constitutional: Denies fever or chills [] GI: Reports left pelvic pain, denies, nausea, vomiting, bloody stools or diarrhea [] : Denies dysuria or hematuria [] Musculoskeletal: Denies back pain or joint pain [] Integument: Denies rash or skin lesions [] Neurologic: Denies headache, focal weakness or sensory changes [] All other systems were reviewed and found to be within normal limits, except as documented in this note. Current Medications Current Medications Current Medications Medications (Trade) Dose Ordered Sig/Mia Start Time Stop Time Status Last Admin Dose Admin Acetaminophen/ Hydrocodone Bitart (Lortab 5/325) 2 tab 1X ONCE 12/21/17 13:45 12/21/17 13:46 DC 12/21/17 13:49 2 TAB Cyclobenzaprine HCl (Flexeril) 10 mg 1X ONCE 12/21/17 13:45 12/21/17 13:46 DC 12/21/17 13:50 10 MG Allergies Allergies Allergies Coded Allergies Type Severity Reaction Last Updated Verified cephalexin Allergy Severe TURN BLUE 10/01/16 Yes coconut Allergy Intermediate hives 10/01/16 Yes ibuprofen Allergy Intermediate ASTHMA 10/01/16 Yes mushroom Allergy Intermediate hives 10/01/16 Yes tramadol Allergy Intermediate Hives 08/09/16 Yes Physical Exam Physical Exam Constitutional: Well developed, well nourished, no acute distress, non-toxic appearance. [] Abdomen: Bowel sounds normal, soft, no tenderness, no masses, no pulsatile masses. [] Skin: Warm, dry, no erythema, no rash. [] Back: No tenderness, no CVA tenderness. [] Extremities: No tenderness, no cyanosis, no clubbing, ROM intact, no edema. [] Neurologic: Alert and oriented X 3, normal motor function, normal sensory function, no focal deficits noted. [] Psychologic: Affect normal, judgement normal, mood normal. [] Current Patient Data Vital Signs Vital Signs Date Time Temp Pulse Resp B/P (MAP) Pulse Ox O2 Delivery O2 Flow Rate FiO2 12/21/17 13:49 18 99 12/21/17 12:47 98.3 104 146/95 (112) Room Air 98.3 Lab Values Laboratory Tests Test 12/21/17 13:20 Urine Collection Type Unknown Urine Color Yellow Urine Clarity Cloudy Urine pH 7.0 Urine Specific Koppel >=1.030 Urine Protein Negative mg/dL (NEG-TRACE) Urine Glucose (UA) Negative mg/dL (NEG) Urine Ketones (Stick) Negative mg/dL (NEG) Urine Blood Negative (NEG) Urine Nitrite Negative (NEG) Urine Bilirubin Small (NEG) Urine Urobilinogen Dipstick 1.0 mg/dL (0.2 mg/dL) Urine Leukocyte Esterase Negative (NEG) Urine RBC 1-2 /HPF (0-2) Urine WBC 1-4 /HPF (0-4) Urine Squamous Epithelial Cells Mod /LPF Urine Bacteria Few /HPF (0-FEW) Urine Mucus Slight /LPF EKG EKG [] Radiology/Procedures Radiology/Procedures [] Course & Med Decision Making Course & Med Decision Making Pertinent Labs and Imaging studies reviewed. (See chart for details) This is a 32-year-old female patient presenting to the ED today with left pelvic pain from an ovarian cyst she was diagnosed with 2 weeks ago. Patient was given pain relief in the ED. Discharged with 10 tablets of [place]. Instructed to follow-up with her DIRECTOR PHONE as soon as possible. Dragon Disclaimer Dragon Disclaimer This electronic medical record was generated, in whole or in part, using a voice recognition dictation system. Departure Departure Impression: Primary Impression: Pelvic pain Disposition: HOME, SELF-CARE Condition: STABLE Referrals: JADEN JUSTICE (PCP) NIDIA TSE Jr, MD folow up as soon as you can Patient Instructions: Pelvic Pain, Female, [id number] Additional Instructions: You were evaluated in the emergency room for pelvic pain from an ovarian cyst. Follow-up with the DIRECTOR PHONE as soon as you can. Take the prescribed pain medicines as needed for pain. Scripts Hydrocodone/Apap 5-325 (NORCO 5-325 TABLET) 1 Each Tablet 1 TAB PO Q6HRS, #10 TAB Prov: KIM SEGAL APRN 12/21/17 KIM SEGAL APRN Dec 21, 2017 14:17
== END 2017-12-21 14:20 | disposition home or self-care (01) ==
LOC: ER 12:18
DX: R10.2 Pelvic and perineal pain (principal); N83.202 Unspecified ovarian cyst, left side; J45.909 Unspecified asthma, uncomplicated; I10 Essential (primary) hypertension; Z90.49 Acquired absence of other specified parts of digestive tract; Z90.710 Acquired absence of both cervix and uterus; Z88.1 Allergy status to other antibiotic agents; Z88.8 Allergy status to other drugs, medicaments and biological substances; Z91.018 Allergy to other foods
CPT/HCPCS: 81001; 99283

== ENCOUNTER 2018-01-25 12:21 | Emergency (ER) | payer OTHER ==
[~2018-01-25] VITALS: Ht 160 cm; Wt 120.2 kg
[~2018-01-25 12:21] MED LIST changes: +HYDR-2145 PO; +HYDR-3164 PO; -HYDR-971 PO; -HYDR12.53 PO; +HYDR12.575 PO; -HYDR25TA9 PO; -OXYC-323 PO; +OXYC1TAB15 PO
[2018-01-25 12:36] VITALS: BP 146/101
[2018-01-25] MEDS ORDERED: CYCLOBENZAPRINE 10 MG TABLET. PO ONE (13:00)
--- NOTE | 2018-01-25 13:02 | PHYS DOC ---
Past Medical History Past Medical History: Asthma, Hypertension Additional Past Medical Histor: L OVARY CYST Past Surgical History: Cholecystectomy, , Hysterectomy, Tonsillectomy Additional Past Surgical Histo: ADDENOIDS Alcohol Use: None Drug Use: None Adult General Chief Complaint Chief Complaint: MECHANICAL FALL HPI HPI Patient is a 32 year old female with history of hypertension who presents today complaining of 8 out of 10 coccyx pain that began today after she slipped on ice and fell. Patient states the pain radiates to the left lower extremity. Patient denies any numbness or tingling to the the lower extremities. Denies any loss of bowel bladder function. She states the pain is worse on weight bearing. She describes the pain as sharp. Review of Systems Review of Systems Constitutional: Denies fever or chills [] Musculoskeletal: Reports coccyx pain Integument: Denies rash or skin lesions [] Neurologic: Denies headache, focal weakness or sensory changes [] All other systems were reviewed and found to be within normal limits, except as documented in this note. Current Medications Current Medications Current Medications Medications (Trade) Dose Ordered Sig/Mia Start Time Stop Time Status Last Admin Dose Admin Acetaminophen/ Hydrocodone Bitart (Lortab 5/325) 1 tab 1X ONCE 01/25/18 13:30 01/25/18 13:31 01/25/18 13:22 1 TAB Cyclobenzaprine HCl (Flexeril) 10 mg 1X ONCE 01/25/18 13:00 01/25/18 13:01 DC 01/25/18 13:21 10 MG Allergies Allergies Allergies Coded Allergies Type Severity Reaction Last Updated Verified cephalexin Allergy Severe TURN BLUE 10/01/16 Yes coconut Allergy Intermediate hives 10/01/16 Yes ibuprofen Allergy Intermediate ASTHMA 10/01/16 Yes mushroom Allergy Intermediate hives 10/01/16 Yes tramadol Allergy Intermediate Hives 08/09/16 Yes Physical Exam Physical Exam Constitutional: Well developed, well nourished, no acute distress, non-toxic appearance. [] Skin: Warm, dry, no erythema, no rash. [] Back: Tenderness on palpation of the coccyx, positive straight leg raise to the left lower extremity at approximately 45. Extremities: No tenderness, no cyanosis, no clubbing, ROM intact, no edema. [] Neurologic: Alert and oriented X 3, normal motor function, normal sensory function, no focal deficits noted. [] Psychologic: Affect normal, judgement normal, mood normal. [] Current Patient Data Vital Signs Vital Signs Date Time Temp Pulse Resp B/P (MAP) Pulse Ox O2 Delivery O2 Flow Rate FiO2 01/25/18 12:36 97.8 82 18 146/101 (116) 96 Room Air 97.8 EKG EKG [] Radiology/Procedures Radiology/Procedures []PROCEDURE: LUMBAR SPINE 2-3V LUMBAR SPINE 2-3V History: PT FELL TODAY. PAIN TO LOW BACK/COCCYX. Comparison: None are available Transitional anatomy at the lumbosacral junction. Vertebral body height is maintained. No significant subluxation. Surgical clips right upper quadrant. IMPRESSION: No acute fracture or subluxation identified. Transitional anatomy at the lumbosacral junction. Electronically signed by: Maxim Martinez MD (01/25/2018 1:19 PM) [id number] DICTATED and SIGNED BY: MAXIM MARTINEZ MD DATE: 01/25/18 1311 Course & Med Decision Making Course & Med Decision Making Pertinent Labs and Imaging studies reviewed. (See chart for details) This is a 32-year-old female patient presenting to the ED today with coccyx pain status post falling. Lumbar x-rays interpreted by radiologist were negative for any acute findings. Patient was discharged with cyclobenzaprine. Ice recommended to the area. Donut cushion also recommended. Follow-up with primary care doctor in 1-2 weeks as needed. Dragon Disclaimer Dragon Disclaimer This electronic medical record was generated, in whole or in part, using a voice recognition dictation system. Departure Departure Impression: Primary Impression: Fall from standing Additional Impression: Lumbar contusion Disposition: 01 HOME, SELF-CARE Condition: STABLE Referrals: JADEN JUSTICE-[facility] (PCP) Follow-up in 1-2 weeks Patient Instructions: Contusion, [id number], Fall Prevention and Home Safety Additional Instructions: You were evaluated in the emergency room for lumbar contusion, your x-rays were negative for any acute findings. Apply ice to the affected area. You can sit on a donut cushion as needed. Take the prescribed medications as needed. Follow-up with your own doctor in 1-2 weeks as needed. Scripts Cyclobenzaprine Hcl (CYCLOBENZAPRINE HCL) 10 Mg Tablet 1 TAB PO TID, #30 TAB Prov: KIM SEGAL APRN 01/25/18 Diclofenac Sodium (DICLOFENAC SODIUM) 50 Mg Tablet.dr 1 TAB PO BID, #20 TAB 1 Refill Prov: KIM SEGAL APRN 01/25/18 Problem Qualifiers Primary Impression: Fall from standing Encounter type: initial encounter Qualified Codes: W19.XXXA - Unspecified fall, initial encounter Additional Impression: Lumbar contusion Encounter type: initial encounter Qualified Codes: S30.0XXA - Contusion of lower back and pelvis, initial encounter KIM SEGAL APRN Jan 25, 2018 13:02
--- NOTE | 2018-01-25 13:22 | RAD ---
LUMBAR SPINE 2-3V History: PT FELL TODAY. PAIN TO LOW BACK/COCCYX. Comparison: None are available Transitional anatomy at the lumbosacral junction. Vertebral body height is maintained. No significant subluxation. Surgical clips right upper quadrant. IMPRESSION: No acute fracture or subluxation identified. Transitional anatomy at the lumbosacral junction. Electronically signed by: Maxim Martinez MD (01/25/2018 1:19 PM) [facility]
[2018-01-25] MEDS ORDERED: HYDROcodone/APAP 5/325MG 1 TAB TABLET PO ONE (13:30)
[2018-01-25] MEDS ORDERED: CYCL10TA2 PO (13:31)
[2018-01-25] MEDS ORDERED: DICL50TA4 PO (13:31)
== END 2018-01-25 13:43 | disposition home or self-care (01) ==
LOC: ER 12:21
DX: S30.0XXA Contusion of lower back and pelvis, initial encounter (principal); M53.3 Sacrococcygeal disorders, not elsewhere classified; I10 Essential (primary) hypertension; J45.909 Unspecified asthma, uncomplicated; Z90.49 Acquired absence of other specified parts of digestive tract; Z90.710 Acquired absence of both cervix and uterus; Z98.890 Other specified postprocedural states; Z90.89 Acquired absence of other organs; Z88.1 Allergy status to other antibiotic agents; Z88.6 Allergy status to analgesic agent; Z88.5 Allergy status to narcotic agent; Z91.018 Allergy to other foods; W00.0XXA Fall on same level due to ice and snow, initial encounter; Y93.89 Activity, other specified; Y92.89 Other specified places as the place of occurrence of the external cause; Y99.8 Other external cause status
CPT/HCPCS: 72100; 99283

== ENCOUNTER 2018-01-29 09:04 | Emergency (ER) | payer OTHER ==
[~2018-01-29] VITALS: Ht 160 cm; Wt 117.9 kg
[~2018-01-29 09:04] MED LIST changes: +DICL50TA4 PO
[2018-01-29] MEDS ORDERED: DEXAMETHASONE SOD PHOS 20 MG/5 ML VIAL. IV ONE (09:30)
[2018-01-29] MEDS ORDERED: IV NORMAL SALINE 1000ML BAG 1,000 ML IV ONE (09:30)
[2018-01-29] MEDS ORDERED: PROCHLORPERAZINE 10 MG/2 ML VIAL. IV ONE (09:30)
[2018-01-29 10:11] VITALS: BP 116/73
[2018-01-29] MEDS ORDERED: ORPHENADRINE CITRATE 60 MG/2 ML VIAL. IV ONE (10:30)
[2018-01-29] MEDS ORDERED: ORPH100T PO (10:36)
--- NOTE | 2018-01-29 10:37 | PHYS DOC ---
Past Medical History Past Medical History: Asthma, Hypertension, Migraines Additional Past Medical Histor: L OVARY CYST Past Surgical History: Cholecystectomy, , Hysterectomy, Tonsillectomy Additional Past Surgical Histo: ADDENOIDS Alcohol Use: None Drug Use: None Adult General Chief Complaint Chief Complaint: HEADACHE HPI HPI Patient is a 32 year old female who presents to the ER with complaints of a headache x2 days. Patient reports a history of migraines. States she has been taking Tylenol for relief of her symptoms without any benefit. Patient states that this headache is similar to previous headaches that she has experienced. She reports nausea, vision floaters, and sensitivity to light and sound with this headache. She denies any fever, vomiting, abdominal pain, recent head injury, or neck pain. She states the last CT head scan she had was one month ago. Currently she rates her pain as a 10 out of 10 on the pain scale. Review of Systems Review of Systems Constitutional: Denies fever or chills [] Eyes: See HPI HENT: Denies nasal congestion or sore throat [] Respiratory: Denies cough or shortness of breath [] GI: Denies abdominal pain, nausea, or vomiting Musculoskeletal: Denies back pain or joint pain [] Integument: Denies rash or skin lesions [] Neurologic: Denies focal weakness or sensory changes; see HPI complete systems were reviewed and found to be within normal limits, except as documented in this note. Current Medications Current Medications Current Medications Medications (Trade) Dose Ordered Sig/Mia Start Time Stop Time Status Last Admin Dose Admin Dexamethasone Sodium Phosphate (Decadron) 10 mg 1X ONCE 01/29/18 09:30 01/29/18 09:34 DC 01/29/18 09:47 10 MG Orphenadrine Citrate (Norflex) 60 mg 1X ONCE 01/29/18 10:30 01/29/18 10:31 DC 01/29/18 10:27 60 MG Prochlorperazine Edisylate (Compazine) 10 mg 1X ONCE 01/29/18 09:30 01/29/18 09:34 DC 01/29/18 09:48 10 MG Sodium Chloride 1,000 ml @ 1,000 mls/hr 1X ONCE 01/29/18 09:30 01/29/18 10:29 DC 01/29/18 09:45 1,000 MLS/HR Allergies Allergies Allergies Coded Allergies Type Severity Reaction Last Updated Verified cephalexin Allergy Severe TURN BLUE 10/01/16 Yes coconut Allergy Intermediate hives 10/01/16 Yes ibuprofen Allergy Intermediate ASTHMA 10/01/16 Yes mushroom Allergy Intermediate hives 10/01/16 Yes tramadol Allergy Intermediate Hives 08/09/16 Yes Physical Exam Physical Exam Constitutional: Well developed, well nourished, no acute distress, non-toxic appearance, obese. [] HENT: Normocephalic, atraumatic, bilateral external ears normal, oropharynx moist, no oral exudates, nose normal. [] Eyes: PERRLA, conjunctiva normal, no discharge. [] Neck: Normal range of motion Cardiovascular:Heart rate regular rhythm, no murmur [] Lungs & Thorax: Bilateral breath sounds clear to auscultation [] Skin: Warm, dry, no erythema, no rash. [] Extremities: No cyanosis, ROM intact Neurologic: Alert and oriented X 3, normal motor function, normal sensory function, no focal deficits noted. [] Psychologic: Affect normal, judgement normal, mood normal. [] Current Patient Data Vital Signs Vital Signs Date Time Temp Pulse Resp B/P (MAP) Pulse Ox O2 Delivery O2 Flow Rate FiO2 01/29/18 10:11 76 16 98 01/29/18 09:15 98.2 138/90 (106) Room Air 98.2 Lab Values Laboratory Tests Test 01/29/18 09:18 POC Urine HCG, Qualitative Hcg negative (Negative) EKG EKG [] Radiology/Procedures Radiology/Procedures [] Course & Med Decision Making Course & Med Decision Making Pertinent Labs and Imaging studies reviewed. (See chart for details) Dx: migraine GARCIA Pt was given 1L of NS, 10 mg of compazine, 10 mg of decadron, and 60 mg of norflex IV. She reports relief of pain down to a 5/10 after these medications. Pt stated she felt better and was ready to go home. Rx for norflex written. Follow up with PCP next week, return to ER if sx worsen. Patient verbalized an understanding of home care, medications, follow-up, and return to ED instructions and was in agreement with the plan of care. [] Dragon Disclaimer Dragon Disclaimer This electronic medical record was generated, in whole or in part, using a voice recognition dictation system. Departure Departure Impression: Primary Impression: Migraine headache Referrals: JADEN JUSTICE (PCP) Patient Instructions: Recurrent Migraine Headache, [id number] Additional Instructions: Home to rest, limit screen time. Increase clear fluids. Tylenol as needed for pain. Follow up with your PCP next week, return to the ER if symptoms worsen. Scripts Orphenadrine Citrate (ORPHENADRINE CITRATE) 100 Mg Tablet.er 1 TAB PO BID PRN for MIGRAINE HEADACHE for 5 Days, #10 TAB 0 Refills Prov: [employer] ADVISOR 01/29/18 Problem Qualifiers Primary Impression: Migraine headache Migraine type: unspecified Status migrainosus presence: without status migrainosus Intractability: intractable Qualified Codes: G43.919 - Migraine , unspecified, intractable, without status migrainosus [employer] ADVISOR Jan 29, 2018 10:37
== END 2018-01-29 10:40 | disposition home or self-care (01) ==
LOC: ER 09:04
DX: G43.919 Migraine, unspecified, intractable, without status migrainosus (principal); I10 Essential (primary) hypertension; J45.909 Unspecified asthma, uncomplicated; Z88.1 Allergy status to other antibiotic agents; Z91.018 Allergy to other foods; Z88.6 Allergy status to analgesic agent; Z88.8 Allergy status to other drugs, medicaments and biological substances
CPT/HCPCS: 81025; 96374; 96375; 99283; J0780; J1100; J2360; J7030

== ENCOUNTER 2018-03-30 16:46 | Emergency (ER) | payer OTHER ==
[~2018-03-30] VITALS: Ht 160 cm; Wt 117.9 kg
[~2018-03-30 16:46] MED LIST changes: +ALBU2.5V8 INH; +DOXY100C2 PO; +ORPH100T PO; -PROAIR HFA8.5 GM INH
[2018-03-30] MEDS ORDERED: oxyCODONE/APAP 5/325 1 TAB TABLET PO ONE ×2 (17:30→19:15)
[2018-03-30 17:31] LABS: BILIRUBIN,URINE NEGATIVE (NEG); CLARITY,URINE CLEAR; COLOR,URINE YELLOW; NITRITE,URINE NEGATIVE (NEG); PROTEIN,URINE NEGATIVE (NEG-TRACE)
[2018-03-30 17:39] LABS: BACTERIA,URINE FEW /HPF (0-FEW); RBC,URINE 0 /HPF (0-2); SQUAMOUS EPITHELIAL CELL,UR MOD /LPF; WBC,URINE OCC /HPF (0-4)
[2018-03-30 17:59] LABS: BASO # 0.1 x10^3/uL (0.0-0.2); BASO % 1 % (0-3); EOS # 0.3 x10^3/uL (0.0-0.7); EOS % 4 % (0-3); HEMATOCRIT 39.7 % (36.0-47.0); HEMOGLOBIN 13.5 g/dL (12.0-15.5); LYMPH # 2.2 x10^3/uL (1.0-4.8); LYMPH % 33 % (24-48); MEAN CORPUSCULAR HEMOGLOBIN 29 pg (25-35); MEAN CORPUSCULAR HGB CONC 34 g/dL (31-37); MEAN CORPUSCULAR VOLUME 86 fL (79-100); MONO # 0.6 x10^3/uL (0.0-1.1); MONO % 9 % (0-9); NEUT # 3.4 x10^3uL (1.8-7.7); NEUT % 52 % (31-73); PLATELET COUNT 250 x10^3/uL (140-400); RED BLOOD COUNT 4.64 x10^6/uL (3.50-5.40); RED CELL DISTRIBUTION WIDTH 14.1 % (11.5-14.5); WHITE BLOOD COUNT 6.6 x10^3/uL (4.0-11.0)
[2018-03-30 18:08] LABS: CALCIUM 9.1 mg/dL (8.5-10.1); CREATININE 0.9 mg/dL (0.6-1.0); GFR 73.5; POTASSIUM 3.4 mmol/L (3.5-5.1)
[2018-03-30 18:14] LABS: ALBUMIN 3.6 g/dL (3.4-5.0); ALBUMIN/GLOBULIN RATIO 0.9 (1.0-1.7); TOTAL BILIRUBIN 0.3 mg/dL (0.2-1.0); TOTAL PROTEIN 7.4 g/dL (6.4-8.2)
--- NOTE | 2018-03-30 19:23 | RAD ---
Transabdominal and transvaginal ultrasound the pelvis. HISTORY: Lower abdominal pain, vaginal spotting Ultrasound was used to evaluate the pelvis. The patient's had a partial hysterectomy. Visualization is poor transabdominally. The right ovary appeared to be identified measuring 2.2 cm x 3.3 x 2.4 cm and normal in appearance. Transvaginal imaging showed free fluid in the cul-de-sac. Left ovary was identified transvaginally measuring 3.6 x 2.3 x 2 cm. There is a 1.7 cm cyst or follicle in the left ovary. There is flow in the left ovary with color imaging. IMPRESSION: 1. Left ovarian small cyst or follicle. 2. Free fluid in the cul-de-sac. Electronically signed by: Beny Wilson MD (03/30/2018 7:18 PM) [facility]
[2018-03-30] MEDS ORDERED: OXYC1TAB15 PO (19:43)
--- NOTE | 2018-03-30 19:44 | PHYS DOC ---
Past Medical History Past Medical History: Asthma, Hypertension, Migraines Additional Past Medical Histor: L OVARY CYST (LES ZAMORA ADJUNCT POLITICAL SCIENCE INSTRUCTOR) Past Surgical History: Cholecystectomy, , Hysterectomy, Tonsillectomy , Other Additional Past Surgical Histo: ADDENOIDS,hernia repair (LES ZAMORA ADJUNCT POLITICAL SCIENCE INSTRUCTOR) Alcohol Use: None Drug Use: None (LES ZAMORA APRN) Adult General Chief Complaint Chief Complaint: ABDOMINAL PAIN HPI HPI Patient is a 32 year old female who presents with right and left and mid lower abdominal pain. Patient is status post hysterectomy one year ago. She sees Dr. Velasquez. She walks with a steady gait. Patient denies nausea, vomiting, diarrhea , fever, recent illness. (LES ZAMORA ADJUNCT POLITICAL SCIENCE INSTRUCTOR) Review of Systems Review of Systems Constitutional: Denies fever or chills [] Eyes: Denies change in visual acuity, redness, or eye pain [] HENT: Denies nasal congestion or sore throat [] Respiratory: Denies cough or shortness of breath [] Cardiovascular: No additional information not addressed in HPI [] GI: abdominal pain, denies nausea, vomiting, bloody stools or diarrhea [] : Denies dysuria or hematuria [] Musculoskeletal: Denies back pain or joint pain [] Integument: Denies rash or skin lesions [] Neurologic: Denies headache, focal weakness or sensory changes [] Endocrine: Denies polyuria or polydipsia [] All other systems were reviewed and found to be within normal limits, except as documented in this note. (LES ZAMORA APRN) Current Medications Current Medications Current Medications Medications (Trade) Dose Ordered Sig/Mia Start Time Stop Time Status Last Admin Dose Admin Oxycodone/ Acetaminophen (Percocet 5/325) 1 tab 1X ONCE 03/30/18 19:15 03/30/18 19:16 DC 03/30/18 19:19 1 TAB (YOEL JUSTICE DO) Allergies Allergies Allergies Coded Allergies Type Severity Reaction Last Updated Verified cephalexin Allergy Severe TURN BLUE 10/01/16 Yes coconut Allergy Intermediate hives 10/01/16 Yes ibuprofen Allergy Intermediate ASTHMA 10/01/16 Yes mushroom Allergy Intermediate hives 10/01/16 Yes tramadol Allergy Intermediate Hives 08/09/16 Yes (YOEL JUSTICE DO) Physical Exam Physical Exam Constitutional: Well developed, well nourished, no acute distress, non-toxic appearance. [] HENT: Normocephalic, atraumatic, bilateral external ears normal, oropharynx moist, no oral exudates, nose normal. [] Eyes: PERRLA, EOMI, conjunctiva normal, no discharge. [] Neck: Normal range of motion, no tenderness, supple, no stridor. [] Cardiovascular:Heart rate regular rhythm, no murmur [] Lungs & Thorax: Bilateral breath sounds clear to auscultation [] Abdomen: Bowel sounds normal, soft, right, left, mid lower tenderness, no masses , no pulsatile masses. [] Skin: Warm, dry, no erythema, no rash. [] Back: No tenderness, no CVA tenderness. [] Extremities: No tenderness, no cyanosis, no clubbing, ROM intact, no edema. [] Neurologic: Alert and oriented X 3, normal motor function, normal sensory function, no focal deficits noted. [] Psychologic: Affect normal, judgement normal, mood normal. [] (LES ZAMORA APRN) Current Patient Data Vital Signs Vital Signs Date Time Temp Pulse Resp B/P (MAP) Pulse Ox O2 Delivery O2 Flow Rate FiO2 03/30/18 20:09 18 97 Room Air 03/30/18 19:46 90 166/98 (120) 03/30/18 17:10 98.2 98.2 (VINHYOEL Dandy ) Lab Values Laboratory Tests Test 03/30/18 17:04 03/30/18 17:20 03/30/18 17:50 Urine Collection Type Unknown Urine Color Yellow Urine Clarity Clear Urine pH 8.0 Urine Specific [place] 1.020 Urine Protein Negative mg/dL (NEG-TRACE) Urine Glucose (UA) Negative mg/dL (NEG) Urine Ketones (Stick) Negative mg/dL (NEG) Urine Blood Negative (NEG) Urine Nitrite Negative (NEG) Urine Bilirubin Negative (NEG) Urine Urobilinogen Dipstick 1.0 mg/dL (0.2 mg/dL) Urine Leukocyte Esterase Negative (NEG) Urine RBC 0 /HPF (0-2) Urine WBC Occ /HPF (0-4) Urine Squamous Epithelial Cells Mod /LPF Urine Bacteria Few /HPF (0-FEW) Urine Mucus Slight /LPF POC Urine HCG, Qualitative Hcg negative (Negative) White Blood Count 6.6 x10^3/uL (4.0-11.0) Red Blood Count 4.64 x10^6/uL (3.50-5.40) Hemoglobin 13.5 g/dL (12.0-15.5) Hematocrit 39.7 % (36.0-47.0) Mean Corpuscular Volume 86 fL (79-100) Mean Corpuscular Hemoglobin 29 pg (25-35) Mean Corpuscular Hemoglobin Concent 34 g/dL (31-37) Red Cell Distribution Width 14.1 % (11.5-14.5) Platelet Count 250 x10^3/uL (140-400) Neutrophils (%) (Auto) 52 % (31-73) Lymphocytes (%) (Auto) 33 % (24-48) Monocytes (%) (Auto) 9 % (0-9) Eosinophils (%) (Auto) 4 % (0-3) H Basophils (%) (Auto) 1 % (0-3) Neutrophils # (Auto) 3.4 x10^3uL (1.8-7.7) Lymphocytes # (Auto) 2.2 x10^3/uL (1.0-4.8) Monocytes # (Auto) 0.6 x10^3/uL (0.0-1.1) Eosinophils # (Auto) 0.3 x10^3/uL (0.0-0.7) Basophils # (Auto) 0.1 x10^3/uL (0.0-0.2) Sodium Level 144 mmol/L (136-145) Potassium Level 3.4 mmol/L (3.5-5.1) L Chloride Level 104 mmol/L (98-107) Carbon Dioxide Level 30 mmol/L (21-32) Anion Gap 10 (6-14) Blood Urea Nitrogen 10 mg/dL (7-20) Creatinine 0.9 mg/dL (0.6-1.0) Estimated GFR (Cockcroft-Gault) 73.5 BUN/Creatinine Ratio 11 (6-20) Glucose Level 89 mg/dL (70-99) Calcium Level 9.1 mg/dL (8.5-10.1) Total Bilirubin 0.3 mg/dL (0.2-1.0) Aspartate Amino Transferase (AST) 30 U/L (15-37) Alanine Aminotransferase (ALT) 56 U/L (14-59) Alkaline Phosphatase 59 U/L (46-116) Total Protein 7.4 g/dL (6.4-8.2) Albumin 3.6 g/dL (3.4-5.0) Albumin/Globulin Ratio 0.9 (1.0-1.7) L Laboratory Tests 03/30/18 17:50 Laboratory Tests 03/30/18 17:50 (YOEL JUSTICE DO) EKG EKG [] (LES ZAMORA APRN) Radiology/Procedures Radiology/Procedures [] (LES ZAMORA APRN) Radiology/Procedures PROCEDURE: PELVIS W/TV Transabdominal and transvaginal ultrasound the pelvis. HISTORY: Lower abdominal pain, vaginal spotting Ultrasound was used to evaluate the pelvis. The patient's had a partial hysterectomy. Visualization is poor transabdominally. The right ovary appeared to be identified measuring 2.2 cm x 3.3 x 2.4 cm and normal in appearance. Transvaginal imaging showed free fluid in the cul-de-sac. Left ovary was identified transvaginally measuring 3.6 x 2.3 x 2 cm. There is a 1.7 cm cyst or follicle in the left ovary. There is flow in the left ovary with color imaging. IMPRESSION: 1. Left ovarian small cyst or follicle. 2. Free fluid in the cul-de-sac. Electronically signed by: Beny Wilson MD (03/30/2018 7:18 PM) [facility] (YOEL JUSTICE DO) Impressions: [facility] [address] [place] [address] IMAGING REPORT Signed PATIENT: TARUN THOMPSON ACCOUNT: [id number] : 1985 LOCATION: ER AGE: 32 SEX: F EXAM STATUS: REG ER ORD. PHYSICIAN: LES ZAMORA APRN REASON: LOWER ABDOMEN PAIN, VAGINAL SPOTTING PROCEDURE: PELVIS W/TV Transabdominal and transvaginal ultrasound the pelvis. HISTORY: Lower abdominal pain, vaginal spotting Ultrasound was used to evaluate the pelvis. The patient's had a partial hysterectomy. Visualization is poor transabdominally. The right ovary appeared to be identified measuring 2.2 cm x 3.3 x 2.4 cm and normal in appearance. Transvaginal imaging showed free fluid in the cul-de-sac. Left ovary was identified transvaginally measuring 3.6 x 2.3 x 2 cm. There is a 1.7 cm cyst or follicle in the left ovary. There is flow in the left ovary with color imaging. IMPRESSION: 1. Left ovarian small cyst or follicle. 2. Free fluid in the cul-de-sac. Electronically signed by: Beny Wilson MD (03/30/2018 7:18 PM) [facility] DICTATED and SIGNED BY: BENY WILSON MD DATE: 03/30/181914 (LES ZAMORA APRN) Course & Med Decision Making Course & Med Decision Making Patient is a 32 year old female who presents with right and left and mid lower abdominal pain. Patient is status post hysterectomy one year ago. She sees Dr. Velasquez. She walks with a steady gait. Patient denies nausea, vomiting, diarrhea , fever, recent illness. Alert and oriented. Speaks in full clear sentences. Mucous members are moist. Skin pink warm and dry. Patient states she does have a history of ovarian cysts. Patient is rating her pain a 10 out 10 and states nothing is helping. In the patient's chart she was just here and had an ultrasound done March 24. patient denies any vaginal pain, spotting, discharge. She denies any claims of sexual transmitted diseases. Abdomen is tender to right left and mid lower abdominal area. Afebrile. Patient asking nurse for IV and states that it's healing or put an IV in her into straight stick her. Patient is told she is not receiving an IV nor she receiving IV pain medications. She is given one Percocet. 15 minutes after patient is given a Percocet she is asking for more pain medicine. Patient is told by nurse that she needs at least give the Percocet 45 minutes to start working. Patient continues to call out and one more pain medicine right pain shots. Patient so she is not getting any pain shots. Patient is ordered one more Percocet before she discharge. Pelvic ultrasound shows ovarian cysts. Patient is only given 5-6 Percocets to go home on. Patient' s using heating pad and she needs to go see Dr Velasquez which she has a appointment with already. (LES ZAMORA APRN) Dragon Disclaimer Dragon Disclaimer This electronic medical record was generated, in whole or in part, using a voice recognition dictation system. 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 Try using a heating pad. Take medication as prescribed. Scripts Oxycodone/Apap 5-325 (PERCOCET 5-325 MG TABLET ) 1 Each Tablet 1 TAB PO PRN Q6HRS PRN for PAIN, #6 TAB 0 Refills Prov: LES ZAMORA APRN 03/30/18 Attending Signature Attending Signature I have reviewed the PA/MEDICAL CODING INSTRUCTOR's note and plan of care. I was available for consultation as needed during the patient's visit in the emergency department. I agree with the clinical impression, plan, and disposition. (YOEL JUSTICE DO) Problem Qualifiers Primary Impression: Ovarian cyst Laterality: left Qualified Codes: N83.202 - Unspecified ovarian cyst, left side LES ZAMORA APRN Mar 30, 2018 19:44 YOEL JUSTICE DO Apr 02, 2018 00:27
[2018-03-30 19:46] VITALS: BP 166/98
== END 2018-03-30 19:53 | disposition home or self-care (01) ==
LOC: ER 16:46
DX: N83.202 Unspecified ovarian cyst, left side (principal); J45.909 Unspecified asthma, uncomplicated; I10 Essential (primary) hypertension; G43.909 Migraine, unspecified, not intractable, without status migrainosus; Z90.89 Acquired absence of other organs; Z90.710 Acquired absence of both cervix and uterus; Z98.890 Other specified postprocedural states; Z88.1 Allergy status to other antibiotic agents; Z88.6 Allergy status to analgesic agent; Z91.018 Allergy to other foods; Z91.013 Allergy to seafood
CPT/HCPCS: 36415; 76830; 76856; 80053; 81001; 81025; 85025; 99284-25

== ENCOUNTER 2018-04-27 14:25 | Emergency (ER) | payer OTHER ==
[~2018-04-27] VITALS: Ht 160 cm; Wt 113.4 kg
--- NOTE | 2018-04-27 15:05 | PHYS DOC ---
Past Medical History Past Medical History: Asthma, Hypertension, Migraines Additional Past Medical Histor: L OVARY CYST Past Surgical History: Cholecystectomy, , Hysterectomy, Tonsillectomy , Other Additional Past Surgical Histo: ADDENOIDS,hernia repair Alcohol Use: None Drug Use: None Adult General Chief Complaint Chief Complaint: HEADACHE HPI HPI Patient is a 32 year old her typical migraine headache that been going on for several days. Patient had tried [id number] medication and her medication already at home but did not get better so she came in here for evaluation. Patient said the BRIGHT LIGHT and loud sound make the headache worse. Patient denies any fever, no neck pain, no neck stiffness. Patient denies any head injury. Review of Systems Review of Systems Constitutional: Denies fever or chills [] Eyes: Denies change in visual acuity, redness, or eye pain [] HENT: Denies nasal congestion or sore throat [] Respiratory: Denies cough or shortness of breath [] Cardiovascular: No additional information not addressed in HPI [] GI: Denies abdominal pain, nausea, vomiting, bloody stools or diarrhea [] : Denies dysuria or hematuria [] Musculoskeletal: Denies back pain or joint pain [] Integument: Denies rash or skin lesions [] Neurologic: Positive for headache NO focal weakness or sensory changes [] Endocrine: Denies polyuria or polydipsia [] All other systems were reviewed and found to be within normal limits, except as documented in this note. Current Medications Current Medications Current Medications Medications (Trade) Dose Ordered Sig/Mia Start Time Stop Time Status Last Admin Dose Admin Diphenhydramine HCl (Benadryl) 50 mg 1X ONCE 04/27/18 15:15 04/27/18 15:16 DC 04/27/18 15:44 50 MG Ketamine HCl (Ketamine) 50 mg STK-MED ONCE 04/27/18 16:35 04/27/18 16:36 DC Prochlorperazine Edisylate (Compazine) 10 mg 1X ONCE 04/27/18 15:15 04/27/18 15:16 DC 04/27/18 15:45 10 MG Allergies Allergies Allergies Coded Allergies Type Severity Reaction Last Updated Verified cephalexin Allergy Severe TURN BLUE 10/01/16 Yes coconut Allergy Intermediate hives 10/01/16 Yes ibuprofen Allergy Intermediate ASTHMA 10/01/16 Yes mushroom Allergy Intermediate hives 10/01/16 Yes tramadol Allergy Intermediate Hives 08/09/16 Yes Physical Exam Physical Exam Constitutional: Well developed, well nourished, no acute distress, non-toxic appearance. [] HENT: Normocephalic, atraumatic, bilateral external ears normal, oropharynx moist, no oral exudates, nose normal. [] Eyes: PERRLA, EOMI, conjunctiva normal, no discharge. [] Neck: Normal range of motion, no tenderness, supple, no stridor. [] Cardiovascular:Heart rate regular rhythm, no murmur [] Lungs & Thorax: Bilateral breath sounds clear to auscultation [] Abdomen: Bowel sounds normal, soft, no tenderness, no masses, no pulsatile masses. [] Skin: Warm, dry, no erythema, no rash. [] Back: No tenderness, no CVA tenderness. [] Extremities: No tenderness, no cyanosis, no clubbing, ROM intact, no edema. [] Neurologic: Alert and oriented X 3, normal motor function, normal sensory function, no focal deficits noted. [] Psychologic: Affect normal, judgement normal, mood normal. [] Current Patient Data Vital Signs Vital Signs Date Time Temp Pulse Resp B/P (MAP) Pulse Ox O2 Delivery O2 Flow Rate FiO2 04/27/18 16:52 92 21 97 04/27/18 14:50 98.0 186/88 (120) Room Air 98.0 EKG EKG [] Radiology/Procedures Radiology/Procedures [] Course & Med Decision Making Course & Med Decision Making Pertinent Labs and Imaging studies reviewed. (See chart for details) Patient was given combination of nonnarcotic medications in the ER, patient felt much better, headache completely gone, will discharge her home, she will need to follow up with her neurologist . Dragon Disclaimer Dragon Disclaimer This electronic medical record was generated, in whole or in part, using a voice recognition dictation system. Departure Departure Impression: Primary Impression: Migraine headache Disposition: HOME, SELF-CARE Condition: IMPROVED Referrals: LORI AC (PCP) Patient Instructions: Migraine Headache ZOEY RICHARDS DO Apr 27, 2018 15:05
[2018-04-27] MEDS ORDERED: diphenhydrAMINE 50 MG/ML VIAL IVP ONE (15:15)
[2018-04-27] MEDS ORDERED: PROCHLORPERAZINE 10 MG/2 ML VIAL. IV ONE (15:15)
[2018-04-27] MEDS ORDERED: KETAMINE HCL IN NACL, ISO-OSM 50 MG/5 ML SYRINGE IV ONE (16:30)
[2018-04-27] MEDS ORDERED: KETAMINE HCL IN NACL, ISO-OSM 50 MG/5 ML SYRINGE ONE (16:35)
[2018-04-27 16:52] VITALS: BP 171/88
== END 2018-04-27 17:35 | disposition home or self-care (01) ==
LOC: ER 14:25
DX: G43.909 Migraine, unspecified, not intractable, without status migrainosus (principal); I10 Essential (primary) hypertension; J45.909 Unspecified asthma, uncomplicated; Z90.49 Acquired absence of other specified parts of digestive tract; Z90.710 Acquired absence of both cervix and uterus; Z98.890 Other specified postprocedural states; Z88.1 Allergy status to other antibiotic agents; Z88.6 Allergy status to analgesic agent; Z91.013 Allergy to seafood; Z91.018 Allergy to other foods; Z88.8 Allergy status to other drugs, medicaments and biological substances
CPT/HCPCS: 96374; 96375; 99283; J0780; J1200

== ENCOUNTER 2018-05-01 18:30 | Emergency (ER) | payer OTHER ==
[~2018-05-01] VITALS: Ht 160 cm; Wt 117.9 kg
--- NOTE | 2018-05-01 20:17 | PHYS DOC ---
Past Medical History Past Medical History: Depression, GERD, Hypertension, Migraines Additional Past Medical Histor: L OVARY CYST Past Surgical History: Cholecystectomy, , Hysterectomy, Tonsillectomy Additional Past Surgical Histo: partial hysterectomy Alcohol Use: Rarely Drug Use: None Adult General Chief Complaint Chief Complaint: HEADACHE HPI HPI Patient is a 32 year old female with a history of HTN and Migraine's presents with a GARCIA and non-productive cough. Pt reports GARCIA starting yesterday and has not gotten better w/ at home medications. Pt describes the pain as "squeezing/ terrible all over the head," and notes photophobia, acoustic sensitivity, and motion sensitivity. She denies vomiting but reports nausea. She has 6 children at home with the youngest being 1 yo and they have been sick. Pt states the cough is from that and complains of it worsening her migraine, denying CP and SOB. She is also worried because her BP readings at home have been elevated around 190/130, stating her usual readings are 130/90's. She recently switched her BP medication 1 week ago, getting off HCTZ and starting edarbi. She reports her symptoms in the past have improved with a cocktail of Prochlorperazine, Benadryll, and Ketamine. She has an appointment w/ her PCP tomorrow in regards to her HTN and starting migraine preventing medications. Review of Systems Review of Systems Constitutional: Denies fever or chills [] Eyes: Denies change in visual acuity and redness. Admits photophobia. HENT: Denies nasal congestion or sore throat [] Respiratory: Denies shortness of breath. Admits to non-productive cough Cardiovascular: No additional information not addressed in HPI [] GI: Denies abdominal pain, nausea, vomiting, bloody stools or diarrhea [] : Denies dysuria or hematuria [] Musculoskeletal: Denies back pain or joint pain [] Integument: Denies rash or skin lesions [] Neurologic: Admits to GARCIA, denies focal weakness or sensory changes Endocrine: Denies polyuria or polydipsia All other systems were reviewed and found to be within normal limits, except as documented in this note. Current Medications Current Medications Current Medications Medications (Trade) Dose Ordered Sig/Mia Start Time Stop Time Status Last Admin Dose Admin Clonidine HCl (Catapres) 0.2 mg 1X ONCE 05/01/18 21:00 05/01/18 21:01 DC 05/01/18 20:59 0.2 MG Dexamethasone Sodium Phosphate (Decadron) 8 mg 1X ONCE 05/01/18 21:00 05/01/18 21:01 DC 05/01/18 20:58 8 MG Diphenhydramine HCl (Benadryl) 50 mg 1X ONCE 05/01/18 21:00 05/01/18 21:01 DC 05/01/18 20:57 50 MG Ketamine HCl (Ketamine) 25 mg 1X ONCE 05/01/18 21:00 05/01/18 21:01 DC 05/01/18 20:59 25 MG Prochlorperazine Edisylate (Compazine) 10 mg 1X ONCE 05/01/18 21:00 05/01/18 21:01 DC 05/01/18 20:57 10 MG Sodium Chloride 1,000 ml @ 1,000 mls/hr 1X ONCE 05/01/18 21:00 05/01/18 21:58 DC 05/01/18 20:57 1,000 MLS/HR Allergies Allergies Allergies Coded Allergies Type Severity Reaction Last Updated Verified cephalexin Allergy Severe TURN BLUE 10/01/16 Yes coconut Allergy Intermediate hives 10/01/16 Yes ibuprofen Allergy Intermediate ASTHMA 10/01/16 Yes mushroom Allergy Intermediate hives 10/01/16 Yes tramadol Allergy Intermediate Hives 08/09/16 Yes Physical Exam Physical Exam Constitutional: Well developed, well nourished, mild distress, non-toxic appearance. [] HENT: Normocephalic, atraumatic, bilateral external ears normal, oropharynx moist, no oral exudates, nose normal. [] Eyes: Unable to examine d/t pt's intense photophobia and GARCIA, will reexamine after migraine cocktail is given. Cardiovascular:Heart rate regular rhythm, no murmur [] Lungs & Thorax: Bilateral breath sounds clear to auscultation [] Abdomen: Bowel sounds normal, soft, no tenderness, no masses, no pulsatile masses. [] Extremities: No tenderness, no cyanosis, no clubbing, ROM intact, no edema. [] Neurologic: Alert and oriented X 4, normal motor function, normal sensory function, no focal deficits noted, EOMI, CN'S INTACT Psychologic: Affect normal, judgement normal, mood normal. [] Current Patient Data Vital Signs Vital Signs Date Time Temp Pulse Resp B/P (MAP) Pulse Ox O2 Delivery O2 Flow Rate FiO2 05/01/18 21:57 81 16 96 05/01/18 20:59 186/125 05/01/18 19:36 98.7 Room Air 98.7 EKG EKG [] Radiology/Procedures Radiology/Procedures 32 yo F w/ a history of migraine's and HTN, who presents with GARCIA rated 10/10 and a concern of high BP readings at home this weekend (190/130's, she states her baseline is 130/90's). She reports photophobia, acoustic sensitivity, motion sensitivity, and nausea w/out vomiting. Pt was seen in the ED 4 days ago for similar symptoms and she responded very well to a cocktail of Prochlorperazine, Benadryll, and Ketamine. She has an appt w/ her PCP tomorrow regarding medication for migraine prevention and her HTN. A full neuro exam was unable to be conducted d/t pt's intense GARCIA which she rates a 10/10. On PE she had no facial asymmetry, was AAOx4, able to hold a conversation w/out inappropriate words or slurring of her words. She was able to walk and reports no focal motor deficits. A full neuro exam will be conducted after pt's pain is better controlled and she can tolerate it. She denies trauma. Ddx Migraine GARCIA HTN Neck Spasm Workup: Cocktail of Prochlorperazine, Benadryll, and Ketamine to help control pt pain, when under control will conduct full neuro exam. Will await results of neuro exam before deciding if imaging is warranted or not. IV acces Anti-hypertensive medications, will start pt on Amlodipine Course & Med Decision Making Course & Med Decision Making Pertinent Labs and Imaging studies reviewed. (See chart for details) []BP 165/113 AFTER TREATMENT AFTER MIGRAINE COCKTAIL PAIN IS GONE COMPLETELY LIKELY MIGRAINE HAS F/U TOMORROW FOR MIGRAINE AND BP FOLLOW UP Renay Disclaimer Renay Disclaimer This electronic medical record was generated, in whole or in part, using a voice recognition dictation system. Departure Departure Impression: Primary Impression: Migraine headache Disposition: 01 HOME, SELF-CARE Condition: STABLE Referrals: LORI AC (PCP) Scripts Prochlorperazine Maleate (Compazine) 10 Mg Tablet 10 MG PO TID PRN for NAUSEA/VOMITING, #30 TAB Prov: REBEL FRANCISCO MD 05/01/18 REBEL FRANCISCO MD May 01, 2018 20:17
[2018-05-01] MEDS ORDERED: IV NORMAL SALINE 1000ML BAG 1,000 ML IV ONE (21:00)
[2018-05-01] MEDS ORDERED: KETAMINE HCL IN NACL, ISO-OSM 50 MG/5 ML SYRINGE IV ONE (21:00)
[2018-05-01] MEDS ORDERED: cloNIDine HCL 0.1 MG TABLET PO ONE (21:00)
[2018-05-01] MEDS ORDERED: PROCHLORPERAZINE 10 MG/2 ML VIAL. IV ONE (21:00)
[2018-05-01] MEDS ORDERED: DEXAMETHASONE SOD PHOS 20 MG/5 ML VIAL. IV ONE (21:00)
[2018-05-01] MEDS ORDERED: diphenhydrAMINE 50 MG/ML VIAL IVP ONE (21:00)
[2018-05-01] MEDS ORDERED: PROC10TA57 PO (21:51)
[2018-05-01 21:57] VITALS: BP 165/113
== END 2018-05-01 21:52 | disposition home or self-care (01) ==
LOC: ER 18:30
DX: G43.909 Migraine, unspecified, not intractable, without status migrainosus (principal); I10 Essential (primary) hypertension; K21.9 Gastro-esophageal reflux disease without esophagitis; F32.9 Major depressive disorder, single episode, unspecified; Z90.49 Acquired absence of other specified parts of digestive tract; Z98.890 Other specified postprocedural states; Z90.710 Acquired absence of both cervix and uterus; Z90.89 Acquired absence of other organs; Z88.1 Allergy status to other antibiotic agents; Z88.5 Allergy status to narcotic agent; Z88.6 Allergy status to analgesic agent; Z91.018 Allergy to other foods
CPT/HCPCS: 96374; 96375; 99283; J0780; J1100; J1200; J7030

== ENCOUNTER 2018-05-07 14:41 | Emergency (ER) | payer OTHER ==
[~2018-05-07] VITALS: Ht 160 cm; Wt 120.2 kg
[~2018-05-07 14:41] MED LIST changes: +PROC10TA57 PO
--- NOTE | 2018-05-07 15:44 | PHYS DOC ---
Past Medical History Past Medical History: Depression, GERD, Hypertension, Migraines Additional Past Medical Histor: L OVARY CYST Past Surgical History: Cholecystectomy, , Hysterectomy, Tonsillectomy Additional Past Surgical Histo: partial hysterectomy Alcohol Use: Rarely Drug Use: None Adult General Chief Complaint Chief Complaint: HEADACHE HPI HPI Patient is a 32 year old female with a history of HTN, Migraine GARCIA's, and a recent (05/01/18) ER visit for migraine GARCIA, presents with a headache. At her last visit she reported an appt w/ her PCP regarding Migraine medications - she had been taking Imitrex po but it was not helping, so her PCP thought she would benefit from Imitrex IM Injections. Today she gave herself the injection and pt reports it caused her migraine GARCIA to get worse and started to cause her chest pain. Chest pain started roughly 10 minutes after the injection was given and described as a sharp/stabbing pain localized to mid-substernal area. The PO imitrex caused her CP in the past as well but it was worse today. Pt reports photophobia, acoustic sensitivity, motion sensitivity, and nausea. GARCIA is rated a 10/10, located "all over," and pt states its exactly like all of her migraines. At her last visit 6 days ago and prior visits, she has responded greatly to a cocktail of Prochlorperazine, Benadryll, and Ketamine. She denies vomiting, radiation of CP, arm or jaw numbness/tingling/pain, and bowel or bladder changes. Review of Systems Review of Systems Constitutional: Denies fever or chills Eyes: Denies change in visual acuity, redness. Admits to photophobia and eye pressure/pain HENT: Denies nasal congestion or sore throat Respiratory: Denies cough or shortness of breath Cardiovascular: No additional information not addressed in HPI GI: Denies abdominal pain,vomiting, bloody stools or diarrhea. Admits nausea : Denies dysuria or hematuria Musculoskeletal: Denies back pain or joint pain Integument: Denies rash or skin lesions Neurologic: Denies headache, focal weakness or sensory changes Endocrine: Denies polyuria or polydipsia Current Medications Current Medications Current Medications Medications (Trade) Dose Ordered Sig/Mia Start Time Stop Time Status Last Admin Dose Admin Diphenhydramine HCl (Benadryl) 50 mg 1X ONCE 05/07/18 15:45 05/07/18 15:56 DC 05/07/18 16:22 50 MG Ketamine HCl 20 mg ONCE ONCE 05/07/18 16:00 05/07/18 16:01 DC 05/07/18 16:22 20 MG Ketamine HCl (Ketamine) 20 mg 1X ONCE 05/07/18 15:45 05/07/18 15:46 UNV Prochlorperazine Edisylate (Compazine) 10 mg 1X ONCE 05/07/18 15:45 05/07/18 15:56 DC 05/07/18 16:22 10 MG Allergies Allergies Allergies Coded Allergies Type Severity Reaction Last Updated Verified cephalexin Allergy Severe TURN BLUE 10/01/16 Yes coconut Allergy Intermediate hives 10/01/16 Yes ibuprofen Allergy Intermediate ASTHMA 10/01/16 Yes mushroom Allergy Intermediate hives 10/01/16 Yes tramadol Allergy Intermediate Hives 08/09/16 Yes Physical Exam Physical Exam Constitutional: Well developed, well nourished, no acute distress, non-toxic appearance. HENT: Normocephalic, atraumatic, bilateral external ears normal, oropharynx moist, no oral exudates, nose normal. Eyes: PERRLA, EOMI, conjunctiva normal, no discharge. Pupillary light reflex present but elicited pain Cardiovascular:Heart rate regular rhythm, no murmur Lungs & Thorax: Bilateral breath sounds clear to auscultation Abdomen: Bowel sounds normal, soft, no tenderness, no masses, no pulsatile masses. Skin: Warm, dry, no erythema, no rash. Back: No tenderness, no CVA tenderness. Extremities: No tenderness, no cyanosis, no clubbing, ROM intact, no edema. Neurologic: Alert and oriented X 3, normal motor function, normal sensory function, no focal deficits noted. CN II-XII intact b/l. Psychologic: Affect normal, judgement normal, mood normal. Current Patient Data Vital Signs Vital Signs Date Time Temp Pulse Resp B/P (MAP) Pulse Ox O2 Delivery O2 Flow Rate FiO2 05/07/18 14:58 98.7 112 18 167/98 (121) 99 Room Air 98.7 Lab Values Laboratory Tests Test 05/07/18 16:11 White Blood Count 8.3 x10^3/uL (4.0-11.0) Red Blood Count 4.71 x10^6/uL (3.50-5.40) Hemoglobin 13.5 g/dL (12.0-15.5) Hematocrit 40.0 % (36.0-47.0) Mean Corpuscular Volume 85 fL (79-100) Mean Corpuscular Hemoglobin 29 pg (25-35) Mean Corpuscular Hemoglobin Concent 34 g/dL (31-37) Red Cell Distribution Width 14.3 % (11.5-14.5) Platelet Count 301 x10^3/uL (140-400) Neutrophils (%) (Auto) 63 % (31-73) Lymphocytes (%) (Auto) 26 % (24-48) Monocytes (%) (Auto) 7 % (0-9) Eosinophils (%) (Auto) 3 % (0-3) Basophils (%) (Auto) 1 % (0-3) Neutrophils # (Auto) 5.3 x10^3uL (1.8-7.7) Lymphocytes # (Auto) 2.2 x10^3/uL (1.0-4.8) Monocytes # (Auto) 0.6 x10^3/uL (0.0-1.1) Eosinophils # (Auto) 0.2 x10^3/uL (0.0-0.7) Basophils # (Auto) 0.1 x10^3/uL (0.0-0.2) Prothrombin Time 13.0 SEC (11.7-14.0) Prothrombin Time INR 1.0 (0.8-1.1) Laboratory Tests 05/07/18 16:11 EKG EKG [] Radiology/Procedures Radiology/Procedures [] Course & Med Decision Making Course & Med Decision Making 32 year old female w/ a history of HTN, Migraine GARCIA's, and a recent ER for migraine's (05/02/15) presents with a headache and chest pain. Pt was switched to IM injections of Imitrex on wednesday by her PCP. Pt started to experience migraine today (05/07) and took her injection around 10:00 AM ~10 minutes after the injection she experienced new onset chest pain and worsening of her migraine GARCIA. oral Imitrex caused her CP in the past but she states today this CP is worse. CP is gradually getting better. Pt states GARCIA is just like her Migraine GARCIA's in the past. CN II-XII grossly intact. Last visit she responded well to a cocktail of Prochlorperazine, Benadryll, and ketamine. PAIN NOW RESOLVING APPEARS COMFORTABLE DOUBT DISSECTION, R/O HI. Ddx. Workup EKG, Troponin, CXR Neuro appt for pt Migraine Cocktail of Prochlorperazine, Benadryll and Ketamine 445 PM, PT PAIN RSEOLVED, WILL D/C HOME. Dragon Disclaimer Dragon Disclaimer This electronic medical record was generated, in whole or in part, using a voice recognition dictation system. Departure Departure Impression: Primary Impression: Migraine headache Additional Impression: Chest pain Disposition: HOME, SELF-CARE Condition: STABLE Referrals: LORI AC (PCP) Problem Qualifiers REBEL FRANCISCO MD May 07, 2018 15:44
[2018-05-07] MEDS ORDERED: diphenhydrAMINE 50 MG/ML VIAL IVP ONE (15:45)
[2018-05-07] MEDS ORDERED: KETAMINE HCL IN NACL, ISO-OSM 50 MG/5 ML SYRINGE IV ONE (15:45)
[2018-05-07] MEDS ORDERED: PROCHLORPERAZINE 10 MG/2 ML VIAL. IV ONE (15:45)
[2018-05-07] MEDS ORDERED: KETAMINE HCL 500 MG/10 ML VIAL. IV ONE (16:00)
[2018-05-07 16:19] LABS: BASO # 0.1 x10^3/uL (0.0-0.2); BASO % 1 % (0-3); EOS # 0.2 x10^3/uL (0.0-0.7); EOS % 3 % (0-3); HEMOGLOBIN 13.5 g/dL (12.0-15.5); LYMPH # 2.2 x10^3/uL (1.0-4.8); LYMPH % 26 % (24-48); MEAN CORPUSCULAR HEMOGLOBIN 29 pg (25-35); MEAN CORPUSCULAR HGB CONC 34 g/dL (31-37); MEAN CORPUSCULAR VOLUME 85 fL (79-100); MONO # 0.6 x10^3/uL (0.0-1.1); MONO % 7 % (0-9); NEUT # 5.3 x10^3uL (1.8-7.7); NEUT % 63 % (31-73); PLATELET COUNT 301 x10^3/uL (140-400); RED BLOOD COUNT 4.71 x10^6/uL (3.50-5.40); RED CELL DISTRIBUTION WIDTH 14.3 % (11.5-14.5); WHITE BLOOD COUNT 8.3 x10^3/uL (4.0-11.0)
[2018-05-07 16:34] LABS: CALCIUM 9.2 mg/dL (8.5-10.1); CREATININE 0.7 mg/dL (0.6-1.0); GFR 98.3; POTASSIUM 3.3 mmol/L (3.5-5.1)
--- NOTE | 2018-05-07 16:35 | RAD ---
PORTABLE CHEST 1V Clinical indications: MIGRAINE COMPARISON: None available. Findings: No acute lung infiltrate or pleural effusion or pulmonary edema or lung mass or pneumothorax is seen. The heart size, pulmonary vasculature, mediastinum and both flaquita are unremarkable. Impression: No acute radiographic abnormality is seen. Electronically signed by: Daren Danielle MD (05/07/2018 4:32 PM) [facility]
[2018-05-07 16:42] LABS: ALBUMIN 3.7 g/dL (3.4-5.0); ALBUMIN/GLOBULIN RATIO 0.9 (1.0-1.7); TOTAL BILIRUBIN 0.3 mg/dL (0.2-1.0); TOTAL PROTEIN 7.7 g/dL (6.4-8.2)
[2018-05-07 17:00] VITALS: BP 170/94
--- NOTE | 2018-05-08 14:10 | EKG ---
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
== END 2018-05-07 17:14 | disposition home or self-care (01) ==
LOC: ER 14:41
DX: G43.909 Migraine, unspecified, not intractable, without status migrainosus (principal); R07.89 Other chest pain; K21.9 Gastro-esophageal reflux disease without esophagitis; I10 Essential (primary) hypertension; F32.9 Major depressive disorder, single episode, unspecified; Z88.1 Allergy status to other antibiotic agents; Z88.6 Allergy status to analgesic agent; Z88.8 Allergy status to other drugs, medicaments and biological substances; Z91.013 Allergy to seafood; Z91.018 Allergy to other foods
CPT/HCPCS: 36415; 71045; 80053; 84484; 84702; 85025; 85610; 93005; 96374; 96375; 99284; J0780; J1200; J3490

== ENCOUNTER 2018-05-11 10:59 | Emergency (ER) | payer OTHER ==
[~2018-05-11] VITALS: Ht 160 cm; Wt 114.3 kg
[2018-05-11] MEDS ORDERED: diphenhydrAMINE 50 MG/ML VIAL IVP ONE (12:00)
[2018-05-11] MEDS ORDERED: KETAMINE HCL IN NACL, ISO-OSM 50 MG/5 ML SYRINGE IV ONE (12:00)
[2018-05-11] MEDS ORDERED: KETAMINE HCL 500 MG/10 ML VIAL. IV ONE (12:00)
[2018-05-11] MEDS ORDERED: IV NORMAL SALINE 500ML BAG 500 ML IV ONE (12:00)
[2018-05-11] MEDS ORDERED: PROCHLORPERAZINE 10 MG/2 ML VIAL. IV ONE (12:00)
[2018-05-11 13:02] VITALS: BP 160/100
--- NOTE | 2018-05-11 13:07 | PHYS DOC ---
Past Medical History Past Medical History: Depression, GERD, Hypertension, Migraines Additional Past Medical Histor: L OVARY CYST Past Surgical History: Cholecystectomy, , Hysterectomy, Tonsillectomy Additional Past Surgical Histo: partial hysterectomy Alcohol Use: Rarely Drug Use: None Adult General Chief Complaint Chief Complaint: HEADACHE HPI HPI Patient is a 32 year old female with history of migraine headache presented ER today for evaluation of migraine headache started yesterday. Patient says this is her typical migraine headache, no fever, no neck pain, no head injury. Patient was seen in the ER here 3 times prior for the same headache this month. Review of Systems Review of Systems Constitutional: Denies fever or chills [] Eyes: Denies change in visual acuity, redness, or eye pain [] HENT: Denies nasal congestion or sore throat [] Respiratory: Denies cough or shortness of breath [] Cardiovascular: No additional information not addressed in HPI [] GI: Denies abdominal pain, nausea, vomiting, bloody stools or diarrhea [] : Denies dysuria or hematuria [] Musculoskeletal: Denies back pain or joint pain [] Integument: Denies rash or skin lesions [] Neurologic: Positive for headache, no focal weakness or sensory changes [] Endocrine: Denies polyuria or polydipsia [] All other systems were reviewed and found to be within normal limits, except as documented in this note. Current Medications Current Medications Current Medications Medications (Trade) Dose Ordered Sig/Mia Start Time Stop Time Status Last Admin Dose Admin Diphenhydramine HCl (Benadryl) 25 mg 1X ONCE 05/11/18 12:00 05/11/18 12:01 DC 05/11/18 12:28 25 MG Ketamine HCl 20 mg ONCE ONCE 05/11/18 12:00 05/11/18 12:01 DC 05/11/18 12:29 20 MG Ketamine HCl (Ketamine) 25 mg 1X ONCE 05/11/18 12:00 05/11/18 12:01 UNV Prochlorperazine Edisylate (Compazine) 10 mg 1X ONCE 05/11/18 12:00 05/11/18 12:01 DC 05/11/18 12:25 10 MG Sodium Chloride 500 ml @ 500 mls/hr 1X ONCE 05/11/18 12:00 05/11/18 12:59 DC 05/11/18 12:25 500 MLS/HR Allergies Allergies Allergies Coded Allergies Type Severity Reaction Last Updated Verified cephalexin Allergy Severe TURN BLUE 10/01/16 Yes coconut Allergy Intermediate hives 10/01/16 Yes ibuprofen Allergy Intermediate ASTHMA 10/01/16 Yes mushroom Allergy Intermediate hives 10/01/16 Yes tramadol Allergy Intermediate Hives 08/09/16 Yes Physical Exam Physical Exam Constitutional: Well developed, well nourished, no acute distress, non-toxic appearance. [] HENT: Normocephalic, atraumatic, bilateral external ears normal, oropharynx moist, no oral exudates, nose normal. [] Eyes: PERRLA, EOMI, conjunctiva normal, no discharge. [] Neck: Normal range of motion, no tenderness, supple, no stridor. [] Cardiovascular:Heart rate regular rhythm, no murmur [] Lungs & Thorax: Bilateral breath sounds clear to auscultation [] Abdomen: Bowel sounds normal, soft, no tenderness, no masses, no pulsatile masses. [] Skin: Warm, dry, no erythema, no rash. [] Back: No tenderness, no CVA tenderness. [] Extremities: No tenderness, no cyanosis, no clubbing, ROM intact, no edema. [] Neurologic: Alert and oriented X 3, normal motor function, normal sensory function, no focal deficits noted. [] Psychologic: Affect normal, judgement normal, mood normal. [] Current Patient Data Vital Signs Vital Signs Date Time Temp Pulse Resp B/P (MAP) Pulse Ox O2 Delivery O2 Flow Rate FiO2 05/11/18 13:02 96 19 97 05/11/18 11:20 99.0 146/102 (117) Room Air 99.0 EKG EKG [] Radiology/Procedures Radiology/Procedures [] Course & Med Decision Making Course & Med Decision Making Pertinent Labs and Imaging studies reviewed. (See chart for details) Patient felt much better, will discharge home. Dragon Disclaimer Dragon Disclaimer This electronic medical record was generated, in whole or in part, using a voice recognition dictation system. Departure Departure Impression: Primary Impression: Migraine headache Disposition: HOME, SELF-CARE Condition: IMPROVED Referrals: LORI AC (PCP) FOLLOW UP WITH YOUR DOCTOR THIS WEEK Patient Instructions: Migraine Headache ZOEY RICHARDS DO May 11, 2018 13:07
== END 2018-05-11 13:28 | disposition home or self-care (01) ==
LOC: ER 10:59
DX: G43.909 Migraine, unspecified, not intractable, without status migrainosus (principal); F32.9 Major depressive disorder, single episode, unspecified; K21.9 Gastro-esophageal reflux disease without esophagitis; I10 Essential (primary) hypertension; Z90.49 Acquired absence of other specified parts of digestive tract; Z98.890 Other specified postprocedural states; Z90.710 Acquired absence of both cervix and uterus; Z90.89 Acquired absence of other organs; Z88.1 Allergy status to other antibiotic agents; Z88.6 Allergy status to analgesic agent; Z88.5 Allergy status to narcotic agent; Z91.018 Allergy to other foods
CPT/HCPCS: 96374; 96375; 99283; J0780; J1200; J3490; J7040

== ENCOUNTER 2018-05-13 21:15 | Emergency (ER) | payer OTHER ==
[~2018-05-13] VITALS: Ht 162.6 cm; Wt 114.3 kg
[2018-05-13] MEDS ORDERED: IV NORMAL SALINE 1000ML BAG 1,000 ML IV ONE (22:15)
[2018-05-13] MEDS ORDERED: KETAMINE HCL IN NACL, ISO-OSM 50 MG/5 ML SYRINGE IV ONE (22:15)
[2018-05-13] MEDS ORDERED: PROCHLORPERAZINE 10 MG/2 ML VIAL. IV ONE (22:15)
[2018-05-13] MEDS ORDERED: diphenhydrAMINE 50 MG/ML VIAL IVP ONE (22:15)
[2018-05-13 22:45] VITALS: BP 162/88
--- NOTE | 2018-05-13 22:52 | PHYS DOC ---
Past Medical History Past Medical History: Depression, GERD, Hypertension, Migraines Additional Past Medical Histor: L OVARY CYST (ROBYN SEWELL APRN) Past Surgical History: Cholecystectomy, , Hysterectomy, Tonsillectomy Additional Past Surgical Histo: partial hysterectomy (ROBYN SEWELL APRN) Alcohol Use: Rarely Drug Use: None (ROBYN SEWELL APRN) Adult General Chief Complaint Chief Complaint: HEADACHE HPI HPI Patient is a 32 year old female who presents with a headache x 1 day. This is like her normal migraine. She denies changes in vision or back pain. She has not taken any OTC headache medication. (ROBYN SEWELL APRN) Review of Systems Review of Systems Constitutional: Denies fever or chills [] Eyes: Denies change in visual acuity, redness, or eye pain [] HENT: Denies nasal congestion or sore throat [] Respiratory: Denies cough or shortness of breath [] Cardiovascular: No additional information not addressed in HPI [] GI: Denies abdominal pain, nausea, vomiting, bloody stools or diarrhea [] : Denies dysuria or hematuria [] Musculoskeletal: Denies back pain or joint pain [] Integument: Denies rash or skin lesions [] Neurologic: See HPI Endocrine: Denies polyuria or polydipsia [] All other systems were reviewed and found to be within normal limits, except as documented in this note. (ROBYN SEWELL APRN) Current Medications Current Medications Current Medications Medications (Trade) Dose Ordered Sig/Mia Start Time Stop Time Status Last Admin Dose Admin Diphenhydramine HCl (Benadryl) 50 mg 1X ONCE 05/13/18 22:15 05/13/18 22:16 DC 05/13/18 22:19 50 MG Ketamine HCl (Ketamine) 10 mg 1X ONCE 05/13/18 22:15 05/13/18 22:16 DC 05/13/18 22:19 10 MG Prochlorperazine Edisylate (Compazine) 10 mg 1X ONCE 05/13/18 22:15 05/13/18 22:16 DC 05/13/18 22:19 10 MG Sodium Chloride 1,000 ml @ 1,000 mls/hr 1X ONCE 05/13/18 22:15 05/13/18 22:59 DC 05/13/18 22:19 1,000 MLS/HR (REBEL FRANCISCO MD) Allergies Allergies Allergies Coded Allergies Type Severity Reaction Last Updated Verified cephalexin Allergy Severe TURN BLUE 10/01/16 Yes coconut Allergy Intermediate hives 10/01/16 Yes ibuprofen Allergy Intermediate ASTHMA 10/01/16 Yes mushroom Allergy Intermediate hives 10/01/16 Yes tramadol Allergy Intermediate Hives 08/09/16 Yes (REBEL FRANCISCO MD) Physical Exam Physical Exam Constitutional: Well developed, well nourished, no acute distress, non-toxic appearance. [] HENT: Normocephalic, atraumatic, bilateral external ears normal, oropharynx moist, no oral exudates, nose normal. [] Eyes: PERRLA, EOMI, conjunctiva normal, no discharge. [] Neck: Normal range of motion, no tenderness, supple, no stridor. [] Cardiovascular:Heart rate regular rhythm, no murmur [] Lungs & Thorax: Bilateral breath sounds clear to auscultation [] Abdomen: Bowel sounds normal, soft, no tenderness, no masses, no pulsatile masses. [] Skin: Warm, dry, no erythema, no rash. [] Back: No tenderness, no CVA tenderness. [] Extremities: No tenderness, no cyanosis, no clubbing, ROM intact, no edema. [] Neurologic: Alert and oriented X 3, normal motor function, normal sensory function, no focal deficits noted, cranial nerves II-XII are grossly intact. [] Psychologic: Affect normal, judgement normal, mood normal. [] (ROBYN SEWELL APRN) EKG EKG [] (ROBYN SEWELL APRN) Radiology/Procedures Radiology/Procedures [] (ROBYN SEWELL APRN) Course & Med Decision Making Course & Med Decision Making Pertinent Labs and Imaging studies reviewed. (See chart for details) []The patient was given NS, ketamine and compazine in the ED with resolution of her headache. (ROBYN SEWELL APRN) Course & Med Decision Making Staff Physician Addendum: I was working in the ER during the course of this patient's visit. I was available for consultation as needed, but I was not directly involved in the care of this patient. (REBEL FRANCISCO MD) Dragon Disclaimer Dragon Disclaimer This electronic medical record was generated, in whole or in part, using a voice recognition dictation system. (ROBYN SEWELL APRN) Departure Departure Impression: Primary Impression: Migraine headache Disposition: 01 HOME, SELF-CARE Condition: STABLE Referrals: LORI AC (PCP) Patient Instructions: Recurrent Migraine Headache Additional Instructions: Continue your at home care. Follow-up with your primary care provider for potential prophylaxis treatment for your migraines. If worsening return to the emergency department. ROBYN SEWELL APRN May 13, 2018 22:52 REBEL FRANCISCO MD Jul 24, 2018 18:25
== END 2018-05-13 22:57 | disposition home or self-care (01) ==
LOC: ER 21:15
DX: G43.909 Migraine, unspecified, not intractable, without status migrainosus (principal); I10 Essential (primary) hypertension; K21.9 Gastro-esophageal reflux disease without esophagitis; Z88.1 Allergy status to other antibiotic agents; Z88.6 Allergy status to analgesic agent; Z91.013 Allergy to seafood; Z91.018 Allergy to other foods; Z88.8 Allergy status to other drugs, medicaments and biological substances
CPT/HCPCS: 96374; 96375; 99283; J0780; J1200; J7030

== ENCOUNTER 2018-05-20 10:27 | Emergency (ER) | payer OTHER ==
[~2018-05-20] VITALS: Ht 160 cm; Wt 113.4 kg
[2018-05-20 10:36] VITALS: BP 164/90
[2018-05-20] MEDS ORDERED: KETAMINE HCL IN NACL, ISO-OSM 50 MG/5 ML SYRINGE IV ONE (11:00)
[2018-05-20] MEDS ORDERED: diphenhydrAMINE 50 MG/ML VIAL IVP ONE (11:00)
[2018-05-20] MEDS ORDERED: PROCHLORPERAZINE 10 MG/2 ML VIAL. IV ONE (11:00)
[2018-05-20] MEDS ORDERED: IV NORMAL SALINE 1000ML BAG 1,000 ML IV ONE (11:00)
--- NOTE | 2018-05-20 12:19 | PHYS DOC ---
Past Medical History Past Medical History: Depression, GERD, Hypertension, Migraines Additional Past Medical Histor: L OVARY CYST Past Surgical History: Cholecystectomy, , Hysterectomy, Tonsillectomy Additional Past Surgical Histo: partial hysterectomy Additional Information: /2 ppd Alcohol Use: Rarely Drug Use: None Adult General Chief Complaint Chief Complaint: HEADACHE HPI HPI Patient is a 32 year old female with history of acid reflex, hypertension, migraine headaches, depression, who presents to the ED today complaining of a 9 out of 10 migraine headache that began 2 days ago. Patient denies anything specifically exacerbating or relieving the pain. Denies any vomiting but she states she's been nauseated. She states this headache is consistent with her normal migraine. She states she normally comes to the ED and she is given ketamine, Benadryl and Compazine. Review of Systems Review of Systems Constitutional: Denies fever or chills [] Eyes: Denies change in visual acuity, redness, or eye pain [] HENT: Denies nasal congestion or sore throat [] Respiratory: Denies cough or shortness of breath [] Cardiovascular: No additional information not addressed in HPI [] GI: Reports nausea. Denies abdominal pain, vomiting, bloody stools or diarrhea [] : Denies dysuria or hematuria [] Musculoskeletal: Denies back pain or joint pain [] Integument: Denies rash or skin lesions [] Neurologic: Reports migraine headache. Denies Focal weakness or sensory changes [] All other systems were reviewed and found to be within normal limits, except as documented in this note. Current Medications Current Medications Current Medications Medications (Trade) Dose Ordered Sig/[facility] Start Time Stop Time Status Last Admin Dose Admin Diphenhydramine HCl (Benadryl) 25 mg 1X ONCE 05/20/18 11:00 05/20/18 11:01 DC Ketamine HCl (Ketamine) 20 mg 1X ONCE 05/20/18 11:00 05/20/18 11:01 DC 05/20/18 11:24 20 MG Prochlorperazine Edisylate (Compazine) 10 mg 1X ONCE 05/20/18 11:00 05/20/18 11:01 DC 05/20/18 11:23 10 MG Sodium Chloride 1,000 ml @ 1,000 mls/hr 1X ONCE 05/20/18 11:00 05/20/18 11:59 DC Allergies Allergies Allergies Coded Allergies Type Severity Reaction Last Updated Verified cephalexin Allergy Severe TURN BLUE 10/01/16 Yes coconut Allergy Intermediate hives 10/01/16 Yes ibuprofen Allergy Intermediate ASTHMA 10/01/16 Yes mushroom Allergy Intermediate hives 10/01/16 Yes tramadol Allergy Intermediate Hives 08/09/16 Yes Physical Exam Physical Exam Constitutional: Well developed, well nourished, no acute distress, non-toxic appearance. [] HENT: Normocephalic, atraumatic, bilateral external ears normal, oropharynx moist, no oral exudates, nose normal. [] Eyes: PERRLA, EOMI, conjunctiva normal, no discharge. [] Neck: Normal range of motion, no tenderness, supple, no stridor. [] Cardiovascular:Heart rate regular rhythm, no murmur [] Lungs & Thorax: Bilateral breath sounds clear to auscultation [] Abdomen: Bowel sounds normal, soft, no tenderness, no masses, no pulsatile masses. [] Skin: Warm, dry, no erythema, no rash. [] Back: No tenderness, no CVA tenderness. [] Extremities: No tenderness, no cyanosis, no clubbing, ROM intact, no edema. [] Neurologic: Alert and oriented X 3, normal motor function, normal sensory function, no focal deficits noted. Cranial nerves II through XII intact Psychologic: Affect normal, judgement normal, mood normal. [] Current Patient Data Vital Signs Vital Signs Date Time Temp Pulse Resp B/P (MAP) Pulse Ox O2 Delivery O2 Flow Rate FiO2 05/20/18 10:36 98.6 89 16 164/90 (114) 96 Room Air 98.6 EKG EKG [] Radiology/Procedures Radiology/Procedures [] Course & Med Decision Making Course & Med Decision Making Pertinent Labs and Imaging studies reviewed. (See chart for details) This is a 32-year-old female patient presenting to the ED today with a migraine headache, patient has history of migraines, current migraine is consistent with her regular migraines. She was given Benadryl ketamine and Compazine per her request. Pain is relieved, discharged to home. Dragon Disclaimer Dragon Disclaimer This electronic medical record was generated, in whole or in part, using a voice recognition dictation system. Departure Departure Impression: Primary Impression: Migraine headache Disposition: HOME, SELF-CARE Condition: STABLE Referrals: LORI AC (PCP) follow up next week Patient Instructions: Migraine Headache Additional Instructions: You were evaluated in the emergency room for chronic migraine headaches. Please continue following up with your doctor in the course of next week. Problem Qualifiers Primary Impression: Migraine headache Migraine type: unspecified Status migrainosus presence: without status migrainosus Intractability: not intractable Qualified Codes: G43.909 - Migraine, unspecified, not intractable, without status migrainosus KIM SEGAL MAP PLOTTER May 20, 2018 12:19
== END 2018-05-20 12:22 | disposition home or self-care (01) ==
LOC: ER 10:27
DX: G43.909 Migraine, unspecified, not intractable, without status migrainosus (principal); K21.9 Gastro-esophageal reflux disease without esophagitis; I10 Essential (primary) hypertension; F32.9 Major depressive disorder, single episode, unspecified; F17.200 Nicotine dependence, unspecified, uncomplicated; Z88.1 Allergy status to other antibiotic agents; Z88.6 Allergy status to analgesic agent; Z88.8 Allergy status to other drugs, medicaments and biological substances; Z91.013 Allergy to seafood; Z91.018 Allergy to other foods
CPT/HCPCS: 96374; 96375; 99283; J0780; J7030

== ENCOUNTER 2018-05-26 19:47 | Emergency (ER) | payer OTHER ==
[~2018-05-26] VITALS: Ht 160 cm; Wt 117.9 kg
--- NOTE | 2018-05-26 20:43 | PHYS DOC ---
Past Medical History Past Medical History: Depression, GERD, Hypertension, Migraines Additional Past Medical Histor: L OVARY CYST Past Surgical History: Cholecystectomy, , Hysterectomy, Tonsillectomy Additional Past Surgical Histo: partial hysterectomy Alcohol Use: Rarely Drug Use: None Adult General Chief Complaint Chief Complaint: HEADACHE HPI HPI Patient is a 32 year old female who presents with plan a migraine. Patient states that this migraine started 2 days ago. On the first day it was lightening up towards in the day however when she laid down to go to bed it became more severe. Since this time point there has been no change in intensity of her headache. The headache is located in her whole head and she describes it as a pressure sensation. Her headache is worsened by light and sound. States this is her normal presentation for migraine. She attempted to take Tylenol Sudrin mother wishes help relieve her pain. Patient states she normally takes propranolol home to try to prevent headaches. At one point she was on Imitrex but had to stop the Imitrex due to side effects. She denies any chest pain, shortness of breath, lightheadedness, dizziness, or unilateral weakness.[] Review of Systems Review of Systems Constitutional: Denies fever or chills [] Eyes: Reports photophobia, denies redness, or eye pain [] HENT: Denies nasal congestion or sore throat [] Respiratory: Denies cough or shortness of breath [] Cardiovascular: Denies chest pain or palpitations[] GI: Denies abdominal pain, nausea, vomiting. [] : Denies dysuria or hematuria [] Musculoskeletal: Denies back pain or joint pain [] Integument: Denies rash or skin lesions [] Neurologic: Reports headache, denies focal weakness or sensory changes [] Complete systems were reviewed and found to be within normal limits, except as documented in this note. Current Medications Current Medications Current Medications Medications (Trade) Dose Ordered Sig/Mia Start Time Stop Time Status Last Admin Dose Admin Diphenhydramine HCl (Benadryl) 50 mg 1X ONCE 05/26/18 20:45 05/26/18 20:46 DC 05/26/18 21:51 50 MG Ketamine HCl 10 mg 1X ONCE 05/26/18 20:45 05/26/18 20:47 DC 05/26/18 21:48 10 MG Prochlorperazine Edisylate (Compazine) 10 mg 1X ONCE 05/26/18 20:45 05/26/18 20:47 DC 05/26/18 21:50 10 MG Sodium Chloride 1,000 ml @ 1,000 mls/hr 1X ONCE 05/26/18 20:45 05/26/18 21:44 DC 05/26/18 21:47 1,000 MLS/HR Allergies Allergies Allergies Coded Allergies Type Severity Reaction Last Updated Verified cephalexin Allergy Severe TURN BLUE 10/01/16 Yes coconut Allergy Intermediate hives 10/01/16 Yes ibuprofen Allergy Intermediate ASTHMA 10/01/16 Yes mushroom Allergy Intermediate hives 10/01/16 Yes tramadol Allergy Intermediate Hives 08/09/16 Yes Physical Exam Physical Exam Constitutional: Well developed, well nourished, no acute distress, non-toxic appearance. [] HENT: Normocephalic, atraumatic, bilateral external ears normal. [] Eyes: EOMI, conjunctiva normal, no discharge. [] Neck: Normal range of motion, no tenderness, supple, no stridor. [] Cardiovascular:Heart rate regular rhythm, no murmur [] Lungs & Thorax: Bilateral breath sounds clear to auscultation [] Abdomen: Bowel sounds normal, soft, no tenderness. [] Skin: Warm, dry, no erythema, no rash. [] Back: No tenderness, no CVA tenderness. [] Extremities: ROM intact, no edema. [] Neurologic: Alert and oriented X 3, normal motor function, cranial nerves II through XII grossly intact bilaterally, no focal neurological deficits. [] Psychologic: Affect normal, mood normal. [] Current Patient Data Vital Signs Vital Signs Date Time Temp Pulse Resp B/P (MAP) Pulse Ox O2 Delivery O2 Flow Rate FiO2 05/26/18 19:50 98.6 90 18 174/110 (131) 96 Room Air 98.6 Lab Values Laboratory Tests Test 05/26/18 20:41 POC Urine HCG, Qualitative Hcg negative (Negative) EKG EKG [] Radiology/Procedures Radiology/Procedures [] Course & Med Decision Making Course & Med Decision Making 32-year-old female presented due to migraine. Patient states she has migraines and takes propranolol for prevention. She reports in the past Compazine, Benadryl, ketamine have helped relieve her symptoms. Labs obtained and posted to the chart. Pertinent Labs reviewed. Symptomatic treatment provided with interval improvement. (See chart for details) [] Dragon Disclaimer Dragon Disclaimer This electronic medical record was generated, in whole or in part, using a voice recognition dictation system. Departure Departure Impression: Primary Impression: Migraine headache Disposition: 01 HOME, SELF-CARE Condition: STABLE Referrals: LORI AC (PCP) Patient Instructions: Migraine Headache, [id number] Scripts Butalb/Acetaminophen/Caffeine ([id number] 50-325-40) 1 Each Tablet 1 EACH PO Q6HRS PRN for HEADACHE, #14 TAB Prov: YOEL JUSTICE DO 05/26/18 Problem Qualifiers Primary Impression: Migraine headache Migraine type: unspecified Status migrainosus presence: with status migrainosus Intractability: intractable Qualified Codes: G43.911 - Migraine , unspecified, intractable, with status migrainosus YOEL JUSTICE DO May 26, 2018 20:43
[2018-05-26] MEDS ORDERED: KETAMINE HCL 500 MG/10 ML VIAL. IV ONE (20:45)
[2018-05-26] MEDS ORDERED: PROCHLORPERAZINE 10 MG/2 ML VIAL. IV ONE (20:45)
[2018-05-26] MEDS ORDERED: diphenhydrAMINE 50 MG/ML VIAL IVP ONE (20:45)
[2018-05-26] MEDS ORDERED: IV NORMAL SALINE 1000ML BAG 1,000 ML IV ONE (20:45)
[2018-05-26] MEDS ORDERED: BUTA1TAB23 PO (22:20)
[2018-05-26 22:30] VITALS: BP 180/90
== END 2018-05-26 22:39 | disposition home or self-care (01) ==
LOC: ER 19:47
DX: G43.911 Migraine, unspecified, intractable, with status migrainosus (principal); K21.9 Gastro-esophageal reflux disease without esophagitis; I10 Essential (primary) hypertension; F32.9 Major depressive disorder, single episode, unspecified; Z88.1 Allergy status to other antibiotic agents; Z88.6 Allergy status to analgesic agent; Z88.8 Allergy status to other drugs, medicaments and biological substances; Z91.018 Allergy to other foods; Z91.013 Allergy to seafood
CPT/HCPCS: 81025; 96374; 96375; 99283; J0780; J1200; J3490; J7030

== ENCOUNTER 2018-06-11 20:15 | Emergency (ER) | payer MEDICAID, OTHER ==
[~2018-06-11] VITALS: Ht 165.1 cm; Wt 117.9 kg
[~2018-06-11 20:15] MED LIST changes: +BUTA1TAB23 PO
[2018-06-11 21:00] VITALS: BP 163/93
[2018-06-11] MEDS ORDERED: ONDANSETRON PF 4 MG/2 ML VIAL. IV ONE (21:15)
[2018-06-11] MEDS ORDERED: diphenhydrAMINE 50 MG/ML VIAL IM ONE (21:15)
[2018-06-11] MEDS ORDERED: fentaNYL PF VIAL 100 MCG/2 ML VIAL IV ONE (21:15)
[2018-06-11] MEDS ORDERED: HALOPERIDOL LACTATE 5 MG/ML VIAL. IM ONE (21:15)
--- NOTE | 2018-06-12 00:50 | PHYS DOC ---
Past Medical History Past Medical History: Depression, GERD, Hypertension, Migraines Additional Past Medical Histor: L OVARY CYST Past Surgical History: Cholecystectomy, , Hysterectomy, Tonsillectomy Additional Past Surgical Histo: partial hysterectomy Alcohol Use: Rarely Drug Use: None Adult General Chief Complaint Chief Complaint: HEADACHE HPI HPI Patient is a 32 year old female with history of chronic migraines who is well- known to this emergency department who presents with typical migraine headache starting earlier today. Headache is described as retro-orbital, rated moderate to severe. It is dull and aching is similar pattering locations. His prior migraine headaches. Patient is not currently taking migraine medications. This is not the worst headache of the patient's life. [] Review of Systems Review of Systems ROS as per HPI All other systems were reviewed and found to be within normal limits, except as documented in this note. Current Medications Current Medications Current Medications Medications (Trade) Dose Ordered Sig/Mia Start Time Stop Time Status Last Admin Dose Admin Diphenhydramine HCl (Benadryl) 100 mg 1X ONCE 06/11/18 21:15 06/11/18 21:16 DC 06/11/18 21:00 100 MG Fentanyl Citrate (Fentanyl 2ml Vial) 50 mcg 1X ONCE 06/11/18 21:15 06/11/18 21:16 Cancel Haloperidol Lactate (Haldol Inj) 10 mg 1X ONCE 06/11/18 21:15 06/11/18 21:16 DC 06/11/18 21:01 10 MG Ondansetron HCl (Zofran) 4 mg 1X ONCE 06/11/18 21:15 06/11/18 21:16 Cancel Allergies Allergies Allergies Coded Allergies Type Severity Reaction Last Updated Verified cephalexin Allergy Severe TURN BLUE 10/01/16 Yes coconut Allergy Intermediate hives 10/01/16 Yes ibuprofen Allergy Intermediate ASTHMA 10/01/16 Yes mushroom Allergy Intermediate hives 10/01/16 Yes tramadol Allergy Intermediate Hives 08/09/16 Yes Physical Exam Physical Exam Constitutional: Well developed, well nourished, no acute distress, non-toxic appearance. [] HENT: Normocephalic, atraumatic, bilateral external ears normal, oropharynx moist, no oral exudates, nose normal. [] Eyes: PERRLA, EOMI, conjunctiva normal, no discharge. [] Neck: Normal range of motion, no tenderness, supple, no stridor. [] Cardiovascular:Heart rate regular rhythm, no murmur [] Lungs & Thorax: Bilateral breath sounds clear to auscultation. [] Abdomen: Bowel sounds normal, soft, no tenderness. [] Skin: Warm, dry. [] Back: No tenderness, no CVA tenderness. [] Extremities: No tenderness, no cyanosis, no clubbing, ROM intact, no edema. [] Neurologic: Alert and oriented X 3, CN 2-12, normal motor function, normal sensory function. [] Psychologic: Affect normal, judgement normal, mood normal. [] Current Patient Data Vital Signs Vital Signs Date Time Temp Pulse Resp B/P (MAP) Pulse Ox O2 Delivery O2 Flow Rate FiO2 06/11/18 21:00 94 97 06/11/18 20:20 98.1 18 177/111 (133) Room Air 98.1 EKG EKG [] Radiology/Procedures Radiology/Procedures [] Course & Med Decision Making Course & Med Decision Making Pertinent Labs and Imaging studies reviewed. (See chart for details) [Typical migraine headache. No neurologic deficits. Patient resting comfortably requesting discharge home.] Dragon Disclaimer Dragon Disclaimer This electronic medical record was generated, in whole or in part, using a voice recognition dictation system. Departure Departure Impression: Primary Impression: Migraine headache Disposition: HOME, SELF-CARE Condition: GOOD Referrals: LORI AC (PCP) Patient Instructions: Migraine Headache, [id number] LUPILLO DIAZ DO Jun 12, 2018 00:50
== END 2018-06-11 22:07 | disposition home or self-care (01) ==
LOC: ER 20:15
DX: G43.909 Migraine, unspecified, not intractable, without status migrainosus (principal); I10 Essential (primary) hypertension; K21.9 Gastro-esophageal reflux disease without esophagitis; F32.9 Major depressive disorder, single episode, unspecified; Z88.1 Allergy status to other antibiotic agents; Z88.6 Allergy status to analgesic agent; Z88.8 Allergy status to other drugs, medicaments and biological substances; Z91.013 Allergy to seafood; Z91.018 Allergy to other foods
CPT/HCPCS: 96372; 99284; J1200; J1630

== ENCOUNTER 2018-08-24 01:05 | Emergency (ER) | payer MEDICAID ==
[~2018-08-24] VITALS: Ht 160 cm; Wt 117.9 kg
[2018-08-24 01:10] VITALS: BP 192/123
[2018-08-24] MEDS ORDERED: ONDANSETRON ODT 4 MG TAB.RAPDIS. PO ONE (01:45)
[2018-08-24] MEDS ORDERED: cloNIDine HCL 0.1 MG TABLET PO ONE (01:45)
[2018-08-24] MEDS ORDERED: HYDROcodone/APAP 5/325MG 1 TAB TABLET PO ONE (01:45)
[2018-08-24] MEDS ORDERED: diphenhydrAMINE 50 MG/ML VIAL IM ONE (01:45)
--- NOTE | 2018-08-24 01:56 | PHYS DOC ---
Past Medical History Past Medical History: Depression, GERD, Hypertension, Migraines Additional Past Medical Histor: L OVARY CYST Past Surgical History: Cholecystectomy, , Hysterectomy, Tonsillectomy Additional Past Surgical Histo: partial hysterectomy Alcohol Use: Rarely Drug Use: None Adult General Chief Complaint Chief Complaint: HEADACHE HPI HPI Patient is a 32 year old female with history of migraine headache who presents with complaining of migraine headache. Patient complaining of global throbbing headache since yesterday morning as a constant pain with photophobia and nausea and rated her pain 10 over 10. Patient states she took [id number] Tylenol without improvement of her headache. Patient states she usually comes to emergency room and gets ketamine and Benadryl and IV fluid with improvement of her pain. Patient lives in [place] but comes to this emergency room frequently. Review of Systems Review of Systems Constitutional: Denies fever or chills [] Eyes: Denies change in visual acuity, redness, or eye pain, reports photophobia [] HENT: Denies nasal congestion or sore throat [] Respiratory: Denies cough or shortness of breath [] Cardiovascular: No additional information not addressed in HPI [] GI: Denies abdominal pain, vomiting, bloody stools or diarrhea, reports nausea [] : Denies dysuria or hematuria [] Musculoskeletal: Denies back pain or joint pain [] Integument: Denies rash or skin lesions [] Neurologic: Reports headache, denies focal weakness or sensory changes [] Endocrine: Denies polyuria or polydipsia [] All other systems were reviewed and found to be within normal limits, except as documented in this note. Current Medications Current Medications Current Medications Medications (Trade) Dose Ordered Sig/Mia Start Time Stop Time Status Last Admin Dose Admin Acetaminophen/ Hydrocodone Bitart (Lortab 5/325) 1 tab 1X ONCE 08/24/18 01:45 08/24/18 01:46 DC 08/24/18 01:47 1 TAB Clonidine HCl (Catapres) 0.2 mg 1X ONCE 08/24/18 01:45 08/24/18 01:46 DC Diphenhydramine HCl (Benadryl) 50 mg 1X ONCE 08/24/18 01:45 08/24/18 01:46 DC 08/24/18 01:48 50 MG Ondansetron HCl (Zofran Odt) 4 mg 1X ONCE 08/24/18 01:45 08/24/18 01:46 DC 08/24/18 01:48 4 MG Allergies Allergies Allergies Coded Allergies Type Severity Reaction Last Updated Verified cephalexin Allergy Severe TURN BLUE 10/01/16 Yes coconut Allergy Intermediate hives 10/01/16 Yes ibuprofen Allergy Intermediate ASTHMA 10/01/16 Yes mushroom Allergy Intermediate hives 10/01/16 Yes tramadol Allergy Intermediate Hives 08/09/16 Yes Physical Exam Physical Exam Constitutional: Well developed, well nourished, mild distress, non-toxic appearance. [] HENT: Normocephalic, atraumatic, bilateral external ears normal, oropharynx moist, no oral exudates, nose normal. [] Eyes: PERRLA, EOMI, conjunctiva normal, no discharge. [] Neck: Normal range of motion, no tenderness, supple, no stridor. [] Cardiovascular:Heart rate regular rhythm, no murmur [] Lungs & Thorax: Bilateral breath sounds clear to auscultation [] Skin: Warm, dry, no erythema, no rash. [] Back: No tenderness, no CVA tenderness. [] Extremities: No tenderness, no cyanosis, no clubbing, ROM intact, no edema. [] Neurologic: Alert and oriented X 3, normal motor function, normal sensory function, no focal deficits noted. [] Psychologic: Affect normal, judgement normal, mood normal. [] Current Patient Data Vital Signs Vital Signs Date Time Temp Pulse Resp B/P (MAP) Pulse Ox O2 Delivery O2 Flow Rate FiO2 08/24/18 01:47 16 98 Room Air 08/24/18 01:10 97.9 18 192/123 (146) 97.9 EKG EKG [] Radiology/Procedures Radiology/Procedures [] Course & Med Decision Making Course & Med Decision Making Evaluation of patient in ER showed 32-year-old female patient with history of migraine headaches presented to ER with complaining of headache like her previous episodes of migraine headache. Patient had unremarkable physical exam. Patient had blood pressure of 190/120 at arrival to ER that decreased to 150s over 90s without treatment. Patient asking for ketamine and Benadryl and IV fluids like her previous ER visits in this emergency room. Patient treated with IM Benadryl and PO [place] and Zofran with improvement of her condition. Patient was advised to follow-up with her neurologist or primary care physician for current migraine headache. Dragon Disclaimer Dragon Disclaimer This electronic medical record was generated, in whole or in part, using a voice recognition dictation system. Departure Departure Impression: Primary Impression: Migraine headache Additional Impressions: Nausea Uncontrolled hypertension Disposition: HOME, SELF-CARE (at 0221) Condition: IMPROVED Referrals: LORI AC (PCP) Patient Instructions: Migraine Headache Additional Instructions: Drink plenty of liquids Follow-up with your primary care physician in 3-5 days Return to ER if not getting better Scripts Ondansetron Hcl (ZOFRAN) 4 Mg Tablet 1 TAB PO PRN Q6-8HRS for nausea, #12 TAB Prov: YESI HEDRICK MD 08/24/18 Problem Qualifiers Primary Impression: Migraine headache Migraine type: unspecified Status migrainosus presence: without status migrainosus Intractability: not intractable Qualified Codes: G43.909 - Migraine, unspecified, not intractable, without status migrainosus YESI HEDRICK MD Aug 24, 2018 01:56
[2018-08-24] MEDS ORDERED: ONDA4TAB7 PO (02:23)
== END 2018-08-24 02:25 | disposition home or self-care (01) ==
LOC: ER 01:05
DX: G43.909 Migraine, unspecified, not intractable, without status migrainosus (principal); F32.9 Major depressive disorder, single episode, unspecified; I10 Essential (primary) hypertension; K21.9 Gastro-esophageal reflux disease without esophagitis; Z88.1 Allergy status to other antibiotic agents; Z88.6 Allergy status to analgesic agent; Z88.8 Allergy status to other drugs, medicaments and biological substances; Z91.018 Allergy to other foods
CPT/HCPCS: 96372; 99283; J1200; Q0162

== ENCOUNTER 2018-11-16 19:40 | Emergency (ER) | payer MEDICAID ==
[~2018-11-16] VITALS: Ht 160 cm; Wt 97.5 kg
[~2018-11-16 19:40] MED LIST changes: +ONDA4TAB7 PO
[2018-11-16 21:48] LABS: BILIRUBIN,URINE NEGATIVE (NEG); CLARITY,URINE CLEAR; COLOR,URINE YELLOW; NITRITE,URINE NEGATIVE (NEG); PROTEIN,URINE NEGATIVE (NEG-TRACE)
[2018-11-16 21:53] LABS: RBC,URINE 0 /HPF (0-2); SQUAMOUS EPITHELIAL CELL,UR MOD /LPF; WBC,URINE RARE /HPF (0-4)
[2018-11-16 21:54] LABS: BACTERIA,URINE FEW /HPF (0-FEW)
[2018-11-16] MEDS ORDERED: oxyCODONE/APAP 5/325 1 TAB TABLET PO ONE (22:00)
--- NOTE | 2018-11-16 22:30 | RAD ---
Indication:Lower pelvic pain. History of ovarian cyst. TECHNIQUE: Grayscale, color Doppler and spectral waveform images of the pelvis obtained. COMPARISON: 03/30/2018. FINDINGS: Status post hysterectomy. Left ovary measures 3.8 x 3.0 x 3.0 cm with multiple follicles and shows evidence of blood flow. There is a hypoechoic lesion in the left ovary measuring 2.2 x 2.2 x 1.8 cm without internal vascularity. Right ovary measures 2.8 x 3.7 x 3.1 cm and shows evidence of blood flow. Trace free pelvic fluid. IMPRESSION: 1. Complicated cysts in the left ovary likely hemorrhagic cyst.. Follow-up Ultrasound in 8-10 weeks recommended. 2. Both ovaries show evidence of blood flow.. Electronically signed by: Antonio Barrios DO (11/16/2018 10:26 PM) [facility]
[2018-11-16 22:52] LABS: BASO # 0.1 x10^3/uL (0.0-0.2); BASO % 1 % (0-3); EOS # 0.1 x10^3/uL (0.0-0.7); EOS % 2 % (0-3); HEMATOCRIT 39.8 % (36.0-47.0); HEMOGLOBIN 13.7 g/dL (12.0-15.5); LYMPH # 2.5 x10^3/uL (1.0-4.8); LYMPH % 34 % (24-48); MEAN CORPUSCULAR HEMOGLOBIN 29 pg (25-35); MEAN CORPUSCULAR HGB CONC 35 g/dL (31-37); MEAN CORPUSCULAR VOLUME 85 fL (79-100); MONO # 0.5 x10^3/uL (0.0-1.1); MONO % 7 % (0-9); NEUT # 4.1 x10^3/uL (1.8-7.7); NEUT % 56 % (31-73); PLATELET COUNT 228 x10^3/uL (140-400); WHITE BLOOD COUNT 7.3 x10^3/uL (4.0-11.0)
[2018-11-16 23:01] LABS: CALCIUM 9.2 mg/dL (8.5-10.1); CREATININE 0.8 mg/dL (0.6-1.0); GFR 83.7; POTASSIUM 3.5 mmol/L (3.5-5.1)
[2018-11-16] MEDS ORDERED: OXYC1TAB15 PO (23:02)
--- NOTE | 2018-11-16 23:06 | PHYS DOC ---
Past Medical History Past Medical History: Depression, GERD, Hypertension, Migraines Additional Past Medical Histor: L OVARY CYST Past Surgical History: Cholecystectomy, , Hysterectomy, Tonsillectomy Additional Past Surgical Histo: partial hysterectomy Alcohol Use: Rarely Drug Use: None Adult General Chief Complaint Chief Complaint: ABDOMINAL PAIN HPI HPI Patient is a 33 year old female presents with 2 days of lower pelvic pain described as sharp feels likes prior ovarian cysts pain. Suprapubic radiates to the right side as well as to the left side. No vaginal discharge did have some spotting a couple of days ago. No fever still able to eat and drink. Apparently she had a hysterectomy 2 years back due to what sounds that placental abruption she still has both ovaries however no other previous surgical history in the abdomen. She does have frequent ER visits for migraine as well as ovarian cyst related pain she says this feels similar to prior ovarian cysts pain. Often times when she has an ovarian cyst on one side she tells me she actually feels the pain on the opposite side she says this is how it has been ever since she was a little kid. Review of Systems Review of Systems Constitutional: Denies fever or chills [] Eyes: Denies change in visual acuity, redness, or eye pain [] HENT: Denies nasal congestion or sore throat [] Respiratory: Denies cough or shortness of breath [] Cardiovascular: No additional information not addressed in HPI [] GI: Denies abdominal pain, nausea, vomiting, bloody stools or diarrhea [] : Denies dysuria or hematuria [] Musculoskeletal: Denies back pain or joint pain [] Integument: Denies rash or skin lesions [] Neurologic: Denies headache, focal weakness or sensory changes [] Endocrine: Denies polyuria or polydipsia [] All other systems were reviewed and found to be within normal limits, except as documented in this note. Current Medications Current Medications Current Medications Medications (Trade) Dose Ordered Sig/Mai Start Time Stop Time Status Last Admin Dose Admin Oxycodone/ Acetaminophen (Percocet 5/325) 2 tab 1X ONCE 11/16/18 22:00 11/16/18 22:01 DC 11/16/18 21:49 2 TAB Allergies Allergies Allergies Coded Allergies Type Severity Reaction Last Updated Verified cephalexin Allergy Severe TURN BLUE 10/01/16 Yes coconut Allergy Intermediate hives 10/01/16 Yes ibuprofen Allergy Intermediate ASTHMA 10/01/16 Yes mushroom Allergy Intermediate hives 10/01/16 Yes tramadol Allergy Intermediate Hives 08/09/16 Yes Physical Exam Physical Exam Constitutional: Well developed, well nourished, no acute distress, non-toxic appearance. [] HENT: Normocephalic, atraumatic, bilateral external ears normal, oropharynx moist, no oral exudates, nose normal. [] Eyes: PERRLA, EOMI, conjunctiva normal, no discharge. [] Neck: Normal range of motion, no tenderness, supple, no stridor. [] Pulmonary: Normal respiratory effort no increased work of breathing no obvious chest wall trauma Abdomen: Bowel sounds normal, soft, suprapubic tenderness as well as some right inguinal and left inguinal area tenderness there is no tenderness at McBurney's point at this time Skin: Warm, dry, no erythema, no rash. [] Back: No tenderness, no CVA tenderness. [] Extremities: No tenderness, no cyanosis, no clubbing, ROM intact, no edema. [] Neurologic: Alert and oriented X 3, normal motor function, normal sensory function, no focal deficits noted. [] Psychologic: Affect normal, judgement normal, mood normal. [] Current Patient Data Vital Signs Vital Signs Date Time Temp Pulse Resp B/P (MAP) Pulse Ox O2 Delivery O2 Flow Rate FiO2 11/16/18 21:49 16 98 Room Air 11/16/18 20:52 98.8 76 178/119 (138) 98.8 Lab Values Laboratory Tests Test 11/16/18 19:45 11/16/18 22:15 Urine Collection Type Unknown Urine Color Yellow Urine Clarity Clear Urine pH 6.0 Urine Specific [place] 1.020 Urine Protein Negative mg/dL (NEG-TRACE) Urine Glucose (UA) Negative mg/dL (NEG) Urine Ketones (Stick) Negative mg/dL (NEG) Urine Blood Negative (NEG) Urine Nitrite Negative (NEG) Urine Bilirubin Negative (NEG) Urine Urobilinogen Dipstick 1.0 mg/dL (0.2 mg/dL) Urine Leukocyte Esterase Negative (NEG) Urine RBC 0 /HPF (0-2) Urine WBC Rare /HPF (0-4) Urine Squamous Epithelial Cells Mod /LPF Urine Bacteria Few /HPF (0-FEW) Urine Mucus Slight /LPF White Blood Count 7.3 x10^3/uL (4.0-11.0) Red Blood Count 4.70 x10^6/uL (3.50-5.40) Hemoglobin 13.7 g/dL (12.0-15.5) Hematocrit 39.8 % (36.0-47.0) Mean Corpuscular Volume 85 fL (79-100) Mean Corpuscular Hemoglobin 29 pg (25-35) Mean Corpuscular Hemoglobin Concent 35 g/dL (31-37) Red Cell Distribution Width 14.0 % (11.5-14.5) Platelet Count 228 x10^3/uL (140-400) Neutrophils (%) (Auto) 56 % (31-73) Lymphocytes (%) (Auto) 34 % (24-48) Monocytes (%) (Auto) 7 % (0-9) Eosinophils (%) (Auto) 2 % (0-3) Basophils (%) (Auto) 1 % (0-3) Neutrophils # (Auto) 4.1 x10^3/uL (1.8-7.7) Lymphocytes # (Auto) 2.5 x10^3/uL (1.0-4.8) Monocytes # (Auto) 0.5 x10^3/uL (0.0-1.1) Eosinophils # (Auto) 0.1 x10^3/uL (0.0-0.7) Basophils # (Auto) 0.1 x10^3/uL (0.0-0.2) Laboratory Tests 11/16/18 22:15 EKG EKG [] Radiology/Procedures Radiology/Procedures [] Impressions: FINDINGS: Status post hysterectomy. Left ovary measures 3.8 x 3.0 x 3.0 cm with multiple follicles and shows evidence of blood flow. There is a hypoechoic lesion in the left ovary measuring 2.2 x 2.2 x 1.8 cm without internal vascularity. Right ovary measures 2.8 x 3.7 x 3.1 cm and shows evidence of blood flow. Trace free pelvic fluid. IMPRESSION: 1. Complicated cysts in the left ovary likely hemorrhagic cyst.. Follow-up Ultrasound in 8-10 weeks recommended. 2. Both ovaries show evidence of blood flow.. Electronically signed by: Antonio Cazares DO (11/16/2018 10:26 PM) [facility] DICTATED and SIGNED BY: ANTONIO CAZARES DO DATE: 11/16/182225 Course & Med Decision Making Course & Med Decision Making Pertinent Labs and Imaging studies reviewed. (See chart for details) []33-year-old female frequent ER visits known ovarian cyst disease presenting with lower abdominal discomfort for the last 2 days says her pain is very similar to known ovarian cysts ultrasound confirms presence of left hemorrhagic ovarian cyst likely etiology of pain given her presentation and description of her symptoms. I considered appendicitis I don't think it is likely I recommended she come back should she have migraine pain worsening pain and fever unable to eat or drink or any other symptoms or concerns or not improving as expected she is agreeable to the plan. Follow up with OB next week for further evaluation and repeat ultrasound in 8 weeks she was given these instructions and she under stands. Dragon Disclaimer Dragon Disclaimer This electronic medical record was generated, in whole or in part, using a voice recognition dictation system. Departure Departure Impression: Primary Impression: Ovarian cyst Disposition: 01 HOME, SELF-CARE Condition: STABLE Referrals: LORI AC (PCP) Patient Instructions: Ovarian Cyst, [id number] Additional Instructions: RETURN TO ER IN 24 HOURS FOR INCREASING PAIN, MIGRATING PAIN, FEVER UNABLE TO EAT OR DRINK OR ANY NEW SYMPTOMS OR CONCERNS. GET REPEAT ULTRASOUND IN 8 WEEKS Scripts Oxycodone/Apap 5-325 (PERCOCET 5-325 MG TABLET ) 1 Each Tablet 1-2 EACH PO PRN TID PRN for PAIN, #15 TAB pain Prov: REBEL FRANCISCO MD 11/16/18 REBEL FRANCISCO MD Nov 16, 2018 23:06
[2018-11-16 23:07] LABS: ALBUMIN 3.7 g/dL (3.4-5.0); ALBUMIN/GLOBULIN RATIO 1.1 (1.0-1.7); TOTAL BILIRUBIN 0.3 mg/dL (0.2-1.0); TOTAL PROTEIN 7.2 g/dL (6.4-8.2)
[2018-11-16 23:25] VITALS: BP 126/78
== END 2018-11-16 23:25 | disposition home or self-care (01) ==
LOC: ER 19:40
DX: N83.202 Unspecified ovarian cyst, left side (principal); F32.9 Major depressive disorder, single episode, unspecified; K21.9 Gastro-esophageal reflux disease without esophagitis; I10 Essential (primary) hypertension; G43.909 Migraine, unspecified, not intractable, without status migrainosus; Z90.49 Acquired absence of other specified parts of digestive tract; Z98.890 Other specified postprocedural states; Z90.710 Acquired absence of both cervix and uterus; Z90.89 Acquired absence of other organs; Z88.1 Allergy status to other antibiotic agents; Z88.6 Allergy status to analgesic agent; Z88.5 Allergy status to narcotic agent; Z91.018 Allergy to other foods
CPT/HCPCS: 36415; 76830; 76856; 80053; 81001; 85025; 99285

== ENCOUNTER 2019-01-16 19:10 | Emergency (ER) | payer MEDICAID ==
[~2019-01-16] VITALS: Ht 160 cm; Wt 99.8 kg
[2019-01-16 20:13] LABS: BILIRUBIN,URINE NEGATIVE (NEG); CLARITY,URINE CLEAR; COLOR,URINE YELLOW; NITRITE,URINE NEGATIVE (NEG); PH,URINE 7.5; PROTEIN,URINE NEGATIVE (NEG-TRACE)
[2019-01-16] MEDS ORDERED: IV NORMAL SALINE 1000ML BAG 1,000 ML IV ONE (20:15)
[2019-01-16] MEDS ORDERED: fentaNYL PF VIAL 100 MCG/2 ML VIAL IVP ONE (20:15)
[2019-01-16 20:19] LABS: BARBITURATES NEG (NEG); BENZODIAZEPINES NEG (NEG); CANNABINOIDS POS (NEG); COCAINE NEG (NEG); METHADONE NEG (NEG); OPIATES POS (NEG); PHENCYCLIDINE NEG (NEG)
[2019-01-16 20:23] LABS: AMPHETAMINE/METHAMPHETAMINE NEG (NEG)
[2019-01-16 20:24] LABS: BACTERIA,URINE FEW /HPF (0-FEW); RBC,URINE 0 /HPF (0-2); SQUAMOUS EPITHELIAL CELL,UR MANY /LPF
--- NOTE | 2019-01-16 20:41 | PHYS DOC ---
Past Medical History Past Medical History: Depression, GERD, Hypertension, Migraines, Ovarian Cyst Additional Past Medical Histor: L OVARY CYST Past Surgical History: Cholecystectomy, , Hysterectomy, Tonsillectomy Additional Past Surgical Histo: partial hysterectomy Alcohol Use: Rarely Drug Use: None Adult General Chief Complaint Chief Complaint: ABDOMINAL PAIN HPI HPI Patient is a 33 year old female who presents with lower abdominal pain but states is more so on the right side. She states started 4:30 this morning and is stabbing and sharp. Patient states that she does have a history of ovarian cysts but this feels worse than that. Patient states she took 2 500 mg Tylenols at 1500 today. Review of Systems Review of Systems GI: lower abdominal pain, denies nausea, vomiting, bloody stools or diarrhea [] All other systems were reviewed and found to be within normal limits, except as documented in this note. Current Medications Current Medications Current Medications Medications (Trade) Dose Ordered Sig/Mia Start Time Stop Time Status Last Admin Dose Admin Acetaminophen/ Hydrocodone Bitart (Lortab 5/325) 1 tab 1X ONCE 01/16/19 22:30 01/16/19 22:31 01/16/19 22:27 1 TAB Fentanyl Citrate (Fentanyl 2ml Vial) 50 mcg 1X ONCE 01/16/19 20:15 01/16/19 20:16 DC 01/16/19 20:21 50 MCG Ondansetron HCl (Zofran Odt) 4 mg 1X ONCE 01/16/19 22:00 01/16/19 22:01 DC 01/16/19 22:07 4 MG Potassium Chloride (Klor-Con) 20 meq 1X ONCE 01/16/19 22:00 01/16/19 22:01 DC 01/16/19 22:07 20 MEQ Sodium Chloride 1,000 ml @ 1,000 mls/hr 1X ONCE 01/16/19 20:15 01/16/19 21:14 DC 01/16/19 20:21 1,000 MLS/HR Allergies Allergies Allergies Coded Allergies Type Severity Reaction Last Updated Verified cephalexin Allergy Severe TURN BLUE 10/01/16 Yes coconut Allergy Intermediate hives 10/01/16 Yes ibuprofen Allergy Intermediate ASTHMA 10/01/16 Yes mushroom Allergy Intermediate hives 10/01/16 Yes tramadol Allergy Intermediate Hives 08/09/16 Yes Physical Exam Physical Exam Constitutional: Well developed, well nourished, no acute distress, non-toxic appearance. [] HENT: Normocephalic, atraumatic, bilateral external ears normal, oropharynx moist, no oral exudates, nose normal. [] Eyes: PERRLA, EOMI, conjunctiva normal, no discharge. [] Neck: Normal range of motion, no tenderness, supple, no stridor. [] Cardiovascular:Heart rate regular rhythm, no murmur [] Lungs & Thorax: Bilateral breath sounds clear to auscultation [] Abdomen: Bowel sounds normal, soft, low mid tenderness, no masses, no pulsatile masses. [] Skin: Warm, dry, no erythema, no rash. [] Back: No tenderness, no CVA tenderness. [] Extremities: No tenderness, no cyanosis, no clubbing, ROM intact, no edema. [] Neurologic: Alert and oriented X 3, normal motor function, normal sensory function, no focal deficits noted. [] Psychologic: Affect normal, judgement normal, mood normal. [] Current Patient Data Vital Signs Vital Signs Date Time Temp Pulse Resp B/P (MAP) Pulse Ox O2 Delivery O2 Flow Rate FiO2 01/16/19 22:27 Room Air 01/16/19 21:36 75 14 107/68 (81) 100 01/16/19 19:10 98.9 98.9 Lab Values Laboratory Tests Test 01/16/19 19:50 01/16/19 20:20 Urine Collection Type Unknown Urine Color Yellow Urine Clarity Clear Urine pH 7.5 Urine Specific [place] 1.020 Urine Protein Negative mg/dL (NEG-TRACE) Urine Glucose (UA) Negative mg/dL (NEG) Urine Ketones (Stick) Negative mg/dL (NEG) Urine Blood Negative (NEG) Urine Nitrite Negative (NEG) Urine Bilirubin Negative (NEG) Urine Urobilinogen Dipstick 1.0 mg/dL (0.2 mg/dL) Urine Leukocyte Esterase Negative (NEG) Urine RBC 0 /HPF (0-2) Urine WBC 1-4 /HPF (0-4) Urine Squamous Epithelial Cells Many /LPF Urine Bacteria Few /HPF (0-FEW) Urine Mucus Marked /LPF Urine Opiates Screen Pos (NEG) Urine Methadone Screen Neg (NEG) Urine Barbiturates Neg (NEG) Urine Phencyclidine Screen Neg (NEG) Urine Amphetamine/Methamphetamine Neg (NEG) Urine Benzodiazepines Screen Neg (NEG) Urine Cocaine Screen Neg (NEG) Urine Cannabinoids Screen Pos (NEG) Urine Ethyl Alcohol Neg (NEG) White Blood Count 7.7 x10^3/uL (4.0-11.0) Red Blood Count 4.20 x10^6/uL (3.50-5.40) Hemoglobin 12.6 g/dL (12.0-15.5) Hematocrit 37.2 % (36.0-47.0) Mean Corpuscular Volume 89 fL (79-100) Mean Corpuscular Hemoglobin 30 pg (25-35) Mean Corpuscular Hemoglobin Concent 34 g/dL (31-37) Red Cell Distribution Width 14.4 % (11.5-14.5) Platelet Count 227 x10^3/uL (140-400) Neutrophils (%) (Auto) 54 % (31-73) Lymphocytes (%) (Auto) 34 % (24-48) Monocytes (%) (Auto) 8 % (0-9) Eosinophils (%) (Auto) 3 % (0-3) Basophils (%) (Auto) 1 % (0-3) Neutrophils # (Auto) 4.2 x10^3/uL (1.8-7.7) Lymphocytes # (Auto) 2.6 x10^3/uL (1.0-4.8) Monocytes # (Auto) 0.6 x10^3/uL (0.0-1.1) Eosinophils # (Auto) 0.2 x10^3/uL (0.0-0.7) Basophils # (Auto) 0.1 x10^3/uL (0.0-0.2) Sodium Level 141 mmol/L (136-145) Potassium Level 3.2 mmol/L (3.5-5.1) L Chloride Level 103 mmol/L (98-107) Carbon Dioxide Level 32 mmol/L (21-32) Anion Gap 6 (6-14) Blood Urea Nitrogen 9 mg/dL (7-20) Creatinine 0.8 mg/dL (0.6-1.0) Estimated GFR (Cockcroft-Gault) 83.7 BUN/Creatinine Ratio 11 (6-20) Glucose Level 91 mg/dL (70-99) Calcium Level 8.7 mg/dL (8.5-10.1) Total Bilirubin 0.3 mg/dL (0.2-1.0) Aspartate Amino Transferase (AST) 16 U/L (15-37) Alanine Aminotransferase (ALT) 23 U/L (14-59) Alkaline Phosphatase 75 U/L (46-116) Total Protein 7.3 g/dL (6.4-8.2) Albumin 3.5 g/dL (3.4-5.0) Albumin/Globulin Ratio 0.9 (1.0-1.7) L Lipase 100 U/L (73-393) Laboratory Tests 01/16/19 20:20 Laboratory Tests 01/16/19 20:20 EKG EKG [] Radiology/Procedures Radiology/Procedures [] Impressions: [facility] [address] [place] [address] IMAGING REPORT Signed PATIENT: TARUN THOMPSON ACCOUNT: [id number] : 1985 LOCATION: ER AGE: 33 SEX: F EXAM STATUS: REG ER ORD. PHYSICIAN: LES ZAMORA APRN REASON: RIGHT LOWER ABD PAIN. HX OVARIAN CYST ON LEFT AND RIGHT, RULE OUT APPY PROCEDURE: PELVIS W/TV Pelvic ultrasound to include transabdominal and transvaginal imaging January 14, 2019 CLINICAL HISTORY: Right lower quadrant abdominal and pelvic pain. TECHNIQUE: Using the distended urinary bladder as a sonographic window, a real-time ultrasound examination of the pelvis was performed. Additionally in an attempt to better evaluate the uterus and adnexa, a transvaginal ultrasound study was performed. Additionally a limited real-time ultrasound examination of the right lower quadrant abdomen was performed. Multiple images were obtained. FINDINGS: Comparison study is dated 11/16/2018. The patient is post hysterectomy. Both ovaries are within normal limits in size. Right ovary measures 3.9 x 2.8 x 2.4 cm in size. Left ovary measures 2.8 x 2.3 x 1.9 cm in size. Follicles are seen involving both ovaries which measure 5 mm to 1.4 cm in size. Normal color-flow and pulse Doppler imaging to both ovaries is seen. A small amount of free fluid is seen within the pelvis. Limited ultrasound evaluation of the right lower quadrant of the abdomen is within normal limits. The appendix is not visualized. Normal peristalsing bowel loops are seen. No free fluid is noted. IMPRESSION: 1. Post hysterectomy. 2. Small amount of free fluid is seen within the pelvis. 3. Otherwise negative study. Electronically signed by: Bruce Gordon MD (01/16/2019 10:26 PM) [facility] DICTATED and SIGNED BY: BRUCE GORDON MD DATE: 01/16/192225 Course & Med Decision Making Course & Med Decision Making Patient is a 33 year old female who presents with lower abdominal pain but states is more so on the right side. She states started 4:30 this morning and is stabbing and sharp. Patient states that she does have a history of ovarian cysts but this feels worse than that. Patient states she took 2 500 mg Tylenols at 1500 today. Abdomen is soft and slightly tender to the mid lower abdomen area. There is no rebound tenderness on the right lower side. She denies constipation or diarrhea, nausea, vomiting, chest pain, shortness of air, fever, dysuria, vaginal discharge, headache, dizziness. Ambulatory with steady gait. Skin pink warm and dry. Lungs clear in all lobes. Vital signs within normal limits. Afebrile. Speaks in full clear sentences. oracle technical developer states that her ovaries are unremarkable but she was unable to see the appendix due to the patient having a lot of stool in her bowels. Patient is well-known to this facility for her abdominal pain that has gotten many prescriptions for narcotics. Blood work is unremarkable. Urinalysis is positive for marijuana. Patient will be sent home to follow up with her primary care doctor and I will send her home with a prescription for a stool softener. US shows IMPRESSION: 1. Post hysterectomy. 2. Small amount of free fluid is seen within the pelvis. 3. Otherwise negative study. Dragon Disclaimer Dragon Disclaimer This electronic medical record was generated, in whole or in part, using a voice recognition dictation system. Departure Departure Impression: Primary Impression: Abdominal pain Additional Impression: Ovarian cyst Disposition: 01 HOME, SELF-CARE Condition: STABLE Referrals: JUMANA PARSONS MD (PCP) Patient Instructions: Abdominal Pain (Nonspecific), Constipation, Adult Additional Instructions: Follow-up with her primary care provider. Drink a lot of fluids and take medication as prescribed. Try to stay away from narcotics as they are constipating. Scripts Hydrocodone/Apap 5-325 (NORCO 5-325 TABLET) 1 Each Tablet 1 TAB PO PRN Q6HRS PRN for PAIN, #4 TAB 0 Refills Prov: LES ZAMORA APRN 01/16/19 Sennosides/Docusate Sodium (SENNOSIDES-DOCUSATE SODIUM TAB) 1 Each Tablet 1 EACH PO BID for 5 Days, #10 TAB Prov: LES ZAMORA APRN 01/16/19 Problem Qualifiers Primary Impression: Abdominal pain Abdominal location: right lower quadrant Qualified Codes: R10.31 - Right lower quadrant pain Additional Impression: Ovarian cyst Laterality: right Qualified Codes: N83.201 - Unspecified ovarian cyst, right side LES ZAMORA APRN Jan 16, 2019 20:41
[2019-01-16 20:43] LABS: BASO # 0.1 x10^3/uL (0.0-0.2); BASO % 1 % (0-3); EOS # 0.2 x10^3/uL (0.0-0.7); EOS % 3 % (0-3); HEMATOCRIT 37.2 % (36.0-47.0); HEMOGLOBIN 12.6 g/dL (12.0-15.5); LYMPH # 2.6 x10^3/uL (1.0-4.8); LYMPH % 34 % (24-48); MEAN CORPUSCULAR HEMOGLOBIN 30 pg (25-35); MEAN CORPUSCULAR HGB CONC 34 g/dL (31-37); MEAN CORPUSCULAR VOLUME 89 fL (79-100); MONO # 0.6 x10^3/uL (0.0-1.1); MONO % 8 % (0-9); NEUT # 4.2 x10^3/uL (1.8-7.7); NEUT % 54 % (31-73); PLATELET COUNT 227 x10^3/uL (140-400); RED CELL DISTRIBUTION WIDTH 14.4 % (11.5-14.5); WHITE BLOOD COUNT 7.7 x10^3/uL (4.0-11.0)
[2019-01-16 20:56] LABS: CALCIUM 8.7 mg/dL (8.5-10.1); CREATININE 0.8 mg/dL (0.6-1.0); GFR 83.7; POTASSIUM 3.2 mmol/L (3.5-5.1)
[2019-01-16 21:03] LABS: ALBUMIN 3.5 g/dL (3.4-5.0); ALBUMIN/GLOBULIN RATIO 0.9 (1.0-1.7); TOTAL BILIRUBIN 0.3 mg/dL (0.2-1.0); TOTAL PROTEIN 7.3 g/dL (6.4-8.2)
[2019-01-16] MEDS ORDERED: SENN1TAB37 PO (21:43)
[2019-01-16] MEDS ORDERED: HYDR-3164 PO (21:43)
[2019-01-16] MEDS ORDERED: POTASSIUM CHLORIDE 20 MEQ TABLET.ER. PO ONE (22:00)
[2019-01-16] MEDS ORDERED: ONDANSETRON ODT 4 MG TAB.RAPDIS. PO ONE (22:00)
[2019-01-16 22:06] VITALS: BP 117/72
--- NOTE | 2019-01-16 22:29 | RAD ---
Pelvic ultrasound to include transabdominal and transvaginal imaging January 14, 2019 CLINICAL HISTORY: Right lower quadrant abdominal and pelvic pain. TECHNIQUE: Using the distended urinary bladder as a sonographic window, a real-time ultrasound examination of the pelvis was performed. Additionally in an attempt to better evaluate the uterus and adnexa, a transvaginal ultrasound study was performed. Additionally a limited real-time ultrasound examination of the right lower quadrant abdomen was performed. Multiple images were obtained. FINDINGS: Comparison study is dated 11/16/2018. The patient is post hysterectomy. Both ovaries are within normal limits in size. Right ovary measures 3.9 x 2.8 x 2.4 cm in size. Left ovary measures 2.8 x 2.3 x 1.9 cm in size. Follicles are seen involving both ovaries which measure 5 mm to 1.4 cm in size. Normal color-flow and pulse Doppler imaging to both ovaries is seen. A small amount of free fluid is seen within the pelvis. Limited ultrasound evaluation of the right lower quadrant of the abdomen is within normal limits. The appendix is not visualized. Normal peristalsing bowel loops are seen. No free fluid is noted. IMPRESSION: 1. Post hysterectomy. 2. Small amount of free fluid is seen within the pelvis. 3. Otherwise negative study. Electronically signed by: Bruce Gordon MD (01/16/2019 10:26 PM) [facility]
[2019-01-16] MEDS ORDERED: HYDROcodone/APAP 5/325MG 1 TAB TABLET PO ONE (22:30)
== END 2019-01-16 22:39 | disposition home or self-care (01) ==
LOC: ER 19:10
DX: N83.201 Unspecified ovarian cyst, right side (principal); K21.9 Gastro-esophageal reflux disease without esophagitis; I10 Essential (primary) hypertension; G43.909 Migraine, unspecified, not intractable, without status migrainosus; F32.9 Major depressive disorder, single episode, unspecified; Z90.49 Acquired absence of other specified parts of digestive tract; Z90.711 Acquired absence of uterus with remaining cervical stump; Z88.1 Allergy status to other antibiotic agents; Z88.6 Allergy status to analgesic agent; Z91.018 Allergy to other foods; Z88.8 Allergy status to other drugs, medicaments and biological substances
CPT/HCPCS: 36415; 76830; 76856; 80053; 80307; 81001; 83690; 85025; 96374; 99285; J3010; J7030; Q0162

== ENCOUNTER 2019-12-02 14:17 | Emergency (ER) | payer MEDICAID ==
[~2019-12-02] VITALS: Ht 160 cm; Wt 100.0 kg
[~2019-12-02 14:17] MED LIST changes: -NIFE60TA16 PO; +NIFE60TA90 PO; +SENN1TAB37 PO
[2019-12-02 14:45] VITALS: BP 150/87
--- NOTE | 2019-12-02 14:49 | PHYS DOC ---
Past Medical History Past Medical History: Depression, GERD, Hypertension, Migraines, Ovarian Cyst Additional Past Medical Histor: L OVARY CYST (CAROLLES LEAF BLENDER) Past Surgical History: Cholecystectomy, , Hysterectomy, Tonsillectomy Additional Past Surgical Histo: partial hysterectomy (CAROLLES M LEAF BLENDER) Smoking Status: Current Every Day Smoker Alcohol Use: Rarely Drug Use: None (LES ZAMORA LEAF BLENDER) General Adult EDM: Chief Complaint: VAGINAL BLEEDING HPI: HPI: Patient is a 34 year old female who presents with this afternoon began having severe lower abdominal cramping. She states that she went to the bathroom and she urinated and when she went to wipe there was blood on the toilet paper. She states that she has had a partial hysterectomy and so she does not have periods. She states that her pain at this time is a 10 out of 10. Patient denies fever, dysuria symptoms, back pain, nausea, vomiting, diarrhea, chest pain, shortness of breath, constipation, headache, dizziness, numbness or tingling, focal weakness. She has a history of migraine, hypertension, GERD, depression, ovarian cysts, cholecystectomy, partial hysterectomy, , smoker. (LES ZAMORA LEAF BLENDER) Review of Systems: Review of Systems: Constitutional: Denies fever or chills. [] Eyes: Denies change in visual acuity. [] HENT: Denies nasal congestion or sore throat. [] Respiratory: Denies cough or shortness of breath. [] Cardiovascular: Denies chest pain or edema. [] GI: +abdominal pain, denies nausea, vomiting, bloody stools or diarrhea. [] : Denies dysuria. +Vaginal bleeding [] Musculoskeletal: Denies back pain or joint pain. [] Integument: Denies rash. [] Neurologic: Denies headache, focal weakness or sensory changes. [] Endocrine: Denies polyuria or polydipsia. [] Lymphatic: Denies swollen glands. [] Psychiatric: Denies depression or anxiety. [] (LES ZAMORA LEAF BLENDER) Heart Score: Risk Factors: Risk Factors: DM, Current or recent (<one month) smoker, HTN, HLP, family history of CAD, obesity. Risk Scores: Score 0 - 3: 2.5% MACE over next 6 weeks - Discharge Home Score 4 - 6: 20.3% MACE over next 6 weeks - Admit for Clinical Observation Score 7 - 10: 72.7% MACE over next 6 weeks - Early Invasive Strategies (LES ZAMORA APRN) Allergies: Allergies: Allergies Coded Allergies Type Severity Reaction Last Updated Verified cephalexin Allergy Severe TURN BLUE 10/01/16 Yes coconut Allergy Intermediate hives 10/01/16 Yes ibuprofen Allergy Intermediate ASTHMA 10/01/16 Yes mushroom Allergy Intermediate hives 10/01/16 Yes tramadol Allergy Intermediate Hives 08/09/16 Yes (LES ZAMORA APRN) Physical Exam: PE: Constitutional: Well developed, well nourished, no acute distress, non-toxic appearance. [] HENT: Normocephalic, atraumatic, bilateral external ears normal, oropharynx moist, no oral exudates, nose normal. [] Eyes: PERRLA, EOMI, conjunctiva normal, no discharge. [] Neck: Normal range of motion, no tenderness, supple, no stridor. [] Cardiovascular:Heart rate regular rhythm, no murmur [] Lungs & Thorax: Bilateral breath sounds clear to auscultation [] Abdomen: Bowel sounds normal, soft, low mid tenderness, no masses, no pulsatile masses. [] Skin: Warm, dry, no erythema, no rash. [] Back: No tenderness, no CVA tenderness. [] Extremities: No tenderness, no cyanosis, no clubbing, ROM intact, no edema. [] Neurologic: Alert and oriented X 3, normal motor function, normal sensory function, no focal deficits noted. [] Psychologic: Affect normal, judgement normal, mood normal. [] (LES ZAMORA APRN) EKG: EKG: [] (LES ZAMORA APRN) Radiology/Procedures: Radiology/Procedures: [] Impression: [facility] [address] [place] [address] IMAGING REPORT Signed PATIENT: TARUN THOMPSON ACCOUNT: [id number] : 1985 LOCATION: ER AGE: 34 SEX: F EXAM STATUS: REG ER ORD. PHYSICIAN: LES ZAMORA APRN REASON: pain, vag bleeding PROCEDURE: CT ABD PELV W/ IV CONTRST ONLY Exam: CT abdomen and pelvis with contrast INDICATION: Pain, vaginal bleeding TECHNIQUE: Sequential axial images through the abdomen and pelvis obtained following the administration of 75 mL of Omni 350 IV contrast. Sagittal and coronal reformatted images were reconstructed from the axial data and reviewed. Comparisons: 06/29/2017 FINDINGS: Heart size is normal. No pericardial visualized lung bases are clear. No pleural effusion. Liver, spleen, pancreas and adrenals are unremarkable. Gallbladder surgically absent. Kidneys demonstrate symmetric enhancement. No perinephric inflammation or hydronephrosis. No renal or ureteral calculi are identified. Bladder is decompressed. Mild fat stranding surrounding the bladder. Uterus is absent. No abnormal adnexal mass. Large and small bowel are unremarkable. Appendix is normal. No free abdominal air or fluid. No obstruction. Abdominal aorta has a normal course and caliber. Abdominal vasculature is patent. No enlarged intra-abdominal lymph nodes are identified. No suspicious osseous lesions or acute fractures. IMPRESSION: Perivesicular fat stranding, may relate to cystitis. Correlate with urinalysis. Exposure: One or more of the following in the visualized dose reduction techniques were utilized for this examination: 1. Automated exposure control 2. Adjustment of the MA and/or KV according to patient size 3. Use of iterative of reconstructive technique Electronically signed by: Savanna Bird MD (12/02/2019 4:04 PM) [id number] DICTATED and SIGNED BY: SAVANNA BIRD MD DATE: 12/02/19 1604 (LES ZAMORA APRN) Course & Med Decision Making: Course & Med Decision Making Pertinent Labs and Imaging studies reviewed. (See chart for details) See HPI. Alert and oriented x4. Speaks in full complete sentences. Ambulatory with a steady gait. Abdomen is soft but tender to the low mid abdomen. Skin pink warm and dry. IMPRESSION: Perivesicular fat stranding, may relate to cystitis. Correlate with urinalysis. I have ordered a dose of ciprofloxacin in the ED. Patient has received a liter of normal saline. She is received 2 doses of fentanyl and a dose of pyridium. Pelvic Exam: [facility] present Abdomen: Nontender External Genitalia: Normal Skin Speculum: Normal vaginal mucosa, White cervical discharge Bimanual: No adnexal masses or tenderness, No CMT Patient has had a allergic reaction that is locally around the IV site that is infusing ciprofloxacin. There is a hive is red raised and warm. Ciprofloxacin is stopped. Patient is given IV Benadryl. Patient denies shortness of breath and there is no facial swelling or mouth swelling. Wet prep came back as bacterial vaginosis. Patient will be sent home on [place], Pyridium and Macrobid. Chlamydia and gonorrhea was sent off. Patient states that she does not need to be treated this time for any sexual transmitted diseases. She states that she will wait for the results to come back. Patient is educated that she will only be called in 48 hours if her gonorrhea or chlamydia come back positive. [] (LES ZAMORA APRN) Dragon Disclaimer: Dragon Disclaimer: This electronic medical record was generated, in whole or in part, using a voice recognition dictation system. (LES ZAMORA APRN) Departure Departure Impression: Primary Impression: UTI (urinary tract infection) Qualified Codes: N30.01 - Acute cystitis with hematuria Additional Impression: Bacterial vaginosis Disposition: DC HOME SELF CARE/HOMELESS Condition: STABLE Referrals: JUMANA PARSONS MD (PCP) Patient Instructions: Bacterial Vaginosis, Urinary Tract Infection Additional Instructions: Follow up with primary care provider as soon as possible. Drink plenty of fluids . Take medication with food. Scripts Metronidazole (METROGEL-VAGINAL) 70 Gm Gel.w.appl 1 APPFUL VG QHS for 5 Days, #1 EACH 0 Refills Prov: LES ZAMORA LEAF BLENDER 10/10/20 Sulfamethoxazole/Trimethoprim (BACTRIM DS TABLET) 1 Each Tablet 1 TAB PO BID for 7 Days, #14 TAB 0 Refills Prov: BAFUSVANCEA M LEAF BLENDER 10/10/20 Hydrocodone/Apap 5-325 (NORCO 5-325 TABLET) 1 Each Tablet 1 TAB PO PRN Q6HRS PRN for PAIN, #8 TAB 0 Refills Prov: BAFUSVANCEA M LEAF BLENDER 10/10/20 Phenazopyridine Hcl (PYRIDIUM) 100 Mg Tablet 1 TAB PO TID for urinary discomfort for 3 Days, #9 TAB 0 Refills Prov: BAFUS,LES M LEAF BLENDER 10/10/20 Attending Signature Attending Signature I I have reviewed the non-physician practitioner's documentation, personally taken the patient's history, performed an exam and agree with the physical findings, clinical impression, and management plan. (EDUARDO BROWNE DO) Attending Signature I have participated in the care of this patient and I have reviewed and agree with all pertinent clinical information above including history, exam, and recommendations. (LES ZAMORA APRN) LES ZAMORA APRN Dec 02, 2019 14:49 EDUARDO BROWNE DO Dec 02, 2019 16:48
[2019-12-02] MEDS ORDERED: IV NORMAL SALINE 1000ML BAG 1,000 ML IV SCH (15:00)
[2019-12-02] MEDS ORDERED: fentaNYL PF VIAL 100 MCG/2 ML VIAL IVP ONE ×2 (15:00→16:15)
[2019-12-02 15:12] LABS: BASO # 0.1 x10^3/uL (0.0-0.2); BASO % 1 % (0-3); EOS # 0.2 x10^3/uL (0.0-0.7); EOS % 2 % (0-3); HEMATOCRIT 38.8 % (36.0-47.0); HEMOGLOBIN 13.4 g/dL (12.0-15.5); LYMPH # 1.8 x10^3/uL (1.0-4.8); LYMPH % 16 % (24-48); MEAN CORPUSCULAR HEMOGLOBIN 30 pg (25-35); MEAN CORPUSCULAR HGB CONC 34 g/dL (31-37); MEAN CORPUSCULAR VOLUME 86 fL (79-100); MONO # 0.7 x10^3/uL (0.0-1.1); MONO % 6 % (0-9); NEUT # 8.7 x10^3/uL (1.8-7.7); NEUT % 75 % (31-73); PLATELET COUNT 250 x10^3/uL (140-400); RED BLOOD COUNT 4.48 x10^6/uL (3.50-5.40); RED CELL DISTRIBUTION WIDTH 13.6 % (11.5-14.5); WHITE BLOOD COUNT 11.6 x10^3/uL (4.0-11.0)
[2019-12-02 15:21] LABS: CALCIUM 8.7 mg/dL (8.5-10.1); CREATININE 0.8 mg/dL (0.6-1.0); GFR 83.1; POTASSIUM 3.7 mmol/L (3.5-5.1)
[2019-12-02 15:23] LABS: CLARITY,URINE BLOODY; COLOR,URINE RED
[2019-12-02 15:25] LABS: RBC,URINE TNTC /HPF (0-2)
[2019-12-02 15:26] LABS: ALBUMIN 3.4 g/dL (3.4-5.0); ALBUMIN/GLOBULIN RATIO 0.9 (1.0-1.7); TOTAL BILIRUBIN 0.7 mg/dL (0.2-1.0); TOTAL PROTEIN 7.1 g/dL (6.4-8.2)
[2019-12-02 15:26] LABS: BACTERIA,URINE 0 /HPF (0-FEW); WBC,URINE TNTC /HPF (0-4)
[2019-12-02 15:33] LABS: PROTHROMBIN TIME PATIENT 12.9 SEC (11.7-14.0)
[2019-12-02] MEDS ORDERED: CONTRAST GIVEN. MC PRN (15:45)
[2019-12-02] MEDS ORDERED: IOHEXOL 300 MG/ML 100ML VIAL. IV ONE (16:00)
--- NOTE | 2019-12-02 16:07 | RAD ---
Exam: CT abdomen and pelvis with contrast INDICATION: Pain, vaginal bleeding TECHNIQUE: Sequential axial images through the abdomen and pelvis obtained following the administration of 75 mL of Omni 350 IV contrast. Sagittal and coronal reformatted images were reconstructed from the axial data and reviewed. Comparisons: 06/29/2017 FINDINGS: Heart size is normal. No pericardial visualized lung bases are clear. No pleural effusion. Liver, spleen, pancreas and adrenals are unremarkable. Gallbladder surgically absent. Kidneys demonstrate symmetric enhancement. No perinephric inflammation or hydronephrosis. No renal or ureteral calculi are identified. Bladder is decompressed. Mild fat stranding surrounding the bladder. Uterus is absent. No abnormal adnexal mass. Large and small bowel are unremarkable. Appendix is normal. No free abdominal air or fluid. No obstruction. Abdominal aorta has a normal course and caliber. Abdominal vasculature is patent. No enlarged intra-abdominal lymph nodes are identified. No suspicious osseous lesions or acute fractures. IMPRESSION: Perivesicular fat stranding, may relate to cystitis. Correlate with urinalysis. Exposure: One or more of the following in the visualized dose reduction techniques were utilized for this examination: 1. Automated exposure control 2. Adjustment of the MA and/or KV according to patient size 3. Use of iterative of reconstructive technique Electronically signed by: Savanna Garrett MD (12/02/2019 4:04 PM) [id number]
[2019-12-02] MEDS ORDERED: CIPR500T94 PO (16:21)
[2019-12-02] MEDS ORDERED: PHEN100T82 PO (16:21)
[2019-12-02] MEDS ORDERED: HYDR-3164 PO (16:22)
[2019-12-02] MEDS ORDERED: CIPROFLOXACIN 400MG PREMIX 200 ML IV ONE (16:30)
[2019-12-02] MEDS ORDERED: PHENAZOPYRIDINE 200 MG TABLET. PO ONE (16:45)
[2019-12-02] MEDS ORDERED: SULF1TAB24 PO (17:23)
[2019-12-02] MEDS ORDERED: METR70GE14 VG (17:24)
[2019-12-02] MEDS ORDERED: SMZ/TMP 800/160MG TABLET. PO ONE (17:30)
[2019-12-02] MEDS ORDERED: FAMOTIDINE 20 MG/2 ML VIAL IVP ONE (17:30)
[2019-12-02] MEDS ORDERED: diphenhydrAMINE 50 MG/ML VIAL IVP ONE (17:30)
[2019-12-04 22:08] LABS: GC PROBE Negative (Negative)
== END 2019-12-02 18:00 | disposition home or self-care (01) ==
LOC: ER 14:17
DX: N30.01 Acute cystitis with hematuria (principal); N76.0 Acute vaginitis; B96.89 Other specified bacterial agents as the cause of diseases classified elsewhere; R10.30 Lower abdominal pain, unspecified; F32.9 Major depressive disorder, single episode, unspecified; K21.9 Gastro-esophageal reflux disease without esophagitis; I10 Essential (primary) hypertension; G43.909 Migraine, unspecified, not intractable, without status migrainosus; F17.200 Nicotine dependence, unspecified, uncomplicated; Z90.710 Acquired absence of both cervix and uterus; Z90.49 Acquired absence of other specified parts of digestive tract; Z98.890 Other specified postprocedural states; Z90.89 Acquired absence of other organs; Z88.1 Allergy status to other antibiotic agents; Z91.018 Allergy to other foods; Z88.8 Allergy status to other drugs, medicaments and biological substances
CPT/HCPCS: 36415; 74177; 80053; 81001; 83690; 85025; 85610; 87086; 87491; 87591; 96361; 96365; 96375; 96376; 99285; J0744; J1200; J3010; J3490; J7030; Q0111; Q9967

== ENCOUNTER 2020-03-02 13:26 | Emergency (ER) | payer MEDICAID ==
[~2020-03-02] VITALS: Ht 160 cm; Wt 104.5 kg
[~2020-03-02 13:26] MED LIST changes: +CIPR500T94 PO; +METR70GE14 VG; +PHEN100T82 PO; +SULF1TAB24 PO
[2020-03-02 13:43] VITALS: BP 172/110
--- NOTE | 2020-03-02 13:55 | PHYS DOC ---
Past Medical History Past Medical History: Anxiety, Asthma, Depression, GERD, Hypertension, Mi graines, Ovarian Cyst Additional Past Medical Histor: L OVARY CYST (KIM SEGAL APRN) Past Surgical History: Cholecystectomy, , Hysterectomy, Tonsillectomy Additional Past Surgical Histo: partial hysterectomy, addenoids (KIM SEGAL APRN) Smoking Status: Current Every Day Smoker Alcohol Use: Rarely Drug Use: None (KIM SEGAL APRN) General Adult EDM: Chief Complaint: HEADACHE HPI: HPI: Patient is a 34 year old female with history of hypertension, migraine headaches, depression, anxiety, who presents to the ED today complaining of mild generalized migraine headache for 2 days. Patient reports nausea with no vomiting. Patient reports photophobia. Reports sensitivity to noise. States this is a typical migraine headache for her. She states that she tried her beta-chilango as well as dipping her head in hot water with no relief. (KIM SEGAL APRN) Review of Systems: Review of Systems: Constitutional: Denies fever or chills. [] Eyes: Denies change in visual acuity. [] HENT: Denies nasal congestion or sore throat. [] Respiratory: Denies cough or shortness of breath. [] Cardiovascular: Denies chest pain or edema. [] GI: Denies abdominal pain, nausea, vomiting, bloody stools or diarrhea. [] : Denies dysuria. [] Musculoskeletal: Denies back pain or joint pain. [] Integument: Denies rash. [] Neurologic: Reports migraine headache, denies focal weakness or sensory sprague ges. [] Psychiatric: Denies depression or anxiety. [] (KIM SEGAL APRN) Heart Score: Risk Factors: Risk Factors: DM, Current or recent (<one month) smoker, HTN, HLP, family history of CAD, obesity. Risk Scores: Score 0 - 3: 2.5% MACE over next 6 weeks - Discharge Home Score 4 - 6: 20.3% MACE over next 6 weeks - Admit for Clinical Observation Score 7 - 10: 72.7% MACE over next 6 weeks - Early Invasive Strategies (KIM SEGAL APRN) Current Medications: Current Medications Medications (Trade) Dose Ordered Sig/Mia Start Time Stop Time Status Last Admin Dose Admin Diphenhydramine HCl (Benadryl) 25 mg 1X ONCE 03/02/20 14:00 03/02/20 14:01 UNV Ketorolac Tromethamine (Toradol Im) 60 mg 1X ONCE 03/02/20 14:00 03/02/20 14:01 UNV Prednisone (Prednisone) 50 mg 1X ONCE 03/02/20 14:00 03/02/20 14:01 UNV Promethazine HCl (Phenergan) 12.5 mg 1X ONCE 03/02/20 14:00 03/02/20 14:01 UNV (MUTUNGA,KIM LITIGATION SERVICES MANAGER) Allergies: Allergies: Allergies Coded Allergies Type Severity Reaction Last Updated Verified cephalexin Allergy Severe TURN BLUE 10/01/16 Yes ciprofloxacin Allergy Intermediate 12/02/19 Yes coconut Allergy Intermediate hives 10/01/16 Yes ibuprofen Allergy Intermediate ASTHMA 10/01/16 Yes mushroom Allergy Intermediate hives 10/01/16 Yes tramadol Allergy Intermediate Hives 08/09/16 Yes (MUTUNGA,KIM LITIGATION SERVICES MANAGER) Physical Exam: PE: Constitutional: Well developed, well nourished, no acute distress, non-toxic appearance. [] HENT: Normocephalic, atraumatic, bilateral external ears normal, oropharynx moist, no oral exudates, nose normal. [] Eyes: PERRLA, EOMI, conjunctiva normal, no discharge. [] Neck: Normal range of motion, no tenderness, supple, no stridor. [] Cardiovascular:Heart rate regular rhythm, no murmur [] Lungs & Thorax: Bilateral breath sounds clear to auscultation [] Abdomen: Bowel sounds normal, soft, no tenderness, no masses, no pulsatile masses. [] Skin: Warm, dry, no erythema, no rash. [] Back: No tenderness, no CVA tenderness. [] Extremities: No tenderness, no cyanosis, no clubbing, ROM intact, no edema. [] Neurologic: Alert and oriented X 3, normal motor function, normal sensory f unction, no focal deficits noted. Cranial nerves II through XII intact Psychologic: Flat affect (MUTUNGA,KIM LITIGATION SERVICES MANAGER) Current Patient Data: Vital Signs: Vital Signs Date Time Temp Pulse Resp B/P (MAP) Pulse Ox O2 Delivery O2 Flow Rate FiO2 03/02/20 13:43 98.4 87 172/110 (130) 99 98.4 (MUTUNGA,KIM LITIGATION SERVICES MANAGER) EKG: EKG: [] (KIM SEGAL APRN) Radiology/Procedures: Radiology/Procedures: [] (KIM SEGAL APRN) Course & Med Decision Making: Course & Med Decision Making Pertinent Labs and Imaging studies reviewed. (See chart for details) This is a 34-year-old female patient presenting to the ED today with a migraine headache. I saw this patient at [facility] 3 days ago for similar complaints. She presents today stating she went to [facility] today for her migraine headache and they told her that to be that she needs to come to [place]. Patient is neurologically intact. She was given Toradol IM, promethazine p.o. Benadryl p.o. and prednisone and discharged to home. She has an appointment with her neurologist on Wednesday. (KIM SEGAL APRN) Dragon Disclaimer: Dragon Disclaimer: This electronic medical record was generated, in whole or in part, using a voice recognition dictation system. (KIM SEGAL APRN) Departure Departure Impression: Primary Impression: Migraine headache Qualified Codes: G43.909 - Migraine, unspecified, not intractable, without status migrainosus Disposition: HOME SELF CARE/HOMELESS Condition: STABLE Referrals: JUMANA PARSONS MD (PCP) follow up in one week SANDY LIU MD follow up on Wednesday Patient Instructions: Migraine Headache Additional Instructions: You are seen for migraine headache. Please follow-up with your neurologist on Wednesday as scheduled. Attending Signature Attending Signature I have reviewed the PA/CHEMICAL EQUIPMENT SALES ENGINEER's note and plan of care. I was available for consultation as needed during the patient's visit in the emergency department. I agree with the clinical impression, plan, and disposition. (YOEL JUSTICE DO) KIM SEGAL APRN Mar 02, 2020 13:55 YOEL JUSTICE DO Mar 02, 2020 14:44
[2020-03-02] MEDS ORDERED: predniSONE 10 MG TABLET PO ONE (14:00)
[2020-03-02] MEDS ORDERED: diphenhydrAMINE HCL 25 MG CAPSULE PO ONE (14:00)
[2020-03-02] MEDS ORDERED: PROMETHAZINE 12.5 MG TABLET. PO ONE (14:00)
[2020-03-02] MEDS ORDERED: KETOROLAC 60 MG/2 ML VIAL. IM ONE (14:00)
== END 2020-03-02 14:25 | disposition home or self-care (01) ==
LOC: ER 13:26
DX: G43.909 Migraine, unspecified, not intractable, without status migrainosus (principal); I10 Essential (primary) hypertension; J45.909 Unspecified asthma, uncomplicated; K21.9 Gastro-esophageal reflux disease without esophagitis; F32.9 Major depressive disorder, single episode, unspecified; F41.9 Anxiety disorder, unspecified; F17.200 Nicotine dependence, unspecified, uncomplicated; Z88.1 Allergy status to other antibiotic agents; Z88.6 Allergy status to analgesic agent; Z91.018 Allergy to other foods; Z88.8 Allergy status to other drugs, medicaments and biological substances
CPT/HCPCS: 96372; 99284; J1885; J7512; Q0163; Q0169

== ENCOUNTER 2020-08-15 16:55 | Emergency (ER) | payer MEDICAID ==
[~2020-08-15] VITALS: Ht 160 cm; Wt 113.6 kg
[2020-08-15 16:58] VITALS: BP 154/110
== END 2020-08-15 19:12 | disposition left against medical advice (07) ==
LOC: ER 16:55
DX: R51.9 Headache, unspecified (principal); R42 Dizziness and giddiness; R20.2 Paresthesia of skin; Z53.21 Procedure and treatment not carried out due to patient leaving prior to being seen by health care provider